=== PATIENT | female | born 1935 | race Caucasian/White ===

== ENCOUNTER → 2016-03-13 | Outpatient (CLI) | payer MEDICARE, BC ==
[2016-03-13 13:33] LABS: CH 31.1; HCT 46.4 % (34.0-46.0); HGB 14.5 gm/dL (11.4-16.0); MCH 30.6 pg (25.0-35.0); MCHC 31.2 g/dL (31.0-37.0); MCV 98.1 fL (80.0-100.0); Mean Platelet Volume 7.3; RBC 4.73 m/uL (3.80-5.40); RDW 14.3 % (11.5-15.5); WBC 8.9 k/uL (3.8-10.6)
[2016-03-13 13:46] LABS: Calcium 9.7 mg/dL (8.4-10.2); Magnesium 1.9 mg/dL (1.6-2.3); Phosphorous 4.1 mg/dL (2.5-4.5); Potassium 4.8 mmol/L (3.5-5.1); Uric Acid 6.1 mg/dL (3.7-7.4)
[2016-03-13 13:50] LABS: Appearance,Urine Cloudy (Clear); Bacteria,Urine Rare /hpf; Bilirubin,Urine Negative (Negative); Glucose,Urine (UA) Negative (Negative); Ketones,Urine Negative (Negative); Leukocyte Esterase,Urine Large (Negative); Mucus,Urine Rare /hpf; Nitrite,Urine Negative (Negative); Particle Count 5936; Protein,Urine Trace (Negative); RBC,Urine 1 /hpf (0-5); Squamous Epithelial Cell,Urine 2 /hpf (0-4); UA Billing (MACRO vs. MICRO) MICRO; Urobilinogen,Urine <2.0 mg/dL (<2.0); WBC,Urine 47 /hpf (0-5)
[2016-03-13 13:56] LABS: % Iron Saturation 34.9 % (20-50)
== END | disposition home or self-care (01) ==
LOC: LABWHC1 12:39
PROVIDERS: ATTEND Internal Medicine Endocrinology, Diabetes & Metabolism
DX: N18.3 Chronic kidney disease, stage 3 (moderate) (principal); D50.9 Iron deficiency anemia, unspecified; N39.0 Urinary tract infection, site not specified; N25.81 Secondary hyperparathyroidism of renal origin; E55.9 Vitamin D deficiency, unspecified; M10.9 Gout, unspecified; E05.90 Thyrotoxicosis, unspecified without thyrotoxic crisis or storm
CPT/HCPCS: 36415; 80048; 81001; 82306; 82728; 83540; 83550; 83735; 83970; 84100; 84439; 84443; 84550; 85027

== ENCOUNTER → 2016-05-05 | Outpatient (CLI) | payer MEDICARE, BC ==
--- NOTE | 2016-05-06 11:55 | US ---
EXAMINATION TYPE: US thyroid st tissue head/neck DATE OF EXAM: 05/05/2016 4:09 PM COMPARISON: 05/07/2014 CLINICAL HISTORY: E05.90 Thyrotoxicosis, unspecified wo thyrotoxic crisis. follow up nodules. Hypoth yroidism. No biopsies. On medication. GLAND SIZE: Right Lobe: 4.7 x 2.3 x 2.1 cm Overall Parenchyma: heterogenous Left Lobe: 5.1 x 2.6 x 2.5 cm Overall Parenchyma: heterogeneous Isthmus Thickness: 1.5 cm NODULES RIGHT: # of nodules measured on right: 3 1. 0.4 X 0.3 x 0.3 cm Calcification with shadowing at the upper pole with well-defined margins. Prior size: 0.4 x 0.4 x 0.4 cm 2. 0.8 X 0.6 x 0.8 cm isoechoic solid nodule at the mid pole with well-defined margins. This nodule is taller than wide and shows no intranodular vascularity. Prior size: 0.8 x 0.5 x 0.8 cm 3. 0.8 X 0.7 x 0.5 cm echogenic solid nodule at the lower pole with well-defined margins. This nodu le is taller than wide and shows no intranodular vascularity. Prior size: 1.0 x 0.6 x 0.8 cm LEFT: # of nodules measured on left: 2 1. 0.9 X 0.8 x 0.7 cm hypoechoic mixed nodule at the upper pole with well-defined margins. This no dule is taller than wide and shows no intranodular vascularity. Prior size: not seen previously 2. 2.1 X 1.8 x 1.7 cm Solid complex nodule at the mid pole with well-defined margins. This nodule i s taller than wide and shows peripheral vascularity. Prior size: 1.0 x 1.0 x 1.0 cm ISTHMUS: # of nodules measured in the isthmus: 0 TECHNOLOGIST IMPRESSION: Bilateral neck scanned, no abnormal lymphadenopathy noted. Bilateral heterogenous enlarged thyroid lobes. Previous isthmus nodules not seen. Isthmus appears h eterogenous and lobular with no distinct nodules seen. IMPRESSION: 1. New subcentimeter nodule left lobe thyroid. 2. Multinodular goiter
== END | disposition home or self-care (01) ==
LOC: RADUSMAIN 15:19
PROVIDERS: ATTEND Internal Medicine Endocrinology, Diabetes & Metabolism
DX: E04.2 Nontoxic multinodular goiter (principal); E05.90 Thyrotoxicosis, unspecified without thyrotoxic crisis or storm
CPT/HCPCS: 36415; 76536; 84439; 84443; 84480

== ENCOUNTER → 2016-07-20 | Outpatient (CLI) | payer MEDICARE, BC ==
--- NOTE | 2016-07-20 14:26 | CT ---
EXAMINATION TYPE: CT soft tissue neck w con DATE OF EXAM: 07/20/2016 2:05 PM HISTORY: Thyroid nodule per order. COMPARISON: Thyroid ultrasound May 05, 2016. CT DLP: 283.60 mGycm. Automated Exposure Control for Dose Reduction was Utilized. TECHNIQUE: CT scan of the neck is performed with IV Contrast, patient injected with 100 ml mL of Vis ipaque 320, axial images are obtained, coronal and sagittal reformatted images are reviewed. FINDINGS: Airway: Corresponding to recent ultrasound thyroid gland is enlarged in size and heterogeneous in julia earance. There is a hyperdense 1 cm nodule in the inferior left isthmus on axial image 17. There is d ominant heterogeneous hypoechoic nodule posteriorly upper pole level left thyroid lobe measuring 1.7 x 1.6 cm on axial image 25. This correlates with the largest complex cystic measured nodule on recent study. Smaller nodules on ultrasound are less well seen on CT. Mild underlying emphysematous changes felt present. Parotid/submandibular glands: Left submandibular gland is asymmetrically atrophic or surgically absen t. Carotid/Vascular Structures: There is mild to moderate calcified plaque at both carotid bulbs without significant stenosis identified bilaterally . Tortuous course to mid segment right common carotid ar alicia posterior to thyroid gland is noted. Dominant left vertebral artery is noted. Osseous Structures: There is grade 1 retrolisthesis of C5 on C6. There is mild to moderate multilevel spurring and disc space narrowing. Other: No greater than 1 cm neck adenopathy is seen. IMPRESSION: Correlating to recent ultrasound there is heterogeneous enlarged thyroid gland with a dom inant 1.8 cm nodule posteriorly upper to mid pole level left thyroid lobe, this nodule is increased i n size from prior study based on ultrasound report, consider ultrasound guided fine-needle aspiration to further assess.
== END | disposition home or self-care (01) ==
LOC: RADCTMAIN 10:55
PROVIDERS: ATTEND Surgery
DX: E04.1 Nontoxic single thyroid nodule (principal); E04.9 Nontoxic goiter, unspecified
CPT/HCPCS: 82565; 84520; 70491; 36415; Q9967

== ENCOUNTER 2016-08-08 08:31 | Inpatient (IN) | payer MEDICARE, BC ==
[2016-08-04 12:47] VITALS: BMI 23.4
[~2016-08-08 08:31] MED LIST: DEXAMETHASONE SOD PHOSPHATE 10 MG/ML 1 ML VIAL IV ONE; HEPARIN SODIUM,PORCINE 5,000 UNIT/ML 1 ML VIAL SQ ONE; MIDAZOLAM 2 MG/2 ML VIAL IV PRN; ONDANSETRON 4 MG/2 ML VIAL IVP ONE; Pre Op ABX Message 1 EACH MISC MISCELLANE ONE
[2016-08-08] MEDS ORDERED: LIDOCAINE 1% 20 ML VIAL (10MG/ML) FOR IV START INTRADERMA ONE (09:12)
[2016-08-08] MEDS ORDERED: HEPARIN SODIUM,PORCINE 5,000 UNIT/ML 1 ML VIAL SQ ONE (09:15)
[2016-08-08] MEDS: LACTATED RINGERS 1,000 ML IV SCH (09:23)
[2016-08-08 09:38] LABS: Calcium 8.6 mg/dL (8.4-10.2); Potassium 3.9 mmol/L (3.5-5.1)
[2016-08-08] MEDS ORDERED: LIDOCAINE 1% INJ 10MG/ML (20 ML MDV) ONE (09:39)
[2016-08-08] MEDS ORDERED: SUCCINYLCHOLINE CHLORIDE 100 MG/5 ML SYR IV ONE ×2 (09:39→13:39)
[2016-08-08] MEDS ORDERED: ePHEDrine 50 MG/ML 1 ML AMP ONE ×2 (09:39→13:39)
[2016-08-08] MEDS ORDERED: SODIUM CHLORIDE 0.9% 50 ML with ceFAZolin 1,000 MG IV ONE ×2 (09:39)
[2016-08-08] MEDS ORDERED: fentaNYL (PF) 50 MCG/ML 2 ML AMP ONE (09:39)
[2016-08-08] MEDS ORDERED: MIDAZOLAM 2 MG/2 ML VIAL ONE ×2 (09:39→13:39)
[2016-08-08] MEDS ORDERED: PHENYLEPHRINE-0.9% NACL SYG 1 MG/10 ML SYRINGE ONE (09:39)
[2016-08-08] MEDS ORDERED: LABETALOL 5 MG/ML VIAL MDV ONE (09:39)
[2016-08-08] MEDS ORDERED: PROPOFOL 10 MG/ML 20 ML VIAL IV ONE ×2 (09:39→13:39)
[2016-08-08] MEDS ORDERED: HYDROmorphone 1 MG/ML 1 ML SYRINGE IV PRN ×2 (12:38→14:55)
[2016-08-08] MEDS ORDERED: ONDANSETRON 4 MG/2 ML VIAL IVP PRN ×2 (12:38→14:55)
[2016-08-08] MEDS ORDERED: HYDROcodone/APAP 5-325MG 1 EACH TAB PO PRN (12:38)
--- NOTE | 2016-08-08 12:38 | P.OP ---
Date of Procedure: 08/08/16 Preoperative Diagnosis: Hyperthyroidism with bilateral thyroid nodules Postoperative Diagnosis: Same Procedure(s) Performed: Total thyroidectomy Implants: Anesthesia: OLEGA Surgeon: Ashley Rodgers Estimated Blood Loss (ml): 20 IV fluids (ml): 1,200 Urine output (ml): 50 Pathology: other (The thyroid gland) Condition: stable Disposition: PACU Indications for Procedure: bilateral thyroid nodules and hyperthyroidism Operative Findings: Bilateral thyroid nodules. Vascular inflamed gland Description of Procedure: Patient was taken to the operating room and following induction of general anesthesia , the patient was positioned in a beachchair position with some reverse Trendelenburg. Prior to this the [facility] nerve stimulator probes were placed. The neck was prepped and draped in a sterile fashion. A collar incision was made and carried down through the platysma. Superior and inferior skin flaps were developed. The strap muscles were then in the midline in the left lobe of the thyroid was approached. The graft was noted to be hypervascular and inflamed. The lobe was rotated medially. The superior pole vessels were identified. These were ligated and divided. The inferior pole vessels were likewise identified and ligated and divided. This dissection was performed on the gland in the superior and inferior parathyroids were identified and preserved. The recurrent laryngeal nerve was identified and preserved. Was rotated onto the trachea and the then multiple small vessels were identified which were ligated and divided. Some of these were divided using the Harmonic scalpel. Palpation in the neck did not reveal any adenopathy of concern. Following this the right side of the neck was approached. The side of the gland was also hypervascular and inflamed. The superior pole vessels were identified these were ligated and divided. Additionally the inferior pole vessels were identified and ligated and divided. The middle thyroid vein was identified this was ligated and divided. Superior and inferior parathyroid glands were identified and preserved. The recurrent laryngeal nerve was identified and preserved. The nerve on both sides was confirmed that the visual identification as well as identification within them and nerve stimulator. Palpation in the right side of the neck likewise did not reveal any adenopathy of concern. Following removal of the gland a suture was placed on the superior aspect of the left lobe for orientation. After we were assured that hemostasis was attained a Damien drain was placed. The strap muscles were closed in the midline using a 3-0 Vicryl suture. This was followed by closure of the platysma using a 3-0 Vicryl suture. The skin was closed using a 4-0 Monocryl and Steri-Strips were applied. All instrument and sponge counts were correct at the end of the case. The patient tolerated the procedure in stable condition.
[2016-08-08] MEDS ORDERED: DEXTROSE 5%-0.45% NACL 1,000 ML IV SCH (12:45)
[2016-08-08] MEDS ORDERED: CALCIUM CARBONATE 500 MG CHEWABLE PO PRN (12:48)
[2016-08-08] MEDS: HYDROmorphone 1 MG/ML 1 ML SYRINGE IVP PRN ×3 (13:21→15:30)
[2016-08-08] MEDS ORDERED: LACTATED RINGERS 1,000 ML IV ONE (13:39)
[2016-08-08] MEDS ORDERED: THROMBIN (BOVINE) 5,000 UNIT VIAL TOPICAL ONE (14:07)
[2016-08-08] MEDS ORDERED: GELATIN SPONGE,ABSORB (LARGE) 1 EACH SPONGE TOPICAL ONE (14:07)
--- NOTE | 2016-08-08 14:44 | P.PN ---
Elinor I was called to the recovery room approximately 30 minutes after the patient had arrived there secondary to the fact that the patient developed increased swelling in her neck. She had been evaluated initially upon arrival to the recovery room with no evidence of any swelling no drainage from her drain of concern and her voice strong. She had no change in her vital signs no change in her voice and no respiratory stridor. However, she was noted to have some increased swelling in her neck and therefore there was concern that she had bled into the area of the operative procedure and it was determined that she should be taken back to the operating room for irrigation and exploration. Dr. Gallo Lazo vascular surgery was consulted in the event that we should need vascular intervention. It was explained to the patient as well as to her that we would be returning to the operating room. It was felt that the patient was having some bleeding into her neck that going to go back to the operating room for exploration and evacuation of hematoma was the best option. They both were in agreement. They understood the risks and benefits and wished to proceed. Patient was immediately intubated in the preoperative area to avoid any airway compromise, the neck was noted to be swollen with some ecchymosis on the anterior neck. She was taken urgently to the operating suite. Objective - Vital Signs Vital signs: Vital Signs Temp 98.2 F 08/08/16 12:53 Pulse 96 08/08/16 13:23 Resp 18 08/08/16 13:23 BP 147/77 08/08/16 13:23 Pulse Ox 97 08/08/16 13:23 Intake & Output 08/07/16 08/08/16 08/08/16 18:59 06:59 18:59 Intake Total 1300 Output Total 220 Balance 1080 Intake: IV 1300 Output: Urine 50 Estimated Blood Loss 170 - Labs CBC & Chem 7: 08/08/16 09:15 Labs: Abnormal Lab Results - Last 24 Hours (Table) 08/08/16 Range/Units 09:15 Chloride 108 H (98-107) mmol/L Creatinine 1.15 H (0.52-1.04) mg/dL
--- NOTE | 2016-08-08 14:54 | P.OP ---
Date of Procedure: 08/08/16 Preoperative Diagnosis: Hematoma of the neck Postoperative Diagnosis: Same Procedure(s) Performed: Operative exploration, evacuation of hematoma, oversewing of a small unnamed vessel near the ligament of Valentine Implants: Anesthesia: OLEGA Surgeon: Ashley Rodgers Welding Equipment Repairer Supervisor #1: Gallo Alvarado Welding Equipment Repairer Supervisor #2: Sylwia Nelson Estimated Blood Loss (ml): 140 IV fluids (ml): 300 Pathology: none sent Condition: stable Disposition: PACU Indications for Procedure: Postoperative development of hematoma Operative Findings: Hematoma on the left side of the neck greater than the right with a small vascular bleeding near the area of the ligament of Valentine. This was less than a 0.5 mm in size Description of Procedure: The patient is an 80-year-old white female status post total thyroidectomy she had tolerated her initial operative procedure well with no evidence of intraoperative bleeding. The procedure had been done by Dr. Raymond Woodson with Sammie Nelson as certified surgical tech/first assistant. At the termination of the procedure there was no evidence of any active bleeding and the procedure was terminated and the patient taken to the recovery room. In the recovery room her incision was clean and dry her voice was strong and the patient was doing well. However, approximately a half an hour into the recovery room experience the nurse noted that the patients neck became acutley swollen. At this point we were concerned about a postoperative hematoma and it was determined that the take the patient should be taken back to the operating suite for exploration. Dr. Gallo Alvarado vascular surgery was consulted at this point, and joined us in the operating room. Upon arrival to the operating room general anesthesia was initiated. The neck was prepped and draped in a sterile fashion. The prior incision was opened and a hematoma was evacuated. Approximately 140 mL of old blood was noted. Upon evacuation of the hematoma there was noted on the left paratracheal area near the ligament of Valentine a very small vessel with active bleeding. This site was oversewn using Prolene suture. We were careful to avoid injury to the recurrent laryngeal nerve in the process. After this had been accomplished the wound was well irrigated. No other active site of bleeding was identified. Gelfoam and thrombin were placed on each side of the neck. A pullout channeled drain was placed. This was brought out lateral to the incision. Again after we were assured that hemostasis was attained the strap muscles were closed in the midline followed by closure of the platysma with Vicryl suture. The skin was closed using 4-0 Monocryl. Steri-Strips were applied. The patient tolerated procedure in stable condition. All instrument and sponge counts were correct at the end of the case.
[2016-08-08] MEDS ORDERED: NALOXONE 0.4 MG/ML 1 ML VIAL IV PRN (14:55)
[2016-08-08 15:59] LABS: Basophils % (A) 0 %; CHCM 32.4; Eosinophils # (A) 0.1 k/uL (0-0.7); Eosinophils % (A) 0 %; HCT 39.8 % (34.0-46.0); HDW 2.55; Luc # (Auto) 0.04; Luc % (Auto) 0; Lymphocytes # (A) 0.7 k/uL (1.0-4.8); Lymphocytes % (A) 6 %; MCH 31.6 pg (25.0-35.0); MCHC 32.7 g/dL (31.0-37.0); MCV 96.5 fL (80.0-100.0); Mean Platelet Volume 6.3; Monocytes # (A) 0.2 k/uL (0-1.0); Monocytes % (A) 1 %; Neutrophils # (A) 11.1 k/uL (1.3-7.7); Neutrophils % (A) 92 %; RBC 4.13 m/uL (3.80-5.40); RDW 14.1 % (11.5-15.5); WBC (Perox) 12.68
[2016-08-08] MEDS ORDERED: HEPARIN SODIUM,PORCINE 5,000 UNIT/ML 1 ML VIAL SQ SCH ×2 (16:00)
[2016-08-08 16:05] LABS: INR 1.1 (<1.1); Prothrombin Time 11.3 sec (9.0-12.0)
[2016-08-08 16:21] LABS: Glucose,Whole Blood 154 mg/dL (75-99)
[2016-08-08 17:03] LABS: Calcium 8.1 mg/dL (8.4-10.2); Magnesium 1.4 mg/dL (1.6-2.3); Phosphorous 4.3 mg/dL (2.5-4.5); Total Bilirubin 0.7 mg/dL (0.2-1.3); Total Protein 6.2 g/dL (6.3-8.2)
[2016-08-08 17:04] LABS: Potassium 3.9 mmol/L (3.5-5.1)
[2016-08-08] MEDS: DEXTROSE 5%-0.45% NACL 1,000 ML IV SCH (17:25)
[2016-08-08] MEDS: CALCIUM CARBONATE 500 MG CHEWABLE PO SCH ×2 (18:10→20:35)
[2016-08-08] MEDS: MAGNESIUM SULFATE-D5W PMX 1 GM in DEXTROSE/WATER 1 100ML.BAG IVPB SCH ×3 (18:10→20:25)
[2016-08-08] MEDS: FAMOTIDINE 20 MG TAB PO SCH (20:34)
[2016-08-08] MEDS ORDERED: FAMOTIDINE 20 MG TAB PO SCH (21:00)
[2016-08-08] MEDS ORDERED: CALCIUM GLUCONATE 1,000 MG in SODIUM CHLORIDE 0.9% 100 ML IVPB ONE (23:11)
[2016-08-09] MEDS ORDERED: HYDROcodone/APAP 5-325MG 1 EACH TAB PO PRN (00:01)
[2016-08-09 04:57] LABS: Basophils % (A) 0 %; CHCM 31.4; Eosinophils % (A) 0 %; HCT 36.5 % (34.0-46.0); HDW 2.41; HGB 11.5 gm/dL (11.4-16.0); Luc # (Auto) 0.19; Luc % (Auto) 2; Lymphocytes # (A) 1.2 k/uL (1.0-4.8); Lymphocytes % (A) 12 %; MCH 31.1 pg (25.0-35.0); MCHC 31.4 g/dL (31.0-37.0); MCV 99.1 fL (80.0-100.0); Mean Platelet Volume 7.1; Monocytes # (A) 0.6 k/uL (0-1.0); Monocytes % (A) 6 %; Neutrophils # (A) 8.1 k/uL (1.3-7.7); Neutrophils % (A) 81 %; RBC 3.68 m/uL (3.80-5.40); WBC 10.1 k/uL (3.8-10.6); WBC (Perox) 10.41
[2016-08-09 05:15] LABS: Calcium 7.9 mg/dL (8.4-10.2); Magnesium 2.3 mg/dL (1.6-2.3); Phosphorous 3.8 mg/dL (2.5-4.5); Potassium 3.8 mmol/L (3.5-5.1)
[2016-08-09] MEDS ORDERED: CALCIUM GLUCONATE 1,000 MG in SODIUM CHLORIDE 0.9% 100 ML IVPB ONE (05:49)
[2016-08-09] MEDS: LACTATED RINGERS 1,000 ML IV SCH (06:26)
[2016-08-09] MEDS: DEXTROSE 5%-0.45% NACL 1,000 ML IV SCH ×2 (06:39→10:56)
[2016-08-09] MEDS ORDERED: POTASSIUM CHLORIDE ER 20 MEQ TAB.ER PO ONE ×2 (06:50→12:00)
[2016-08-09] MEDS: CALCIUM CARBONATE 500 MG CHEWABLE PO SCH ×3 (08:13→20:54)
[2016-08-09] MEDS: FAMOTIDINE 20 MG TAB PO SCH (08:13)
[2016-08-09] MEDS ORDERED: ASCORBIC ACID 500 MG TAB PO SCH (09:00)
[2016-08-09] MEDS ORDERED: FOLIC ACID 1 MG TAB PO SCH (09:00)
[2016-08-09] MEDS ORDERED: prednisoLONE ACETATE 1% OPHTH DROPS 1 ML BTL LEFT EYE SCH (09:00)
--- NOTE | 2016-08-09 09:06 | P.CNPUL ---
History of Present Illness Consult date: 08/09/16 Chief complaint: ICU management post-thyroidectomy History of present illness: 80-year-old female patient with known history of bilateral thyroid nodules and hyperthyroidism. The patient was taken to the operating room yesterday by Dr. Lucinda Woodson and she underwent a total thyroidectomy. Estimated blood loss was 20 mL and the patient received a total of 1200 mL of IV fluids and operating room. Approximately 30 minutes., The surgeon was contacted back in the recovery room as the patient was getting increased swelling in her neck. She was evaluated in the recovery and apparently she had no significant swelling and there was no active drainage from her drain and she had a strong voice. Subsequently she was noted to have some increased swelling in the neck and there was a concern of bleeding. Was determined to take the patient back to the operating room for exploration and irrigation. The patient was immediately intubated in the preoperative area to avoid any airway compromise. The neck was noted to be swollen and there was some ecchymosis on the anterior neck. She was taken back to the operating room and the patient underwent exploration and hematoma was identified in the neck and this was evacuated and oversewing of a small on May vessel near the ligament of Valentine was performed. Following that, the patient got moved to the intensive care for further monitoring. Note that after controlling of the bleeding in the evacuation of the hematoma the patient was extubated and currently she is on room air with a pulse ox of 97%. The patient has a DUKE drain in the anterior neck area and has drained approximately 100 mL since 8 PM yesterday. She is not having any respiratory distress pH is able to talk. She is a strong voice. No stridor. She is a bit hypothermic with temperature any 5.2 and she was given external warming and she is up to 97.4. The hemoglobin is stable and it is above 11. She was given 1 g of calcium for a calcium level of 7.9. This was subsequently repeated. As such she received a total of 2 g of calcium. She is on IV fluids with D5 half-normal saline at the rate of 100 mL an hour. She has no active pain issues. No change in mental status. Lungs remain clear. Review of Systems All systems: negative Constitutional: Denies chills, Denies fever Eyes: denies blurred vision, denies pain Ears, nose, mouth and throat: Denies headache, Denies sore throat Cardiovascular: Denies chest pain, Denies shortness of breath Respiratory: Denies cough Gastrointestinal: Denies abdominal pain, Denies diarrhea, Denies nausea, Denies vomiting Genitourinary: Denies dysuria, Denies hematuria Musculoskeletal: Denies myalgias Integumentary: Denies pruritus, Denies rash Neurological: Denies numbness, Denies weakness Psychiatric: Denies anxiety, Denies depression Endocrine: Denies fatigue, Denies weight change Past Medical History Past Medical History: Blood Disorder, Deep Vein Thrombosis (DVT), Eye Disorder, GERD/Reflux, Thyroid Disorder Additional Past Medical History / Comment(s): History of recurrent DVTs, possible hypercoagulable state nontender the patient has been told to have a pins position for a blood clotting disorder, chronic pernicious anemia, cystocele, hemorrhoids, abdominal wall hernia, thyroid nodules, osteoporosis, GERD, suspected Graves' disease History of Any Multi-Drug Resistant Organisms: None Reported Past Surgical History: Cholecystectomy, Hernia Repair, Hysterectomy Additional Past Surgical History / Comment(s): Colonoscopy; EGD; EXC Cataracts. Past Anesthesia/Blood Transfusion Reactions: No Reported Reaction Past Psychological History: No Psychological Hx Reported Smoking Status: Never smoker Past Alcohol Use History: None Reported Past Drug Use History: None Reported - Past Family History Mother Family Medical History: No Reported History Medications and Allergies Home Medications Medication Instructions Recorded Confirmed Type Ascorbic Acid [Vitamin C] 500 mg PO DAILY 05/14/15 08/08/16 History Cholecalciferol [Vitamin D3] 1,000 unit PO DAILY 05/14/15 08/08/16 History Folic Acid 0.4 mg PO DAILY 05/14/15 08/08/16 History Multivitamins, Thera [Multivitamin] 1 tab PO DAILY 05/14/15 08/08/16 History Cyanocobalamin [Vitamin B-12 1,000 mcg SQ QMONTH 08/04/16 08/08/16 History Injection] Iodine Strong 5% 3 drops PO TID 08/04/16 08/08/16 History Loperamide HCl [Imodium A-D] 2 mg PO DAILY PRN 08/04/16 08/08/16 History Omeprazole [PriLOSEC] 20 mg PO AC-BRKFST 08/04/16 08/08/16 History Potassium Magnesium 1 tab PO DAILY 08/04/16 08/08/16 History Propylene Glycol [Systane Balance] 1 - 2 drop BOTH EYES QID PRN 08/04/16 History Selenium 200 mcg PO DAILY 08/04/16 08/08/16 History prednisoLONE ACETATE 1% OPHTH 1 drops LEFT EYE Q48H 08/04/16 08/08/16 History [Pred Forte 1%] Methimazole [Tapazole] 17.5 mg PO DAILY 08/08/16 08/08/16 History Allergies Allergy/AdvReac Type Severity Reaction Status Date / Time calcitriol [From Rocaltrol] Allergy Rash/Hives Verified 08/08/16 09:03 pneumococcal 23-valent Allergy Swelling Verified 08/08/16 09:03 polysacchari [From Pneumovax 23] aspirin AdvReac Nausea & Verified 08/08/16 09:03 Vomiting clopidogrel [From Plavix] AdvReac Nausea & Verified 08/08/16 09:03 Vomiting codeine AdvReac Nausea & Verified 08/08/16 09:03 Vomiting latex AdvReac Rash/Hives Verified 08/08/16 09:03 propoxyphene HCl AdvReac Unknown Verified 08/08/16 09:03 [From Darvon] Sulfa (Sulfonamide AdvReac Nausea & Verified 08/08/16 09:03 Antibiotics) Vomiting blood thinners AdvReac Nausea & Uncoded 08/08/16 09:03 Vomiting, OVER THINNED BLOOD SEVERELY Physical Exam Vitals: Vital Signs Temp Pulse Pulse Pulse Resp BP BP 08/09/16 07:00 64 20 140/72 08/09/16 06:00 64 13 123/66 08/09/16 05:00 68 14 115/59 08/09/16 04:00 72 14 134/78 08/09/16 03:00 97.4 F L 68 14 125/63 08/09/16 02:00 73 25 H 136/66 08/09/16 01:00 71 20 116/61 08/09/16 00:00 97.4 F L 74 25 H 131/71 08/08/16 23:00 95.2 F L 75 19 108/71 08/08/16 22:00 77 14 118/73 08/08/16 21:00 95.2 F L 80 22 120/74 08/08/16 20:00 90 19 138/75 08/08/16 19:49 08/08/16 19:00 92 18 138/75 08/08/16 18:00 90 15 127/78 08/08/16 17:30 96 21 121/82 08/08/16 17:00 95 18 121/82 08/08/16 16:30 98 18 133/71 08/08/16 16:27 97.6 F 97 18 133/71 08/08/16 16:00 102 H 16 129/76 08/08/16 15:45 101 H 16 131/70 08/08/16 15:30 106 H 16 132/65 08/08/16 15:15 18 122/74 08/08/16 15:01 97.6 F 99 18 123/70 08/08/16 13:23 96 18 147/77 08/08/16 13:08 97 18 136/80 08/08/16 12:53 98.2 F 99 20 151/73 08/08/16 09:01 98.2 F 87 18 BP Pulse Ox 08/09/16 07:00 97 08/09/16 06:00 97 08/09/16 05:00 96 08/09/16 04:00 97 08/09/16 03:00 95 08/09/16 02:00 96 08/09/16 01:00 98 08/09/16 00:00 95 08/08/16 23:00 97 08/08/16 22:00 96 08/08/16 21:00 97 08/08/16 20:00 97 08/08/16 19:49 94 L 08/08/16 19:00 97 08/08/16 18:00 94 L 08/08/16 17:30 97 08/08/16 17:00 98 08/08/16 16:30 94 L 08/08/16 16:27 96 08/08/16 16:00 95 08/08/16 15:45 97 08/08/16 15:30 95 08/08/16 15:15 96 08/08/16 15:01 98 08/08/16 13:23 97 08/08/16 13:08 98 08/08/16 12:53 98 08/08/16 09:01 154/70 97 Intake and Output 08/08/16 08/09/16 08/09/16 22:59 06:59 14:59 Intake Total 990 900 200 Output Total 190 118 Balance 800 782 200 Intake: IV 150 Intake, IV Titration 600 900 200 Amount Calcium Gluconate 1,000 100 100 mg In Sodium Chloride 0.9 % 100 ml @ 100 mls/hr IVPB ONCE ONE Rx#: [id number] Dextrose 5%-0.45% NaCl 1, 300 800 100 000 ml @ 100 mls/hr IV . Q10H [facility] Rx#:[id number] Magnesium Sulfate-D5w Pmx 300 1 gm In Dextrose/Water 1 100ml.bag @ 100 mls/hr IVPB Q1H [facility] Rx#: [id number] Oral 240 Output: Drainage 40 43 Anterior Neck 40 43 Urine 150 75 Other: Voiding Method Indwelling Catheter Indwelling Catheter # Voids 1 # Bowel Movements 1 Weight 54.431 kg 60.1 kg Head exam was generally normal. There was no scleral icterus or corneal arcus. Mucous membranes were moist. The patient has exophthalmos more so in the left eye. Neck is supple. The patient has a soft neck which is free of any hematoma at this point. Surgical incision is clean and intact. The patient has a DUKE drain in place. No hematoma. No firmness. No collection. Full range of motion. There is a skin bruising over the anterior neck and this is extending to the sternum and anterior chest area. No swelling however.Lungs were clear to auscultation and percussion, and with normal diaphragmatic excursion. No wheezes or rales were noted. Cardiac exam revealed the PMI to be normally situated and sized. The rhythm was regular and no extrasystoles were noted during several minutes of auscultation. The first and second heart sounds were normal and physiologic splitting of the second heart sound was noted. There were no murmurs, rubs, clicks, or gallops. Abdomen is soft and the patient is an anterior abdominal wall incision and a large reducible nonincarcerated anterior abdominal wall hernia. Bowel sounds are present.Examination of the extremities revealed easily palpable radial, femoral and pedal pulses. There was no cyanosis, clubbing or edema. Results - Laboratory Findings CBC and BMP: 08/09/16 03:54 08/09/16 03:54 PT/INR, D-dimer PT 11.3 sec (9.0-12.0) 06/06/17 15:50 INR 1.1 (<1.1) 08/08/16 15:50 Abnormal lab findings: Abnormal Labs 08/08/16 08/08/16 08/08/16 09:15 15:00 15:50 WBC 12.0 H RBC Neutrophils # 11.1 H Lymphocytes # 0.7 L Sodium Chloride 108 H 111 H Carbon Dioxide 18 L Creatinine 1.15 H 1.18 H Glucose 150 H POC Glucose (mg/dL) Calcium 8.1 L Magnesium 1.4 L Total Protein 6.2 L Albumin 3.2 L 08/08/16 08/08/16 08/09/16 16:18 22:13 03:54 WBC RBC Neutrophils # Lymphocytes # Sodium Chloride Carbon Dioxide Creatinine Glucose POC Glucose (mg/dL) 154 H Calcium 7.6 L 7.9 L Magnesium Total Protein Albumin 08/09/16 08/09/16 03:54 03:54 WBC RBC 3.68 L Neutrophils # 8.1 H Lymphocytes # Sodium 134 L Chloride Carbon Dioxide Creatinine 1.12 H Glucose 136 H POC Glucose (mg/dL) Calcium 7.9 L Magnesium Total Protein Albumin Assessment and Plan Plan: Assessment 1 Graves' disease/thyroid nodules, status post total thyroidectomy, postop day # 1 2 post thyroidectomy neck hematoma secondary to a bleeding vessel, patient is status post exploration and control of the bleeding and evacuation of the hematoma, postop day #1 and the patient was premedicated with iodine oral prior to surgery. She was maintained and Tapazole for hyperthyroidism on outpatient basis. 3 Graves' disease ophthalmopathy 4 postoperative hypocalcemia, given a total of 2 g of calcium, we'll monitor the calcium level and look for any signs of hypoparathyroidism 5 anterior abdominal wall hernia 6 pernicious anemia 7 history of hypercoagulability with recurrent DVT is currently on no anticoagulants Plan The patient's airway is secured and there is evidence of a hematoma in the neck nor there is any evidence of airway compromise. Keep the DUKE drain in place for another 24 hours and monitor the output. SCDs to lower extremities for DVT prophylaxis. May possibly need thyroid hormone supplementation I will leave it up to the surgeon and with diagnostic technician to decide upon that. Monitor the calcium level and watch for any signs of hypo-calcium anemia. The patient is an IV fluids this will be continued. Adequate pain control. Steroid eye drops. Move the patient to a medical floor. 6 history of DVT with a possible hypercoagulable state
[2016-08-09 11:49] LABS: Calcium 8.2 mg/dL (8.4-10.2); Potassium 3.6 mmol/L (3.5-5.1)
[2016-08-09] MEDS ORDERED: Potassium Replacement Protocol 1 EACH MISC MISCELLANE PRN (11:55)
[2016-08-09] MEDS ORDERED: CHOLECALCIFEROL 1,000 UNIT TAB PO SCH (12:00)
--- NOTE | 2016-08-09 12:03 | P.PN ---
Subjective 80-year-old female being seen and examined in the ICU. Patient is postop total thyroidectomy done on August 08 for bilateral thyroid nodules and hyperthyroidism postop done on August 08 patient developed a hematoma return to the operating room to undergo operative exploration evacuation of a hematoma oversewing of a small unnamed vessel near the ligament of Valentine currently. Currently patient is sitting up in the bed taking a diet. Dressing to the surgical site is dry. Patient has a Jesus-Lu drain to the anterior neck area has put out 100 mL' s in the last 12 hours. Patient's voice is not hoarse. Patient is not having any respiratory distress. Currently patient is on a nasal cannula at 2 L a sats are 99% patient states she has chronic tingling to her fingers on her left hand but is not experiencing any new tingling to the bilateral hands calcium 7.9 this morning mg 2.3 repeat calcium is currently pending Objective - Vital Signs Vital signs: Vital Signs Temp 97.5 F L 08/09/16 08:00 Pulse 64 08/09/16 11:00 Resp 16 08/09/16 11:22 BP 135/64 08/09/16 11:00 Pulse Ox 100 08/09/16 11:00 Intake & Output 08/08/16 08/09/16 08/09/16 18:59 06:59 18:59 Intake Total 2190 1300 700 Output Total 320 208 400 Balance 1870 1092 300 Weight 54.431 kg 60.1 kg Intake: IV 1750 Intake, IV Titration 200 1300 700 Amount Calcium Gluconate 1,000 100 200 mg In Sodium Chloride 0.9 % 100 ml @ 100 mls/hr IVPB ONCE ONE Rx#: [id number] Dextrose 5%-0.45% NaCl 1, 100 1000 500 000 ml @ 100 mls/hr IV . Q10H LISA Rx#:[id number] Magnesium Sulfate-D5w Pmx 100 200 1 gm In Dextrose/Water 1 100ml.bag @ 100 mls/hr IVPB Q1H LISA Rx#: [id number] Oral 240 Output: Drainage 83 Anterior Neck 83 Urine 150 125 400 Estimated Blood Loss 170 Other: Voiding Method Indwelling Catheter Indwelling Catheter Toilet # Voids 1 1 # Bowel Movements 1 1 - Exam Physical exam 80-year-old female sitting up in bed taking a diet voice is not hoarse denies any numbness to bilateral hands no difficulty in swallowing pleasant cooperative oriented 3 Lungs essentially clear with adequate air movement currently on room air Heart S1-S2 audible and regular monitor sinus Neck dressing to the surgical site dry Jesus-Lu drain in place anterior 20 mL noted in the bulb no clots Abdomen soft nontender reports no nausea vomiting does have a soft abdominal wall hernia Extremities no edema to the upper or lower extremities - Labs CBC & Chem 7: 08/09/16 03:54 08/09/16 03:54 Labs: Abnormal Lab Results - Last 24 Hours (Table) 08/08/16 08/08/16 08/08/16 Range/Units 13:10 15:00 15:50 WBC 12.0 H (3.8-10.6) k/uL RBC (3.80-5.40) m/uL Neutrophils # 11.1 H (1.3-7.7) k/uL Lymphocytes # 0.7 L (1.0-4.8) k/uL Sodium (137-145) mmol/L Chloride 111 H (98-107) mmol/L Carbon Dioxide 18 L (22-30) mmol/L Creatinine 1.18 H (0.52-1.04) mg/dL Glucose 150 H (74-99) mg/dL POC Glucose (mg/dL) (75-99) mg/dL Calcium 8.1 L (8.4-10.2) mg/dL Magnesium 1.4 L (1.6-2.3) mg/dL Total Protein 6.2 L (6.3-8.2) g/dL Albumin 3.2 L (3.5-5.0) g/dL PTH Intact <5.5 L (14.0-72.0) pg/mL 08/08/16 08/08/16 08/09/16 Range/Units 16:18 22:13 03:54 WBC (3.8-10.6) k/uL RBC (3.80-5.40) m/uL Neutrophils # (1.3-7.7) k/uL Lymphocytes # (1.0-4.8) k/uL Sodium (137-145) mmol/L Chloride (98-107) mmol/L Carbon Dioxide (22-30) mmol/L Creatinine (0.52-1.04) mg/dL Glucose (74-99) mg/dL POC Glucose (mg/dL) 154 H (75-99) mg/dL Calcium 7.6 L 7.9 L (8.4-10.2) mg/dL Magnesium (1.6-2.3) mg/dL Total Protein (6.3-8.2) g/dL Albumin (3.5-5.0) g/dL PTH Intact (14.0-72.0) pg/mL 08/09/16 08/09/16 Range/Units 03:54 03:54 WBC (3.8-10.6) k/uL RBC 3.68 L (3.80-5.40) m/uL Neutrophils # 8.1 H (1.3-7.7) k/uL Lymphocytes # (1.0-4.8) k/uL Sodium 134 L (137-145) mmol/L Chloride (98-107) mmol/L Carbon Dioxide (22-30) mmol/L Creatinine 1.12 H (0.52-1.04) mg/dL Glucose 136 H (74-99) mg/dL POC Glucose (mg/dL) (75-99) mg/dL Calcium 7.9 L (8.4-10.2) mg/dL Magnesium (1.6-2.3) mg/dL Total Protein (6.3-8.2) g/dL Albumin (3.5-5.0) g/dL PTH Intact (14.0-72.0) pg/mL Assessment and Plan Plan: Impression History of Graves' disease with hyperthyroidism postop August 08 total thyroidectomy Post op unexpected thyroidectomy hematoma of the neck operative exploration, evacuation of hematoma, oversewing of a small unname vessel near the ligament of Valentine Chronic anterior abdominal wall hernia stable Pernicious anemia Postoperative hypo-calcium given a total of 2 g of calcium Graves' disease with thyroid nodules Plan Await endocrinology Dr. Ruff's input for management of the calcium levels Continue to monitor and watch for any signs of hypocalcemia Continue postop surgical care Pain control Patient may be moved to medical floor SCDs to the lower extremities for DVT prophylaxis Jesus-Lu drain management as ordered Further recommendations pending The above dictated assessment and findings were discussed with Dr. Lucinda Andrade Impression and the plan of care have been dictated as directed. Nallely Ayala nurse practitioner acting as a scribe for Dr. Restrepo
[2016-08-09] MEDS: HYDROcodone/APAP 5-325MG 1 EACH TAB PO PRN ×2 (15:46→20:55)
[2016-08-09] MEDS ORDERED: LOPERAMIDE 2 MG CAP PO STA (16:16)
[2016-08-09] MEDS: LOPERAMIDE 2 MG CAP PO PRN (16:46)
[2016-08-09 19:27] LABS: Basophils % (A) 0 %; CH 31.2; CHCM 32.2; Eosinophils # (A) 0.1 k/uL (0-0.7); Eosinophils % (A) 1 %; HDW 2.56; HGB 12.2 gm/dL (11.4-16.0); Luc # (Auto) 0.12; Luc % (Auto) 1; Lymphocytes # (A) 1.4 k/uL (1.0-4.8); Lymphocytes % (A) 16 %; MCH 31.3 pg (25.0-35.0); MCHC 32.1 g/dL (31.0-37.0); MCV 97.7 fL (80.0-100.0); Mean Platelet Volume 6.7; Monocytes # (A) 0.4 k/uL (0-1.0); Monocytes % (A) 4 %; Neutrophils # (A) 6.5 k/uL (1.3-7.7); Neutrophils % (A) 77 %; RBC 3.89 m/uL (3.80-5.40); RDW 14.1 % (11.5-15.5); WBC 8.5 k/uL (3.8-10.6); WBC (Perox) 8.72
[2016-08-09 19:44] LABS: Calcium 8.4 mg/dL (8.4-10.2); Potassium 4.7 mmol/L (3.5-5.1)
--- NOTE | 2016-08-09 21:44 | PN ---
DATE OF SERVICE: 08/09/2016 CHIEF COMPLAINT: Status post thyroidectomy. HISTORY OF PRESENT ILLNESS: This lady is doing well. She has had no hoarseness, fever, chills, significant pain, swelling, carpopedal spasm, etc. PHYSICAL EXAM: Vital signs are normal. Chest is clear. Cardiac exam is normal. Dressing is dry. IMPRESSION: Status post thyroidectomy. PLAN: No recommendation for change in program. Her calcium is slightly low.
--- NOTE | 2016-08-09 21:50 | CONS ---
DATE OF CONSULTATION: CHIEF COMPLAINT: Status post thyroidectomy for Graves' disease. HISTORY OF PRESENT ILLNESS: This lady is admitted for elective total thyroidectomy. REVIEW OF SYSTEMS: She has had no recent headaches, chest pain, shortness of breath, abdominal pain, fever, chills, nausea, vomiting, diarrhea, etc. Past medical history, family history and personal and social histories are unremarkable and can be found in her initial admitting summary. ALLERGIES: 1. ROCALTROL. 2. COUMADIN. 3. FLU VACCINE. 4. PNEUMOVAX. 5. LATEX. 6. CODEINE. 7. ASPIRIN. 8. SULFA. Medications have included: 1. Tapazole 10 mg once a day. 2. Magnesium oxide 400 mg once a day. 3. Omeprazole 20 mg once a day. 4. Prednisolone ophthalmic suspension 1% one drop to the left eye every day. 5. Vitamin B12 once a month. 6. Vitamin D 50,000 units a month. 7. Calcium 1300 mg a day. 8. Iron 325 mg t.i.d. 9. Vitamin C. 10. Folic acid. The remainder of her history is unremarkable. PHYSICAL EXAMINATION: Blood pressure 138/74 with a pulse of 81, respirations of 20, and she is afebrile. In general she appeared to be well-developed, well-nourished, in no acute distress. Skin color is normal. Skin is warm and dry. Lymph nodes are not enlarged. Head, ears, eyes, nose, mouth and throat were normal. Neck veins are not distended. Dressing was in place on the neck. Chest is clear. Cardiac exam is normal with sinus rhythm and no murmurs. ABDOMEN: Soft, nontender. She had multiple scars with a ventral hernia from previous surgeries. EXTREMITIES: Normal. Neurologically she is intact. Voice is intact. IMPRESSION: Status post thyroidectomy for Graves' disease. RECOMMENDATION: No change in program or medications.
[2016-08-10] MEDS: DEXTROSE 5%-0.45% NACL 1,000 ML IV SCH ×2 (00:31→15:04)
[2016-08-10] MEDS: HYDROcodone/APAP 5-325MG 1 EACH TAB PO PRN ×3 (00:59→15:10)
[2016-08-10 07:11] LABS: Basophils % (A) 0 %; CHCM 31.3; Eosinophils # (A) 0.1 k/uL (0-0.7); Eosinophils % (A) 2 %; HCT 38.8 % (34.0-46.0); HDW 2.45; HGB 12.2 gm/dL (11.4-16.0); Luc # (Auto) 0.09; Luc % (Auto) 2; Lymphocytes # (A) 1.2 k/uL (1.0-4.8); Lymphocytes % (A) 20 %; MCH 31.3 pg (25.0-35.0); MCHC 31.4 g/dL (31.0-37.0); MCV 99.6 fL (80.0-100.0); Macrocytosis Slight; Mean Platelet Volume 6.6; Monocytes # (A) 0.3 k/uL (0-1.0); Monocytes % (A) 6 %; Neutrophils # (A) 4.3 k/uL (1.3-7.7); Neutrophils % (A) 72 %; RDW 14.3 % (11.5-15.5); WBC (Perox) 6.45
[2016-08-10 07:28] LABS: Calcium 8.3 mg/dL (8.4-10.2); Magnesium 1.6 mg/dL (1.6-2.3); Phosphorous 3.3 mg/dL (2.5-4.5); Potassium 4.5 mmol/L (3.5-5.1)
[2016-08-10 08:50] VITALS: RESP 16
[2016-08-10] MEDS ORDERED: FAMOTIDINE 20 MG TAB PO SCH (09:00)
[2016-08-10] MEDS: CALCIUM CARBONATE 500 MG CHEWABLE PO SCH (09:04)
[2016-08-10] MEDS ORDERED: MAGNESIUM OXIDE 400 MG TAB PO STA (10:57)
--- NOTE | 2016-08-10 11:10 | P.DS ---
Providers Date of admission: 08/08/16 14:47 Expected date of discharge: 08/10/16 Attending physician: Ashley Rodgers Consults: 08/08/16 12:43 Consult Physician Routine Consulting Provider: Sharon Ruff Consult Reason/Comments: total thyroidectomy follow for calcium levels and thyroid replacement Do you want consulting provider notified?: Yes 08/08/16 12:45 Consult Physician Routine Consulting Provider: Lobito Miguel Consult Reason/Comments: medical managment Do you want consulting provider notified?: Yes 08/08/16 16:02 Consult Physician Urgent Consulting Provider: Ranulfo Bruce Consult Reason/Comments: ICU management Do you want consulting provider notified?: Yes Primary care physician: Lobito Miguel Hospital Course: 80-year-old female presented on the day of admission to undergo total thyroidectomy which was done on August 08 for bilateral thyroid nodules and hyperthyroidism postop on August 08 patient developed a hematoma return to the operating room to undergo operative exploration evacuation of a hematoma oversewing of a small unnamed vessel near the ligament of Valentine patient was admitted to the intensive care unit for closer monitoring . . Patient has a Jesus-Lu drain to the anterior neck area hemoglobin was monitored closely. Patient's voice was not hoarse. Patient not experience any respiratory distress. patient states she has chronic tingling to her fingers on her left hand but is not experiencing any new tingling to the bilateral hands . On the day of discharge date August hemoglobin 12.2. White count 6. Calcium 8.3. magnesium 1.6. Albumin 3.1 Patient was seen and followed by Dr. Ruff moss picker throughout the course of the hospitalization with recommendations appreciated From all consulting physicians patient was felt to be appropriate proceed with a discharge to home at the time of discharge Jesus-Lu drain in place serous sanguinous drainage noted plan was to leave the drain in place until seen in the office and a follow-up visit in one week Impression discharge to History of Graves' disease with hyperthyroidism postop August 08 total thyroidectomy Post op unexpected thyroidectomy hematoma of the neck operative exploration, evacuation of hematoma, oversewing of a small unname vessel near the ligament of Valentine Chronic anterior abdominal wall hernia stable Pernicious anemia Postoperative hypo-calcium given a total of 2 g of calcium Graves' disease with thyroid nodules The above dictated assessment and findings were discussed with Dr. Lucinda Andrade Impression and the plan of care have been dictated as directed. Nallely Ayala nurse practitioner acting as a scribe for Dr. Restrepo Plan - Discharge Summary New Discharge Prescriptions: New HYDROcodone/APAP 5-325MG [Cranks 5-325] 1 each PO Q4HR PRN #30 tab PRN Reason: Moderate Pain Calcium Carbonate [Tums] 500 mg PO BID Loperamide [Imodium] 4 mg PO DAILY PRN cap PRN Reason: Gi Upset Continue Folic Acid 0.4 mg PO DAILY Multivitamins, Thera [Multivitamin (formulary)] 1 tab PO DAILY Cyanocobalamin [Vitamin B-12 Injection] 1,000 mcg SQ QMONTH Omeprazole [PriLOSEC] 20 mg PO AC-BRKFST prednisoLONE ACETATE 1% OPHTH [Pred Forte 1%] 1 drops LEFT EYE Q48H Propylene Glycol [Systane Balance] 1 - 2 drop BOTH EYES QID PRN PRN Reason: DRY EYES Loperamide HCl [Imodium A-D] 2 mg PO DAILY PRN PRN Reason: Diarrhea Discontinued Cholecalciferol [Vitamin D3] 1,000 unit PO DAILY Ascorbic Acid [Vitamin C] 500 mg PO DAILY Iodine Strong 5% 3 drops PO TID Methimazole [Tapazole] 17.5 mg PO DAILY No Action Selenium 200 mcg PO DAILY Potassium Magnesium 1 tab PO DAILY Discharge Medication List Folic Acid 0.4 mg PO DAILY 05/14/15 [History] Multivitamins, Thera [Multivitamin (formulary)] 1 tab PO DAILY 05/14/15 [History ] Cyanocobalamin [Vitamin B-12 Injection] 1,000 mcg SQ QMONTH 08/04/16 [History] Loperamide HCl [Imodium A-D] 2 mg PO DAILY PRN 08/04/16 [History] Omeprazole [PriLOSEC] 20 mg PO AC-BRKFST 08/04/16 [History] Potassium Magnesium 1 tab PO DAILY 08/04/16 [History] Propylene Glycol [Systane Balance] 1 - 2 drop BOTH EYES QID PRN 08/04/16 [ History] Selenium 200 mcg PO DAILY 08/04/16 [History] prednisoLONE ACETATE 1% OPHTH [Pred Forte 1%] 1 drops LEFT EYE Q48H 08/04/16 [ History] Calcium Carbonate [Tums] 500 mg PO BID 08/10/16 [Rx] HYDROcodone/APAP 5-325MG [Cranks 5-325] 1 each PO Q4HR PRN #30 tab 08/10/16 [Rx] Loperamide [Imodium] 4 mg PO DAILY PRN cap 08/10/16 [Rx] Follow up Appointment(s)/Referral(s): Ashley Rodgers MD [STAFF PHYSICIAN] - 1 Week Sharon Ruff MD [STAFF PHYSICIAN] - 1 Week Activity/Diet/Wound Care/Special Instructions: Jesus-Lu drain instructions Discharge Disposition: HOME SELF-CARE
[2016-08-10] MEDS: LOPERAMIDE 2 MG CAP PO PRN (11:16)
[2016-08-10 12:17] VITALS: BP 149/76; PULSE 71; TEMP 97.6
--- NOTE | 2016-08-10 16:36 | P.PN ---
Subjective Principal diagnosis: Thyroidectomy, complicated by hematoma. 80-year-old female patient with known history of bilateral thyroid nodules and hyperthyroidism. The patient was taken to the operating room yesterday by Dr. Lucinda Woodson and she underwent a total thyroidectomy. Estimated blood loss was 20 mL and the patient received a total of 1200 mL of IV fluids and operating room. Approximately 30 minutes., The surgeon was contacted back in the recovery room as the patient was getting increased swelling in her neck. She was evaluated in the recovery and apparently she had no significant swelling and there was no active drainage from her drain and she had a strong voice. Subsequently she was noted to have some increased swelling in the neck and there was a concern of bleeding. Was determined to take the patient back to the operating room for exploration and irrigation. The patient was immediately intubated in the preoperative area to avoid any airway compromise. The neck was noted to be swollen and there was some ecchymosis on the anterior neck. She was taken back to the operating room and the patient underwent exploration and hematoma was identified in the neck and this was evacuated and oversewing of a small on May vessel near the ligament of Valentine was performed. Following that, the patient got moved to the intensive care for further monitoring. Note that after controlling of the bleeding in the evacuation of the hematoma the patient was extubated and currently she is on room air with a pulse ox of 97%. The patient has a DUKE drain in the anterior neck area and has drained approximately 100 mL since 8 PM yesterday. She is not having any respiratory distress pH is able to talk. She is a strong voice. No stridor. She is a bit hypothermic with temperature any 5.2 and she was given external warming and she is up to 97.4. The hemoglobin is stable and it is above 11. She was given 1 g of calcium for a calcium level of 7.9. This was subsequently repeated. As such she received a total of 2 g of calcium. She is on IV fluids with D5 half-normal saline at the rate of 100 mL an hour. She has no active pain issues. No change in mental status. Lungs remain clear. The patient is seen again today 08/10/2016 in follow-up. She is awake and alert in no acute distress. Her incision to the neck is clean dry well approximated. Steri-Strips are intact. No dysphagia. No shortness of breath, no cough or congestion. She is maintaining good O2 saturations in the mid 90s on room air. She is afebrile. Hemodynamically stable. Calcium level 8.3. Objective - Vital Signs Vital signs: Vital Signs Temp 97.6 F 08/10/16 11:45 Pulse 71 08/10/16 11:45 Resp 16 08/10/16 11:45 BP 149/76 08/10/16 11:45 Pulse Ox 96 08/10/16 11:45 Intake & Output 08/09/16 08/10/16 08/10/16 18:59 06:59 18:59 Intake Total 1000 600 Output Total 430 45 5 Balance 570 -45 595 Intake: Intake, IV Titration 1000 Amount Calcium Gluconate 1,000 200 mg In Sodium Chloride 0.9 % 100 ml @ 100 mls/hr IVPB ONCE ONE Rx#: [id number] Dextrose 5%-0.45% NaCl 1, 700 000 ml @ 100 mls/hr IV . Q10H LISA Rx#:[id number] Magnesium Sulfate-D5w Pmx 100 1 gm In Dextrose/Water 1 100ml.bag @ 100 mls/hr IVPB Q1H LISA Rx#: [id number] Oral 600 Output: Drainage 30 45 5 Anterior Neck 30 45 5 Urine 400 Other: Voiding Method Toilet Toilet # Voids 1 1 1 # Bowel Movements 1 - Exam Head exam was generally normal. There was no scleral icterus or corneal arcus. Mucous membranes were moist. The patient has exophthalmos more so in the left eye. Neck is supple. The patient has a soft neck which is free of any hematoma at this point. Surgical incision is clean and intact. The patient has a DUKE drain in place. No hematoma. No firmness. No collection. Full range of motion. There is a skin bruising over the anterior neck and this is extending to the sternum and anterior chest area. No swelling however.Lungs were clear to auscultation and percussion, and with normal diaphragmatic excursion. No wheezes or rales were noted. Cardiac exam revealed the PMI to be normally situated and sized. The rhythm was regular and no extrasystoles were noted during several minutes of auscultation. The first and second heart sounds were normal and physiologic splitting of the second heart sound was noted. There were no murmurs, rubs, clicks, or gallops. Abdomen is soft and the patient is an anterior abdominal wall incision and a large reducible nonincarcerated anterior abdominal wall hernia. Bowel sounds are present.Examination of the extremities revealed easily palpable radial, femoral and pedal pulses. There was no cyanosis, clubbing or edema. - Labs CBC & Chem 7: 08/10/16 06:41 08/10/16 06:41 Labs: Abnormal Lab Results - Last 24 Hours (Table) 08/09/16 08/10/16 Range/Units 18:48 06:41 Creatinine 1.12 H (0.52-1.04) mg/dL Calcium 8.3 L (8.4-10.2) mg/dL Albumin 3.1 L (3.5-5.0) g/dL Assessment and Plan Plan: Assessment 1 Graves' disease/thyroid nodules, status post total thyroidectomy, postop day # 2 2 post thyroidectomy neck hematoma secondary to a bleeding vessel, patient is status post exploration and control of the bleeding and evacuation of the hematoma, postop day #1 and the patient was premedicated with iodine oral prior to surgery. She was maintained and Tapazole for hyperthyroidism on outpatient basis. 3 Graves' disease ophthalmopathy 4 postoperative hypocalcemia, given a total of 2 g of calcium, we'll monitor the calcium level and look for any signs of hypoparathyroidism 5 anterior abdominal wall hernia 6 pernicious anemia 7 history of hypercoagulability with recurrent DVT is currently on no anticoagulants Plan The patient was seen and evaluated by Dr. Del Valle. She is stable from the pulmonary critical care standpoint. We will see the patient on as-needed basis.
--- NOTE | 2016-08-10 17:35 | P.CNEND ---
History of Present Illness Consult date: 08/10/16 History of present illness: 80-year-old patient who was admitted for total thyroidectomy. Patient has multinodular goiter and hyperthyroidism. Patient is on methimazole 4 hyperthyroidism. She had biopsy of thyroid nodules done and result was suspicious for thyroid cancer. Patient underwent total thyroidectomy. No history of hoarseness of voice. No history of numbness tingling or cramps. Postoperatively patient's calcium level has remained stable. Patient reports slight discomfort in the anterior part of the neck otherwise doing very well. No history of swallowing difficulties Review of Systems Constitutional: Denies chills, Denies fever Eyes: denies blurred vision, denies pain Respiratory: Denies cough Gastrointestinal: Denies abdominal pain, Denies diarrhea, Denies nausea, Denies vomiting Genitourinary: Denies dysuria, Denies hematuria Musculoskeletal: Denies myalgias Integumentary: Denies pruritus, Denies rash Neurological: Denies numbness, Denies weakness Psychiatric: Denies anxiety, Denies depression Hematologic/Lymphatic: Reports as per HPI Allergic/Immunologic: Reports as per HPI Past Medical History Past Medical History: Blood Disorder, Deep Vein Thrombosis (DVT), Eye Disorder, GERD/Reflux, Thyroid Disorder Additional Past Medical History / Comment(s): History of recurrent DVTs, possible hypercoagulable state nontender the patient has been told to have a pins position for a blood clotting disorder, chronic pernicious anemia, cystocele, hemorrhoids, abdominal wall hernia, thyroid nodules, osteoporosis, GERD, suspected Graves' disease History of Any Multi-Drug Resistant Organisms: None Reported Past Surgical History: Cholecystectomy, Hernia Repair, Hysterectomy Additional Past Surgical History / Comment(s): Colonoscopy; EGD; EXC Cataracts. Past Anesthesia/Blood Transfusion Reactions: No Reported Reaction Past Psychological History: No Psychological Hx Reported Smoking Status: Never smoker Past Alcohol Use History: None Reported Past Drug Use History: None Reported - Past Family History Mother Family Medical History: No Reported History Medications and Allergies Home Medications Medication Instructions Recorded Confirmed Type Folic Acid 0.4 mg PO DAILY 05/14/15 08/08/16 History Multivitamins, Thera [Multivitamin 1 tab PO DAILY 05/14/15 08/08/16 History (formulary)] Cyanocobalamin [Vitamin B-12 1,000 mcg SQ QMONTH 08/04/16 08/08/16 History Injection] Loperamide HCl [Imodium A-D] 2 mg PO DAILY PRN 08/04/16 08/08/16 History Omeprazole [PriLOSEC] 20 mg PO AC-BRKFST 08/04/16 08/08/16 History Potassium Magnesium 1 tab PO DAILY 08/04/16 08/08/16 History Propylene Glycol [Systane Balance] 1 - 2 drop BOTH EYES QID PRN 08/04/16 History Selenium 200 mcg PO DAILY 08/04/16 08/08/16 History prednisoLONE ACETATE 1% OPHTH 1 drops LEFT EYE Q48H 08/04/16 08/08/16 History [Pred Forte 1%] Allergies Allergy/AdvReac Type Severity Reaction Status Date / Time calcitriol [From Rocaltrol] Allergy Rash/Hives Verified 08/08/16 09:03 pneumococcal 23-valent Allergy Swelling Verified 08/08/16 09:03 polysacchari [From Pneumovax 23] aspirin AdvReac Nausea & Verified 08/08/16 09:03 Vomiting clopidogrel [From Plavix] AdvReac Nausea & Verified 08/08/16 09:03 Vomiting codeine AdvReac Nausea & Verified 08/08/16 09:03 Vomiting latex AdvReac Rash/Hives Verified 08/08/16 09:03 propoxyphene HCl AdvReac Unknown Verified 08/08/16 09:03 [From Darvon] Sulfa (Sulfonamide AdvReac Nausea & Verified 08/08/16 09:03 Antibiotics) Vomiting blood thinners AdvReac Nausea & Uncoded 08/08/16 09:03 Vomiting, OVER THINNED BLOOD SEVERELY Physical Exam Vitals: Vital Signs Temp Pulse Resp BP Pulse Ox 08/10/16 11:45 97.6 F 71 16 149/76 96 08/10/16 08:25 97.9 F 79 16 158/73 95 08/10/16 00:34 97.5 F L 67 18 133/65 94 L 08/09/16 20:20 98.3 F 78 20 110/62 97 08/09/16 17:34 97.7 F 72 20 124/59 97 Intake and Output 08/10/16 08/10/16 08/10/16 06:59 14:59 22:59 Intake Total 600 Output Total 15 5 Balance -15 595 Intake: Oral 600 Output: Drainage 15 5 Anterior Neck 15 5 Other: Voiding Method Toilet # Voids 1 1 1 - Constitutional General appearance: average body habitus - EENT Eyes: EOMI - Neck Carotids: right: upstroke delayed - Respiratory Respiratory: bilateral: CTA - Cardiovascular Rhythm: regular Heart sounds: normal: S1, S2 - Gastrointestinal General gastrointestinal: no organomegaly, soft, no tenderness - Neurologic Neurologic: CNII-XII intact - Musculoskeletal Musculoskeletal: gait normal - Psychiatric Psychiatric: A&O x's 3, appropriate affect Results - Labs Result Diagrams: 08/10/16 06:41 08/10/16 06:41 Abnormal Lab Results - Last 24 Hours (Table) 08/09/16 08/10/16 Range/Units 18:48 06:41 Creatinine 1.12 H (0.52-1.04) mg/dL Calcium 8.3 L (8.4-10.2) mg/dL Albumin 3.1 L (3.5-5.0) g/dL Diabetes panel 08/09/16 08/10/16 Range/Units 18:48 06:41 Sodium 140 (137-145) mmol/L Potassium 4.7 4.5 (3.5-5.1) mmol/L Chloride 107 (98-107) mmol/L Carbon Dioxide 27 (22-30) mmol/L BUN 10 (7-17) mg/dL Creatinine 1.12 H (0.52-1.04) mg/dL Glucose 84 (74-99) mg/dL Calcium 8.4 8.3 L (8.4-10.2) mg/dL Albumin 3.1 L (3.5-5.0) g/dL Calcium panel 08/09/16 08/10/16 Range/Units 18:48 06:41 Calcium 8.4 8.3 L (8.4-10.2) mg/dL Phosphorus 3.3 (2.5-4.5) mg/dL Albumin 3.1 L (3.5-5.0) g/dL Pituitary panel 08/09/16 08/10/16 Range/Units 18:48 06:41 Sodium 140 (137-145) mmol/L Potassium 4.7 4.5 (3.5-5.1) mmol/L Chloride 107 (98-107) mmol/L Carbon Dioxide 27 (22-30) mmol/L BUN 10 (7-17) mg/dL Creatinine 1.12 H (0.52-1.04) mg/dL Glucose 84 (74-99) mg/dL Calcium 8.4 8.3 L (8.4-10.2) mg/dL Adrenal panel 08/09/16 08/10/16 Range/Units 18:48 06:41 Sodium 140 (137-145) mmol/L Potassium 4.7 4.5 (3.5-5.1) mmol/L Chloride 107 (98-107) mmol/L Carbon Dioxide 27 (22-30) mmol/L BUN 10 (7-17) mg/dL Creatinine 1.12 H (0.52-1.04) mg/dL Glucose 84 (74-99) mg/dL Calcium 8.4 8.3 L (8.4-10.2) mg/dL Albumin 3.1 L (3.5-5.0) g/dL Assessment and Plan (1) Thyroid malignant neoplasm Status: Acute (2) Hyperthyroidism Status: Acute (3) Multinodular goiter Status: Acute Plan: Patient is status post total thyroidectomy. She she had biopsy done which was consistent with suspicion for papillary thyroid cancer. Patient is recovering well Patient's calcium level stayed stable. No symptoms of hypocalcemia. Labs normal We'll follow-up on surgical pathology and further treatment of thyroid cancer be done as an outpatient Discontinue methimazole. This was discussed with the patient that she does not need methimazole. The need for replacement of thyroid hormone will be decided as an outpatient. Thank you for letting me participate in patient care.
--- NOTE | 2016-08-10 18:33 | PN ---
CHIEF COMPLAINT: Status post thyroidectomy for Graves' disease. HISTORY OF PRESENT ILLNESS: This lady is doing well and expects to go home today. Calcium dropped slightly, but now it is back up. She is having no chest pain, muscle spasms, etc. PHYSICAL EXAM: She has ecchymosis on the anterior neck down into the upper anterior chest. CHEST: Clear. CARDIAC: Normal. ABDOMEN: Soft, nontender. IMPRESSION: 1. Status post thyroidectomy for Graves' disease. 2. Probably home today.
== END 2016-08-10 18:10 | disposition home or self-care (01) | DRG 626 ==
LOC: OR 08:31 → 6ICU 14:47 → 6PED 08-09 17:57
PROVIDERS: ADMIT Surgery; ATTEND Surgery
PROC: 0GTK0ZZ Resection of Thyroid Gland, Open Approach (ICD-10-PCS; principal; 2016-08-08 09:30)
PROC: 0W360ZZ Control Bleeding in Neck, Open Approach (ICD-10-PCS; principal; 2016-08-08 09:30)
DX: C73 Malignant neoplasm of thyroid gland (principal); M96.841 Postprocedural hematoma of a musculoskeletal structure following other procedure; D51.0 Vitamin B12 deficiency anemia due to intrinsic factor deficiency; E83.51 Hypocalcemia; K21.9 Gastro-esophageal reflux disease without esophagitis; K43.9 Ventral hernia without obstruction or gangrene; M81.0 Age-related osteoporosis without current pathological fracture; Z79.899 Other long term (current) drug therapy; Z86.718 Personal history of other venous thrombosis and embolism; Y83.8 Other surgical procedures as the cause of abnormal reaction of the patient, or of later complication, without mention of misadventure at the time of the procedure; Z88.5 Allergy status to narcotic agent; Z88.2 Allergy status to sulfonamides; Z88.7 Allergy status to serum and vaccine; Z88.4 Allergy status to anesthetic agent; Z91.040 Latex allergy status; E05.20 Thyrotoxicosis with toxic multinodular goiter without thyrotoxic crisis or storm
CPT/HCPCS: 80048; 80053; 82040; 82310; 83735; 83970; 84100; 84132; 85025; 85610; 86850; 86870; 86880; 86900; 86901; 86902; 88307

== ENCOUNTER → 2016-09-13 | Outpatient (CLI) | payer MEDICARE, BC ==
[2016-09-13 14:10] LABS: Basophils % (A) 0 %; CHCM 32.6; Eosinophils # (A) 0.1 k/uL (0-0.7); Eosinophils % (A) 1 %; HCT 41.3 % (34.0-46.0); HDW 2.57; HGB 13.9 gm/dL (11.4-16.0); Luc # (Auto) 0.17; Luc % (Auto) 2; Lymphocytes # (A) 1.9 k/uL (1.0-4.8); Lymphocytes % (A) 25 %; MCH 32.3 pg (25.0-35.0); MCHC 33.8 g/dL (31.0-37.0); MCV 95.7 fL (80.0-100.0); Mean Platelet Volume 6.7; Monocytes # (A) 0.3 k/uL (0-1.0); Monocytes % (A) 4 %; Neutrophils # (A) 5.1 k/uL (1.3-7.7); Neutrophils % (A) 67 %; RBC 4.31 m/uL (3.80-5.40); RDW 15.2 % (11.5-15.5); WBC 7.6 k/uL (3.8-10.6); WBC (Perox) 7.75
[2016-09-13 14:28] LABS: Calcium 7.9 mg/dL (8.4-10.2); Potassium 3.5 mmol/L (3.5-5.1); Uric Acid 7.3 mg/dL (3.7-7.4)
[2016-09-13 14:34] LABS: Appearance,Urine Cloudy (Clear); Bacteria,Urine Moderate /hpf; Bilirubin,Urine Negative (Negative); Glucose,Urine (UA) Negative (Negative); Ketones,Urine Negative (Negative); Leukocyte Esterase,Urine Large (Negative); Mucus,Urine Rare /hpf; Nitrite,Urine Positive (Negative); PH, Urine 5.5 (5.0-8.0); Particle Count 59717; Protein,Urine Trace (Negative); RBC,Urine 4 /hpf (0-5); Specific Gravity,Urine 1.008 (1.001-1.035); UA Billing (MACRO vs. MICRO) MICRO; Urobilinogen,Urine <2.0 mg/dL (<2.0); WBC,Urine >182 /hpf (0-5)
[2016-09-13 14:37] LABS: % Iron Saturation 30.6 % (20-50)
[2016-09-13 16:05] LABS: Magnesium 0.9 mg/dL (1.6-2.3)
== END | disposition home or self-care (01) ==
LOC: LABWHC1 13:37
PROVIDERS: ATTEND Nurse Practitioner Family
DX: N18.3 Chronic kidney disease, stage 3 (moderate) (principal)
CPT/HCPCS: 36415; 80048; 81001; 82306; 82728; 83540; 83550; 83735; 83970; 84100; 84550; 85025

== ENCOUNTER → 2016-09-20 | Outpatient (CLI) | payer MEDICARE, BC | END | disposition home or self-care (01) | LOC: LABWHC1 11:32 | PROVIDERS: ATTEND Internal Medicine Endocrinology, Diabetes & Metabolism | DX: C73 Malignant neoplasm of thyroid gland (principal) | CPT/HCPCS: 36415; 84432; 84443; 86800 ==

== ENCOUNTER → 2016-10-03 | Outpatient (CLI) | payer MEDICARE, BC ==
--- NOTE | 2016-10-04 14:01 | MM ---
Reason for exam: screening (asymptomatic). Last mammogram was performed 1 year and 1 month ago. History: Patient is postmenopausal. Physical Findings: A clinical breast exam by your physician is recommended on an annual basis and results should be correlated with mammographic findings. MG Screening Mammo w CAD Bilateral CC and MLO view(s) were taken. Prior study comparison: August 23, 2015, bilateral MG screening mammo w CAD. August 25, 2014, right breast MG work up mamm w CAD RT. There are scattered fibroglandular densities. No significant changes when compared with prior studies. ASSESSMENT: Negative, BI-RAD 1 RECOMMENDATION: Routine screening mammogram of both breasts in 1 year.
== END | disposition home or self-care (01) ==
LOC: RADMAMWWP 13:24
PROVIDERS: ATTEND Obstetrics & Gynecology
DX: Z12.31 Encounter for screening mammogram for malignant neoplasm of breast (principal)

== ENCOUNTER → 2016-10-11 | Outpatient (CLI) | payer MEDICARE, BC ==
--- NOTE | 2016-10-12 08:53 | NM ---
EXAMINATION: NM Thyroid I-131 therapy for cancer (outpatient) DATE: 10/11/2016 HISTORY: 80-year-old female with 9 mm focus of invasive thyroid cancer. Status post thyroidectomy wit h negative margins. COMPARISON: None. RADIOTRACER: 104.0 mCi I-131. TECHNIQUE: The patient was instructed to hold thyroid medication. TSH was checked and was greater renard n 95. Patient has been maintained on low iodine diet for 2 weeks. Dose was prescribed (written directive) by an Authorized User in conjunction with treatment request joseph Ruff. Risks, benefits, and potential complications of radioactive I-131 therapy were discussed in detail wi th the patient by myself and the [employer]ina sales and service supervisor. Verbal and written informed consent wer e obtained. Written instructions were given for radiation safety precautions to be observed for 5 day s outpatient. The patient specific exposure calculations were done by RSO to ensure estimated max dose to any indiv idual exposed to the patient was less than 5 mSv. The patient was specifically advised to avoid close contact with children, women, and other members of public. Dose was verified in dose caliber and patient was given oral I-131 pill under the supervision of me tank velez the [employer] sales and service supervisor. There were no immediate complications. IMPRESSION: Outpatient 104.0 mCi I-131 oral therapy capsule for thyroid cancer remnant ablation. The patient will follow-up next week for post ablation whole body scan.
== END | disposition home or self-care (01) ==
LOC: RADNMMAIN 13:30
PROVIDERS: ATTEND Internal Medicine Endocrinology, Diabetes & Metabolism
DX: C73 Malignant neoplasm of thyroid gland (principal); Z98.890 Other specified postprocedural states
CPT/HCPCS: 84439; 84443; 84432; 86800; 79005; A9517

== ENCOUNTER → 2016-10-23 | Outpatient (CLI) | payer MEDICARE, BC | END | disposition home or self-care (01) | LOC: LABWHC1 11:34 | PROVIDERS: ATTEND Internal Medicine Endocrinology, Diabetes & Metabolism | DX: C73 Malignant neoplasm of thyroid gland (principal) | CPT/HCPCS: 36415; 84432; 84443; 86800 ==

== ENCOUNTER → 2017-02-02 | Outpatient (CLI) | payer MEDICARE, BC ==
[2017-02-02 13:13] LABS: CH 30.5; CHCM 30.8; HCT 41.7 % (34.0-46.0); HDW 2.51; HGB 13.2 gm/dL (11.4-16.0); Hypochromasia Slight; MCH 31.6 pg (25.0-35.0); MCHC 31.7 g/dL (31.0-37.0); MCV 99.7 fL (80.0-100.0); Mean Platelet Volume 7.4; RBC 4.18 m/uL (3.80-5.40); RDW 14.6 % (11.5-15.5); WBC 7.8 k/uL (3.8-10.6)
[2017-02-02 13:16] LABS: Appearance,Urine Turbid (Clear); Bacteria,Urine Rare /hpf; Bilirubin,Urine Negative (Negative); Glucose,Urine (UA) Negative (Negative); Ketones,Urine Negative (Negative); Leukocyte Esterase,Urine Large (Negative); Mucus,Urine Rare /hpf; Nitrite,Urine Negative (Negative); Particle Count 5956; Protein,Urine 1+ (Negative); RBC,Urine 2 /hpf (0-5); Specific Gravity,Urine 1.007 (1.001-1.035); Squamous Epithelial Cell,Urine 9 /hpf (0-4); UA Billing (MACRO vs. MICRO) MICRO; Urobilinogen,Urine <2.0 mg/dL (<2.0); WBC,Urine >182 /hpf (0-5)
[2017-02-02 13:37] LABS: Calcium 7.1 mg/dL (8.4-10.2); Magnesium 1.5 mg/dL (1.6-2.3); Phosphorus 5.1 mg/dL (2.5-4.5); Potassium 3.9 mmol/L (3.5-5.1); Uric Acid 5.9 mg/dL (3.7-7.4)
[2017-02-02 18:47] LABS: Iron Saturation 23.72 (12.00-45.00)
== END | disposition home or self-care (01) ==
LOC: LABWHC1 12:19
PROVIDERS: ATTEND Nurse Practitioner Family
DX: N18.3 Chronic kidney disease, stage 3 (moderate) (principal); D50.9 Iron deficiency anemia, unspecified; N39.0 Urinary tract infection, site not specified; N25.81 Secondary hyperparathyroidism of renal origin; M10.9 Gout, unspecified; E55.9 Vitamin D deficiency, unspecified
CPT/HCPCS: 36415; 80048; 81001; 82306; 82728; 83540; 83550; 83735; 83970; 84100; 84550; 85027

== ENCOUNTER → 2017-04-04 | Outpatient (CLI) | payer MEDICARE, BC | LOC: LABWHC1 13:07 | PROVIDERS: ATTEND Internal Medicine Endocrinology, Diabetes & Metabolism | DX: C73 Malignant neoplasm of thyroid gland (principal) | CPT/HCPCS: 36415; 84443 ==

== ENCOUNTER → 2017-05-08 | Outpatient (CLI) | payer MEDICARE, BC ==
[2017-05-08 15:14] LABS: Calcium 8.1 mg/dL (8.4-10.2); Potassium 4.6 mmol/L (3.5-5.1)
== END | disposition home or self-care (01) ==
LOC: LABWHC1 14:25
PROVIDERS: ATTEND Nurse Practitioner Family
DX: N18.3 Chronic kidney disease, stage 3 (moderate) (principal)
CPT/HCPCS: 36415; 80048

== ENCOUNTER → 2017-07-10 | Outpatient (CLI) | payer MEDICARE, BC ==
[2017-07-10 20:21] LABS: Thyroglobulin <0.20 ng/mL (1.60-59.90)
== END | disposition home or self-care (01) ==
LOC: LABWHC1 14:09
PROVIDERS: ATTEND Internal Medicine Endocrinology, Diabetes & Metabolism
DX: C73 Malignant neoplasm of thyroid gland (principal)
CPT/HCPCS: 36415; 84432; 84443; 86800

== ENCOUNTER → 2017-08-01 | Outpatient (CLI) | payer MEDICARE, BC ==
[2017-08-01 13:41] LABS: HCT 40.6 % (34.0-46.0); HGB 13.5 gm/dL (11.4-16.0); MCH 32.8 pg (25.0-35.0); MCHC 33.3 g/dL (31.0-37.0); MCV 98.4 fL (80.0-100.0); Mean Platelet Volume 6.8; Platelet Count 241 k/uL (150-450); RBC 4.13 m/uL (3.80-5.40); WBC 6.1 k/uL (3.8-10.6)
[2017-08-01 13:53] LABS: Amorphous Sediment,Urine Occasional /hpf; Appearance,Urine Cloudy (Clear); Bacteria,Urine Few /hpf; Bilirubin,Urine Negative (Negative); Blood,Urine Negative (Negative); Color,Urine Light Yellow; Glucose,Urine (UA) Negative (Negative); Ketones,Urine Trace (Negative); Leukocyte Esterase,Urine Large (Negative); Mucus,Urine Rare /hpf; Nitrite,Urine Negative (Negative); Protein,Urine Negative (Negative); Specific Gravity,Urine 1.004 (1.001-1.035); Squamous Epithelial Cell,Urine 3 /hpf (0-4); Urobilinogen,Urine <2.0 mg/dL (<2.0); WBC,Urine 16 /hpf (0-5)
[2017-08-01 14:01] LABS: Calcium 8.3 mg/dL (8.4-10.2); Magnesium 1.7 mg/dL (1.6-2.3); Phosphorus 5.7 mg/dL (2.5-4.5); Potassium 4.1 mmol/L (3.5-5.1); Uric Acid 6.8 mg/dL (3.7-7.4)
[2017-08-01 18:45] LABS: Iron Saturation 17.14 (12.00-45.00)
[2017-08-01 18:46] LABS: Parathyroid Hormone Intact 34.1 pg/mL (14.0-72.0)
[2017-08-01 19:26] LABS: Anti-DNA, DS unit <1.0 IU/mL; DNA Double-Stranded NEGATIVE (NEGATIVE)
[2017-08-02 13:55] LABS: C-ANCA <1:20 Titer (<1:20); P-ANCA <1:20 Titer (<1:20)
== END | disposition home or self-care (01) ==
LOC: LABWHC1 12:08
PROVIDERS: ATTEND Nurse Practitioner Family
DX: N18.3 Chronic kidney disease, stage 3 (moderate) (principal); D63.1 Anemia in chronic kidney disease; R80.9 Proteinuria, unspecified; N39.0 Urinary tract infection, site not specified; E21.3 Hyperparathyroidism, unspecified; E55.9 Vitamin D deficiency, unspecified; M10.9 Gout, unspecified
CPT/HCPCS: 36415; 80048; 81001; 82728; 83516; 83540; 83550; 83735; 83883; 83970; 84100; 84166; 84550; 85027; 86038; 86160; 86162; 86225; 86255; 86334

== ENCOUNTER → 2017-12-25 | Outpatient (CLI) | payer MEDICARE, BC ==
--- NOTE | 2017-12-25 12:49 | BD ---
EXAMINATION TYPE: Axial Bone Density DATE OF EXAM: 12/25/2017 COMPARISON: NONE CLINICAL HISTORY: Postmenopausal female. Osteoporosis screening. Height: 4 FT 10 1/2 IN Weight: 111 FRAX RISK QUESTIONS: History of Fracture in Adulthood: YES Secondary Osteoporosis: RISK FACTORS HISTORY OF: History of Wrist Fracture: LT WRIST When: 10 YEARS AGO Family History of Osteoporosis: YES Active: YES Postmenopausal woman: AGE 49 Lost more than 2 inches in height since high school: YES MEDICATIONS: Thyroid Medications: YES Which medication: LEVOTHYROXINE How Lon YEARS Additional Medications: OMEPRAZOLE,LEVOTHYROXINE,MAGNESIUM, CALCIUM,VIT D, FOLIC ACID, Additional History: THYROID CANCER 2017 EXAM MEASUREMENTS: Bone mineral densitometry was performed using the mydeco System. Bone mineral density as measured about the Lumbar spine is: ----- L1-L4(G/cm2): 0.911 T Score Values are as follows: ----- L2: -2.2 ----- L3: -2.9 ----- L4: -1.2 ----- L1-L4: -2.2 Bone mineral density has: INCREASED 6.5 % since study of: 2015 Bone mineral density about the R hip (g/cm2): 0.693 Bone mineral density about the L hip (g/cm2): 0.716 T Score values are as follows: -----R Neck: -2.5 -----L Neck: -2.3 -----R Total: -2.3 -----L Total: -2.2 Bone mineral density has: INCREASED 2.7 % since study of: 2015 IMPRESSION: Osteoporosis (T Score less than -2.5). There is increased fracture risk and therapy is usually indicated based on age. Re-Screen 1-2 years. NOTE: T-SCORE=SD OF THE YOUNG ADULT MEAN.
--- NOTE | 2017-12-26 12:43 | MM ---
Reason for exam: screening (asymptomatic). Last mammogram was performed 1 year and 3 months ago. History: Patient is postmenopausal. Physical Findings: A clinical breast exam by your physician is recommended on an annual basis and results should be correlated with mammographic findings. MG Screening Mammo w CAD Bilateral CC and MLO view(s) were taken. Prior study comparison: October 03, 2016, bilateral MG screening mammo w CAD. August 23, 2015, bilateral MG screening mammo w CAD. There are scattered fibroglandular densities. No significant changes when compared with prior studies. ASSESSMENT: Benign, BI-RAD 2 RECOMMENDATION: Routine screening mammogram of both breasts in 1 year.
== END ==
LOC: RADMAMWWP 10:36
PROVIDERS: ATTEND Obstetrics & Gynecology
DX: Z12.31 Encounter for screening mammogram for malignant neoplasm of breast (principal); M81.0 Age-related osteoporosis without current pathological fracture
CPT/HCPCS: 77067; 77080

== ENCOUNTER → 2017-12-25 | Outpatient (CLI) | payer MEDICARE, BC ==
--- NOTE | 2017-12-25 12:17 | US ---
EXAMINATION TYPE: US thyroid st tissue head/neck DATE OF EXAM: 12/25/2017 COMPARISON: US, NM CLINICAL HISTORY: C73 Malignant neoplasm of thyroid gland; patient S/P total thyroidectomy 2017 US of Thyroid bed: no thyroid tissue is seen bilaterally. Bilateral neck scanned: no evidence of lymphadenopathy. IMPRESSION: No residual thyroid tissue seen in the surgical bed. No abnormal local adenopathy.
== END | disposition home or self-care (01) ==
LOC: RADUSWWP 10:41
PROVIDERS: ATTEND Internal Medicine Endocrinology, Diabetes & Metabolism
DX: C73 Malignant neoplasm of thyroid gland (principal)
CPT/HCPCS: 76536

== ENCOUNTER → 2018-01-15 | Outpatient (CLI) | payer MEDICARE, BC ==
[2018-01-15 21:56] LABS: Thyroglobulin <0.20 ng/mL (1.60-59.90)
== END | disposition home or self-care (01) ==
LOC: LABWHC1 12:14
PROVIDERS: ATTEND Internal Medicine Endocrinology, Diabetes & Metabolism
DX: C73 Malignant neoplasm of thyroid gland (principal)
CPT/HCPCS: 36415; 84432; 84443; 86800

== ENCOUNTER → 2018-01-29 | Outpatient (CLI) | payer MEDICARE, BC ==
[2018-01-29 14:53] LABS: Appearance,Urine Clear (Clear); Bacteria,Urine Moderate /hpf; Bilirubin,Urine Negative (Negative); Blood,Urine Negative (Negative); Color,Urine Light Yellow; Glucose,Urine (UA) Negative (Negative); Ketones,Urine Negative (Negative); Leukocyte Esterase,Urine Large (Negative); Mucus,Urine Rare /hpf; Nitrite,Urine Negative (Negative); Protein,Urine Negative (Negative); RBC,Urine 1 /hpf (0-5); Specific Gravity,Urine 1.005 (1.001-1.035); Squamous Epithelial Cell,Urine 1 /hpf (0-4); Urobilinogen,Urine <2.0 mg/dL (<2.0); WBC,Urine 22 /hpf (0-5)
[2018-01-29 15:10] LABS: Basophils % (A) 1 %; Eosinophils # (A) 0.1 k/uL (0-0.7); Eosinophils % (A) 1 %; HCT 42.8 % (34.0-46.0); Lymphocytes # (A) 1.3 k/uL (1.0-4.8); Lymphocytes % (A) 25 %; MCH 30.5 pg (25.0-35.0); MCHC 30.4 g/dL (31.0-37.0); MCV 100.2 fL (80.0-100.0); Macrocytosis Slight; Mean Platelet Volume 7.8; Monocytes # (A) 0.4 k/uL (0-1.0); Monocytes % (A) 8 %; Neutrophils # (A) 3.4 k/uL (1.3-7.7); Neutrophils % (A) 63 %; Platelet Count 270 k/uL (150-450); RBC 4.27 m/uL (3.80-5.40); RDW 14.6 % (11.5-15.5); WBC 5.4 k/uL (3.8-10.6)
[2018-01-29 18:58] LABS: Albumin 4.1 g/dL (3.80-4.90); Anion Gap 5.2 mmol/L (4.00-12.00); Calcium 8.7 mg/dL (8.7-10.3); Carbon Dioxide 31.8 mmol/L (21.6-31.8); Iron Saturation 31.85 (12.00-45.00); Magnesium 1.8 mg/dL (1.5-2.4); Phosphorus 3.9 mg/dL (2.4-5.1); Potassium 4.7 mmol/L (3.5-5.5); Uric Acid 6.1 mg/dL (2.9-7.7)
[2018-01-29 19:06] LABS: Vitamin D 25 Hydroxy 36.2 ng/mL (30.0-100.0)
[2018-01-29 19:54] LABS: Parathyroid Hormone Intact 26.8 pg/mL (14.0-72.0)
== END ==
LOC: LABWHC1 13:02
PROVIDERS: ATTEND Internal Medicine Nephrology
DX: E55.9 Vitamin D deficiency, unspecified (principal); N25.81 Secondary hyperparathyroidism of renal origin; D63.1 Anemia in chronic kidney disease; N18.3 Chronic kidney disease, stage 3 (moderate); M10.9 Gout, unspecified; N39.0 Urinary tract infection, site not specified
CPT/HCPCS: 36415; 80048; 81001; 82040; 82306; 82728; 83540; 83550; 83735; 83970; 84100; 84550; 85025

== ENCOUNTER 2018-06-16 07:17 | Emergency (ER) | payer MEDICARE, BC ==
[2018-06-16 07:33] VITALS: BP 159/80; PULSE 90; RESP 18; TEMP 97.5
--- NOTE | 2018-06-16 07:50 | ED ---
General Adult HPI - General Chief complaint: Skin/Abscess/Foreign Body Stated complaint: rash on face, back and left arm Time Seen by Provider: 06/16/18 07:38 Source: patient Mode of arrival: ambulatory Limitations: no limitations - History of Present Illness Initial comments: Dictation was produced using [employer] dictation software. please excuse any grammatical, word or spelling errors. Chief Complaint: 82-year-old female past medical history of DVT, blood disorder, thyroid disease presents with left chest rash. History of Present Illness: Patient is 82-year-old female she states she was working in the garden. Every spring time almost every year patient develops this similar rash. She came to the emergency department today because her rash was getting worse. Started yesterday after she was in the guarding. Patient states that it initially started off as read. She tried putting some zinc oxide. She noticed that there was some blister formation. Patient has seen a geologic technician for this in the past and no intervention was pursued. She denies any constitutional symptoms. Denies any pain at the rash. Patient denies any dermatologic conditions. The ROS documented in this emergency department record has been reviewed and confirmed by me. Those systems with pertinent positive or negative responses have been documented in the HPI. All other systems are other negative and/or noncontributory. PHYSICAL EXAM: General Impression: Alert and oriented x3, not in acute distress HEENT: Normocephalic atraumatic, extra-ocular movements intact, pupils equal and reactive to light bilaterally, mucous membranes moist. Cardiovascular: Heart regular rate and rhythm, S1&S2 audible, no murmurs, rubs or gallops Chest: Lungs clear to auscultation bilaterally, no rhonchi, no wheeze, no rales Abdomen: Bowel sounds present, abdomen soft, non-tender, non-distended, no organomegaly Musculoskeletal: Pulses present and equal in all extremities, no peripheral edema Motor: no focal deficits noted Neurological: CN II-XII grossly intact, no focal motor or sensory deficits noted Skin: Erythematous, nonscaly rash with flaccid blister formation. Psych: Normal affect and mood ED course: 82-year-old female presents with chief complaint of rash. Vital signs upon arrival are within acceptable limits. Patient is seen geologic technician for this rash in the past. She states it occurs every spring. She denies any changes in medications. Denies any exposures. Patient denies any poison ansley in her garden or poison ansley exposure. It is unclear what this rash is, however at this point rash is not suggestive of acute emergent rash requiring any acute intervention. Patient told to wash the area gently with soap and water. Patient given Medrol Dosepak and referral to geologic technician. - Related Data Home Medications Medication Instructions Recorded Confirmed Folic Acid 0.4 mg PO DAILY 05/14/15 08/08/16 Multivitamins, Thera [Multivitamin 1 tab PO DAILY 05/14/15 08/08/16 (formulary)] Cyanocobalamin [Vitamin B-12 1,000 mcg SQ QMONTH 08/04/16 08/08/16 Injection] Loperamide HCl [Imodium A-D] 2 mg PO DAILY PRN 08/04/16 08/08/16 Omeprazole [PriLOSEC] 20 mg PO AC-BRKFST 08/04/16 08/08/16 Potassium Magnesium 1 tab PO DAILY 08/04/16 08/08/16 Propylene Glycol [Systane Balance] 1 - 2 drop BOTH EYES QID PRN 08/04/16 08/08/16 Selenium 200 mcg PO DAILY 08/04/16 08/08/16 prednisoLONE ACETATE 1% OPHTH 1 drops LEFT EYE Q48H 08/04/16 08/08/16 [Pred Forte 1%] Previous Rx's Medication Instructions Recorded Calcium Carbonate [Tums] 500 mg PO BID 08/10/16 HYDROcodone/APAP 5-325MG [[place] 1 each PO Q4HR PRN #30 tab 08/10/16 5-325] Loperamide [Imodium] 4 mg PO DAILY PRN cap 08/10/16 methylPREDNISolone [Medrol Dose 4 mg PO DIRECTED #1 pack 06/16/18 Pack] Allergies Allergy/AdvReac Type Severity Reaction Status Date / Time calcitriol [From Rocaltrol] Allergy Rash/Hives Verified 06/16/18 07:27 pneumococcal 23-valent Allergy Swelling Verified 06/16/18 07:27 polysacchari [From Pneumovax 23] aspirin AdvReac Nausea & Verified 06/16/18 07:27 Vomiting clopidogrel [From Plavix] AdvReac Nausea & Verified 06/16/18 07:27 Vomiting codeine AdvReac Nausea & Verified 06/16/18 07:27 Vomiting latex AdvReac Rash/Hives Verified 06/16/18 07:27 propoxyphene HCl AdvReac Unknown Verified 06/16/18 07:27 [From Darvon] Sulfa (Sulfonamide AdvReac Nausea & Verified 06/16/18 07:27 Antibiotics) Vomiting blood thinners AdvReac Nausea & Uncoded 06/16/18 07:27 Vomiting, OVER THINNED BLOOD SEVERELY Review of Systems ROS Statement: Those systems with pertinent positive or pertinent negative responses have been documented in the HPI. ROS Other: All systems not noted in ROS Statement are negative. Past Medical History Past Medical History: Blood Disorder, Deep Vein Thrombosis (DVT), Eye Disorder, GERD/Reflux, Thyroid Disorder Additional Past Medical History / Comment(s): History of recurrent DVTs, possible hypercoagulable state nontender the patient has been told to have a pins position for a blood clotting disorder, chronic pernicious anemia, cystocele, hemorrhoids, abdominal wall hernia, thyroid nodules, osteoporosis, GERD, suspected Graves' disease History of Any Multi-Drug Resistant Organisms: None Reported Past Surgical History: Cholecystectomy, Hysterectomy Additional Past Surgical History / Comment(s): Colonoscopy; EGD; Cataracts thyroidectomy Past Anesthesia/Blood Transfusion Reactions: No Reported Reaction Past Psychological History: No Psychological Hx Reported Smoking Status: Never smoker Past Alcohol Use History: None Reported Past Drug Use History: None Reported - Past Family History Mother Family Medical History: No Reported History General Exam Limitations: no limitations Course Vital Signs 06/16/18 07:27 Temperature 97.5 F L Pulse Rate 90 Respiratory 18 Rate Blood Pressure 159/80 O2 Sat by Pulse 98 Oximetry Disposition Clinical Impression: Rash Disposition: HOME SELF-CARE Instructions (If sedation given, give patient instructions): Acute Rash (ED) Prescriptions: methylPREDNISolone [Medrol Dose Pack] 4 mg PO DIRECTED #1 pack Is patient prescribed a controlled substance at d/c from ED?: No Referrals: Lobito Miguel MD [Primary Care Provider] - 1-2 days Time of Disposition: 07:50
--- NOTE | 2018-06-16 07:52 | ED ---
Disposition Clinical Impression: Rash Disposition: HOME SELF-CARE Instructions (If sedation given, give patient instructions): Acute Rash (ED) Prescriptions: methylPREDNISolone [Medrol Dose Pack] 4 mg PO DIRECTED #1 pack Is patient prescribed a controlled substance at d/c from ED?: No Referrals: Lobito Miguel MD [Primary Care Provider] - 1-2 days Richar Alexander MD [STAFF PHYSICIAN] - 1-2 days Time of Disposition: 07:52
== END 2018-06-16 07:59 | disposition home or self-care (01) ==
LOC: EC 07:17
DX: R21 Rash and other nonspecific skin eruption (principal); K21.9 Gastro-esophageal reflux disease without esophagitis; Z79.899 Other long term (current) drug therapy; Z88.8 Allergy status to other drugs, medicaments and biological substances; Z88.6 Allergy status to analgesic agent; Z88.7 Allergy status to serum and vaccine; Z88.5 Allergy status to narcotic agent; Z91.040 Latex allergy status; Z88.2 Allergy status to sulfonamides; Z86.718 Personal history of other venous thrombosis and embolism
CPT/HCPCS: 99282

== ENCOUNTER → 2018-07-16 | Outpatient (CLI) | payer MEDICARE, BC ==
[2018-07-16 19:04] LABS: Thyroglobulin <0.20 ng/mL (1.60-59.90)
== END | disposition home or self-care (01) ==
LOC: LABWHC1 10:42
PROVIDERS: ATTEND Internal Medicine Endocrinology, Diabetes & Metabolism
DX: C73 Malignant neoplasm of thyroid gland (principal)
CPT/HCPCS: 36415; 84432; 84443; 86800

== ENCOUNTER → 2018-07-30 | Outpatient (CLI) | payer MEDICARE, BC ==
[2018-07-30 15:23] LABS: Amorphous Sediment,Urine Rare /hpf; Appearance,Urine Cloudy (Clear); Bacteria,Urine Occasional /hpf; Bilirubin,Urine Negative (Negative); Blood,Urine Moderate (Negative); Color,Urine Light Yellow; Glucose,Urine (UA) Negative (Negative); Ketones,Urine Negative (Negative); Leukocyte Esterase,Urine Large (Negative); Mucus,Urine Rare /hpf; Nitrite,Urine Negative (Negative); PH, Urine 5.5 (5.0-8.0); Protein,Urine 1+ (Negative); RBC,Urine 6 /hpf (0-5); Specific Gravity,Urine 1.005 (1.001-1.035); Squamous Epithelial Cell,Urine 16 /hpf (0-4); Urobilinogen,Urine <2.0 mg/dL (<2.0); WBC,Urine 27 /hpf (0-5)
[2018-07-30 15:41] LABS: Basophils % (A) 0 %; Eosinophils % (A) 1 %; HCT 39.1 % (34.0-46.0); HGB 12.2 gm/dL (11.4-16.0); Lymphocytes # (A) 1.2 k/uL (1.0-4.8); Lymphocytes % (A) 17 %; MCH 30.9 pg (25.0-35.0); MCHC 31.2 g/dL (31.0-37.0); MCV 99.1 fL (80.0-100.0); Macrocytosis Slight; Mean Platelet Volume 6.6; Monocytes # (A) 0.4 k/uL (0-1.0); Monocytes % (A) 5 %; Neutrophils # (A) 5.5 k/uL (1.3-7.7); Neutrophils % (A) 75 %; Platelet Count 268 k/uL (150-450); RBC 3.94 m/uL (3.80-5.40); RDW 15.6 % (11.5-15.5); WBC 7.3 k/uL (3.8-10.6)
[2018-07-30 18:24] LABS: Iron Saturation 39.37 (12.00-45.00)
[2018-07-30 18:32] LABS: Vitamin D 25 Hydroxy 37.3 ng/mL (30.0-100.0)
[2018-07-30 19:01] LABS: African American GFR (CKD) 43.9 (60.0-200.0); Albumin 3.8 g/dL (3.80-4.90); Anion Gap 7.9 mmol/L (4.00-12.00); BUN/Creat Ratio 12.31 Ratio (12.00-20.00); Calcium 7.4 mg/dL (8.7-10.3); Carbon Dioxide 25.1 mmol/L (21.6-31.8); Magnesium 1.6 mg/dL (1.5-2.4); Phosphorus 4.6 mg/dL (2.4-5.1); Potassium 4.2 mmol/L (3.5-5.5); Uric Acid 5.6 mg/dL (2.9-7.7)
[2018-07-30 21:43] LABS: Parathyroid Hormone Intact 35.1 pg/mL (14.0-72.0)
== END | disposition home or self-care (01) ==
LOC: LABWHC1 14:50
PROVIDERS: ATTEND Internal Medicine Nephrology
DX: E83.10 Disorder of iron metabolism, unspecified (principal); E55.9 Vitamin D deficiency, unspecified; E21.3 Hyperparathyroidism, unspecified; M10.9 Gout, unspecified; N39.0 Urinary tract infection, site not specified; N18.3 Chronic kidney disease, stage 3 (moderate)
CPT/HCPCS: 36415; 80048; 81001; 82040; 82306; 82728; 83540; 83550; 83735; 83970; 84100; 84550; 85025

== ENCOUNTER → 2018-09-20 | Outpatient (CLI) | payer MEDICARE, BC ==
--- NOTE | 2018-09-20 13:07 | CT ---
EXAMINATION TYPE: CT abdomen wo con DATE OF EXAM: 09/20/2018 COMPARISON: Ultrasound 09/04/2018 HISTORY: Per patient Abnormal US CT DLP: 159.3 mGycm Automated exposure control for dose reduction was used. TECHNIQUE: Helical acquisition of images was performed from the lung bases through the top of iliac crest to include entire abdomen. CONTRAST: Performed without Oral Contrast and without IV contrast. FINDINGS: LUNG BASES: Large fixed hiatal hernia.Lung bases clear. LIVER/GB: No significant abnormality is appreciated. O cystectomy 6 clips seen. PANCREAS: No significant abnormality is seen. SPLEEN: No significant abnormality is seen. ADRENALS: No significant abnormality is seen. KIDNEYS: Renal atrophic changes noted right greater than left. Nonobstructing nephrolithiasis right k idney. Indeterminate hypoattenuating renal lesion midpole left kidney measures 1 cm. Lack of contrast limits evaluation. No hydronephrosis. BOWEL: Fecal stasis in the region of the cecum unchanged from prior study. Remaining bowel is of nor mal caliber. LYMPH NODES: No significant abnormality is appreciated. OSSEOUS STRUCTURES: No significant abnormality is seen. FREE AIR: No free air is visualized. OTHER: Midline ventral hernia just below the epigastric region contains a short segment of the colon without obstructive change noted. IMPRESSION: 1. Nonspecific hypoattenuating lesion mid pole left kidney could reflect a small cyst. Lack of contra st limits evaluation. Continued follow-up advised. 2. Large fixed hiatal hernia. 3. Midline ventral hernia contains a segment of the colon without obstructive change.
== END | disposition home or self-care (01) ==
LOC: RADCTMAIN 12:27
PROVIDERS: ATTEND Internal Medicine Nephrology
DX: K44.9 Diaphragmatic hernia without obstruction or gangrene (principal); K43.9 Ventral hernia without obstruction or gangrene
CPT/HCPCS: 74150

== ENCOUNTER → 2019-01-08 | Outpatient (CLI) | payer MEDICARE, BC | END | disposition home or self-care (01) | LOC: LABWHC1 10:41 | PROVIDERS: ATTEND Internal Medicine Endocrinology, Diabetes & Metabolism | DX: C73 Malignant neoplasm of thyroid gland (principal) | CPT/HCPCS: 36415; 84432; 84443; 86800 ==

== ENCOUNTER → 2019-01-27 | Outpatient (CLI) | payer MEDICARE, BC ==
[2019-01-27 12:52] LABS: Basophils # (A) 0.1 k/uL (0-0.2); Basophils % (A) 2 %; Eosinophils # (A) 0.1 k/uL (0-0.7); Eosinophils % (A) 1 %; HGB 13.3 gm/dL (11.4-16.0); Lymphocytes # (A) 1.4 k/uL (1.0-4.8); Lymphocytes % (A) 21 %; MCH 31.9 pg (25.0-35.0); MCHC 32.4 g/dL (31.0-37.0); MCV 98.3 fL (80.0-100.0); Monocytes # (A) 0.4 k/uL (0-1.0); Monocytes % (A) 6 %; Neutrophils # (A) 4.7 k/uL (1.3-7.7); Neutrophils % (A) 69 %; Platelet Count 330 k/uL (150-450); RBC 4.17 m/uL (3.80-5.40); RDW 13.9 % (11.5-15.5); WBC 6.8 k/uL (3.8-10.6)
[2019-01-27 13:35] LABS: Appearance,Urine Cloudy (Clear); Bacteria,Urine Few /hpf; Bilirubin,Urine Negative (Negative); Blood,Urine Negative (Negative); Color,Urine Light Yellow; Glucose,Urine (UA) Negative (Negative); Ketones,Urine Negative (Negative); Leukocyte Esterase,Urine Large (Negative); Mucus,Urine Occasional /hpf; Nitrite,Urine Negative (Negative); PH, Urine 5.5 (5.0-8.0); Protein,Urine Negative (Negative); RBC,Urine 6 /hpf (0-5); Specific Gravity,Urine 1.006 (1.001-1.035); Squamous Epithelial Cell,Urine 4 /hpf (0-4); Urobilinogen,Urine <2.0 mg/dL (<2.0); WBC,Urine 115 /hpf (0-5)
[2019-01-27 18:52] LABS: % Iron Saturation 26.96 (12.00-45.00); African American GFR (CKD) 43.6 (60.0-200.0); Albumin 3.9 g/dL (3.80-4.90); BUN/Creat Ratio 13.85 Ratio (12.00-20.00); Calcium 8.2 mg/dL (8.7-10.3); Magnesium 1.6 mg/dL (1.5-2.4); Non-African American GFR(CKD) 37.6 (60.0-200.0); Potassium 4.4 mmol/L (3.5-5.5); Uric Acid 5.3 mg/dL (2.9-7.7)
[2019-01-27 19:00] LABS: Ferritin 98.8 ng/mL (10.0-291.0)
== END ==
LOC: LABWHC1 11:32
PROVIDERS: ATTEND Internal Medicine Nephrology
DX: N39.0 Urinary tract infection, site not specified (principal); N18.3 Chronic kidney disease, stage 3 (moderate); E55.9 Vitamin D deficiency, unspecified; N25.81 Secondary hyperparathyroidism of renal origin; M10.9 Gout, unspecified; D63.1 Anemia in chronic kidney disease
CPT/HCPCS: 36415; 80048; 81001; 82040; 82728; 83540; 83550; 83735; 83970; 84100; 84550; 85025

== ENCOUNTER → 2019-01-29 | Outpatient (CLI) | payer MEDICARE, BC ==
--- NOTE | 2019-01-31 11:46 | MM ---
Reason for exam: screening (asymptomatic). Last mammogram was performed 1 year and 1 month ago. History: Patient is postmenopausal. Physical Findings: A clinical breast exam by your physician is recommended on an annual basis and results should be correlated with mammographic findings. MG Screening Mammo w CAD Bilateral CC and MLO view(s) were taken. Prior study comparison: December 25, 2017, bilateral MG screening mammo w CAD. October 03, 2016, bilateral MG screening mammo w CAD. The breast tissue is heterogeneously dense. This may lower the sensitivity of mammography. There is no discrete abnormality. No significant changes when compared with prior studies. ASSESSMENT: Negative, BI-RAD 1 RECOMMENDATION: Routine screening mammogram of both breasts in 1 year.
== END | disposition home or self-care (01) ==
LOC: RADMAMWWP 12:46
PROVIDERS: ATTEND Obstetrics & Gynecology
DX: Z12.31 Encounter for screening mammogram for malignant neoplasm of breast (principal)
CPT/HCPCS: 77067

== ENCOUNTER → 2019-03-17 | Outpatient (CLI) | payer MEDICARE, BC ==
--- NOTE | 2019-03-17 13:01 | CT ---
EXAMINATION TYPE: CT abdomen wo con DATE OF EXAM: 03/17/2019 HISTORY: Chronic kidney disease per order. CT DLP: 157 mGycm. Automated Exposure Control for Dose Reduction was Utilized. TECHNIQUE: CT scan of the abdomen is performed with oral but without IV contrast. COMPARISON: CT abdomen September 20, [address] from 2009 FINDINGS: Within the limitations of a non-contrast study, the following observations are made. LUNG BASES: Elevated right hemidiaphragm redemonstrated. Patchy bibasilar linear scarring and/or atel ectasis. Coronary artery calcification again. Calcification at level of aortic valve redemonstrated. LIVER/GB: Cholecystectomy clips are again seen. PANCREAS: No significant abnormality is seen. SPLEEN: No significant abnormality is seen. ADRENALS: No significant abnormality is seen. KIDNEYS: Cortical atrophy in both kidneys greater in the right kidney versus left kidney which is asy mmetrically slightly smaller in size. Single 3 mm calculus right kidney midpole level coronal image 6 1 redemonstrated. Nearly 1 cm hypodense lesion probable cyst posteriorly midpole of the left kidney a xial image 31 is stable. There is stable subcentimeter hyperdense focus posteriorly lower pole left k idney coronal image 57 favoring small proteinaceous cyst. BOWEL: Persistent moderate to large size hiatal hernia not significantly changed from most recent CT. Oral contrast only reaches distal jejunal level in the left abdomen. Evaluation of distal bowel as d iscussed suboptimal. There is persistent fecal filled dilated bowel loop right lower quadrant at site of sutures with nondilated ball attached to this level right aspect on current study axial image 45 anteriorly. Another anastomosis right lower aspect coronal image 38 noted. Left-sided colon and left paracolic gutter not identified. This is medially displaced. There is persistent upper abdominal midl ine ventral wall hernia containing bowel loop axial image 26 not significantly changed from prior. Be low this there is focal eventration and possible additional hernia mid to lower abdomen extending int o the left lower quadrant anterior abdominal wall containing nondilated small bowel loop only partial ly imaged. Some scattered air-fluid levels in anterior bowel loops. GENITAL ORGANS: No gross abnormality seen. LYMPH NODES: No greater than 1cm abdominal or pelvic lymph nodes are appreciated. OSSEOUS STRUCTURES: Osseous structures are demineralized. Underlying scoliosis again seen. Multilevel spurring with disc space narrowing throughout the spine is redemonstrated. Endplate sclerotic change s lower thoracic spine again seen. OTHER: No significant additional abnormality is seen. IMPRESSION: 1. Evidence of chronic medical renal disease with asymmetric increased findings the right kidney. No suspicious new or enlarging renal lesions. 2. Persistent nonspecific bowel gas pattern with severe fecal stasis at level of surgery right lower quadrant. No significant change from prior. Ventral wall hernias containing bowel redemonstrated with out obstruction.
== END | disposition home or self-care (01) ==
LOC: RADCTMAIN 11:50
PROVIDERS: ATTEND Nurse Practitioner Family
DX: N18.9 Chronic kidney disease, unspecified (principal); K43.9 Ventral hernia without obstruction or gangrene; R19.5 Other fecal abnormalities
CPT/HCPCS: 74150; Q9967

== ENCOUNTER → 2019-07-04 | Outpatient (CLI) | payer MEDICARE, BC | END | disposition home or self-care (01) | LOC: LABWHC1 10:38 | PROVIDERS: ATTEND Internal Medicine Endocrinology, Diabetes & Metabolism | DX: C73 Malignant neoplasm of thyroid gland (principal) | CPT/HCPCS: 36415; 84432; 84443; 86800 ==

== ENCOUNTER → 2019-08-14 | Outpatient (CLI) | payer MEDICARE, BC ==
--- NOTE | 2019-08-14 20:41 | US ---
EXAMINATION TYPE: US thyroid st tissue head/neck DATE OF EXAM: 08/14/2019 COMPARISON: NONE CLINICAL HISTORY: 83-year-old female C73 malignant neoplasm thyroid gland. Total thyroidectomy. TECHNIQUE: Multiple sonographic images of the thyroidectomy bed were obtained. FINDINGS: GLAND SIZE: Right Lobe: Surgically absent Left Lobe: Surgically absent ISTHMUS: Surgically absent Bilateral neck scanned, no evidence of lymphadenopathy. IMPRESSION: Status post total thyroidectomy. No suspicious residual tissue or suspicious nodules are identified.
== END | disposition home or self-care (01) ==
LOC: RADUSWWP 16:13
PROVIDERS: ATTEND Internal Medicine Endocrinology, Diabetes & Metabolism
DX: C73 Malignant neoplasm of thyroid gland (principal)
CPT/HCPCS: 76536

== ENCOUNTER → 2019-09-23 | Outpatient (CLI) | payer MEDICARE, BC ==
[2019-09-23 10:51] LABS: Basophils % (A) 0 %; Eosinophils # (A) 0.1 k/uL (0-0.7); Eosinophils % (A) 1 %; HCT 43.5 % (34.0-46.0); Lymphocytes # (A) 1.4 k/uL (1.0-4.8); Lymphocytes % (A) 14 %; MCH 31.3 pg (25.0-35.0); MCHC 32.3 g/dL (31.0-37.0); Mean Platelet Volume 6.9; Monocytes # (A) 0.5 k/uL (0-1.0); Monocytes % (A) 5 %; Neutrophils % (A) 79 %; Platelet Count 323 k/uL (150-450); RBC 4.49 m/uL (3.80-5.40); RDW 14.2 % (11.5-15.5); WBC 10.1 k/uL (3.8-10.6)
[2019-09-23 11:37] LABS: Appearance,Urine Cloudy (Clear); Bacteria,Urine Many /hpf; Bilirubin,Urine Negative (Negative); Blood,Urine Trace (Negative); Color,Urine Light Yellow; Glucose,Urine (UA) Negative (Negative); Ketones,Urine Negative (Negative); Leukocyte Esterase,Urine Large (Negative); Mucus,Urine Rare /hpf; Nitrite,Urine Negative (Negative); Protein,Urine Negative (Negative); RBC,Urine 6 /hpf (0-5); Specific Gravity,Urine 1.006 (1.001-1.035); Squamous Epithelial Cell,Urine 5 /hpf (0-4); Urobilinogen,Urine <2.0 mg/dL (<2.0); WBC,Urine >182 /hpf (0-5)
[2019-09-23 16:40] LABS: % Iron Saturation 27.56 (12.00-45.00); African American GFR (CKD) 48.1 (60.0-200.0); Anion Gap 9.3 mmol/L (4.00-12.00); BUN/Creat Ratio 12.5 Ratio (12.00-20.00); Calcium 8.5 mg/dL (8.7-10.3); Carbon Dioxide 29.7 mmol/L (21.6-31.8); Magnesium 1.7 mg/dL (1.5-2.4); Non-African American GFR(CKD) 41.5 (60.0-200.0); Phosphorus 4.6 mg/dL (2.4-5.1); Uric Acid 5.3 mg/dL (2.9-7.7)
[2019-09-23 16:49] LABS: Ferritin 75.4 ng/mL (10.0-291.0)
== END | disposition home or self-care (01) ==
LOC: LABWHC1 09:55
PROVIDERS: ATTEND Nurse Practitioner Family
DX: N18.3 Chronic kidney disease, stage 3 (moderate) (principal); D63.1 Anemia in chronic kidney disease; N39.0 Urinary tract infection, site not specified; M10.9 Gout, unspecified; N25.81 Secondary hyperparathyroidism of renal origin; E55.9 Vitamin D deficiency, unspecified
CPT/HCPCS: 36415; 80048; 81001; 82040; 82728; 83540; 83550; 83735; 83970; 84100; 84550; 85025

== ENCOUNTER → 2019-10-09 | Outpatient (CLI) | payer MEDICARE, BC | END | disposition home or self-care (01) | LOC: LABWHC1 10:22 | PROVIDERS: ATTEND Internal Medicine Nephrology | DX: R82.81 Pyuria (principal) | CPT/HCPCS: 87086 ==

== ENCOUNTER 2020-04-28 11:47 | Inpatient (IN) | payer MEDICARE, BC ==
[2020-04-28] MEDS ORDERED: HYDROmorphone 0.5 MG/0.5 ML SYRINGE IVP STA (12:32)
--- NOTE | 2020-04-28 12:36 | ED ---
General Adult HPI - General Chief complaint: Fall Stated complaint: Fall, Poss R Hip Injury Time Seen by Provider: 04/28/20 11:50 Source: patient, EMS, RN notes reviewed, old records reviewed Mode of arrival: EMS Limitations: physical limitation - History of Present Illness Initial comments: This is a 84-year-old female who presents emergency Department complaining of right hip pain. Patient states she slipped and fell at [employer] and now has lateral right hip pain. Patient states she is unable to move the right hip and she was unable to stand at the scene. Patient denies hitting her head patient denies any neck pain. Patient denies any other symptoms pain. Patient denies back pain patient denies chest pain patient denies abdominal pain. Patient denies any recent fever chills or cough per patient denies any chest pain palpitations shortness of breath. Patient denies headache - Related Data Home Medications Medication Instructions Recorded Confirmed Multivitamins, Thera [Multivitamin 1 tab PO DAILY 05/14/15 04/28/20 (formulary)] Cyanocobalamin [Vitamin B-12 1,000 mcg SQ QMONTH 08/04/16 04/28/20 Injection] Omeprazole [PriLOSEC] 20 mg PO DAILY 08/04/16 04/28/20 Ascorbic Acid [Vitamin C] 1,000 mg PO DAILY 04/28/20 04/28/20 Levothyroxine Sodium [Synthroid] 75 mcg PO DAILY 04/28/20 04/28/20 Allergies Allergy/AdvReac Type Severity Reaction Status Date / Time calcitriol [From Rocaltrol] Allergy Rash/Hives Verified 04/28/20 17:02 aspirin AdvReac Nausea & Verified 04/28/20 17:02 Vomiting codeine AdvReac Nausea & Verified 04/28/20 17:02 Vomiting latex AdvReac Rash/Hives Verified 04/28/20 17:02 propoxyphene HCl AdvReac Unknown Verified 04/28/20 17:02 [From Darvon] Sulfa (Sulfonamide AdvReac Nausea & Verified 04/28/20 17:02 Antibiotics) Vomiting Review of Systems ROS Statement: Those systems with pertinent positive or pertinent negative responses have been documented in the HPI. ROS Other: All systems not noted in ROS Statement are negative. Past Medical History Past Medical History: Blood Disorder, Deep Vein Thrombosis (DVT), Eye Disorder, GERD/Reflux, Thyroid Disorder Additional Past Medical History / Comment(s): History of recurrent DVTs, possible hypercoagulable state nontender the patient has been told to have a pins position for a blood clotting disorder, chronic pernicious anemia, cystocele, hemorrhoids, abdominal wall hernia, thyroid nodules, osteoporosis, GERD, suspected Graves' disease, History of Any Multi-Drug Resistant Organisms: None Reported Past Surgical History: Cholecystectomy, Hysterectomy Additional Past Surgical History / Comment(s): Colonoscopy; EGD; Cataracts thyroidectomy, Past Anesthesia/Blood Transfusion Reactions: No Reported Reaction Past Psychological History: No Psychological Hx Reported Smoking Status: Never smoker Past Alcohol Use History: None Reported Past Drug Use History: None Reported - Past Family History Mother Family Medical History: No Reported History General Exam - General Exam Comments Initial Comments: GENERAL: Patient is well-developed and well-nourished. Patient is nontoxic and well- hydrated and is in mild distress. ENT: Neck is soft and supple. No significant lymphadenopathy is noted. Oropharynx is clear. Moist mucous membranes. Neck has full range of motion without eliciting any pain. EYES: The sclera were anicteric and conjunctiva were pink and moist. Extraocular movements were intact and pupils were equal round and reactive to light. Eyelids were unremarkable. PULMONARY: Unlabored respirations. Good breath sounds bilaterally. No audible rales rhonchi or wheezing was noted. CARDIOVASCULAR: There is a regular rate and rhythm without any murmurs gallops or rubs. Patient has good DP pulses on the right. ABDOMEN: Soft and nontender with normal bowel sounds. SKIN: Skin is clear with no lesions or rashes and otherwise unremarkable. NEUROLOGIC: Patient is alert and oriented x3. Cranial nerves II through XII are grossly intact. Motor and sensory are also intact. Normal speech, volume and content. Symmetrical smile. MUSCULOSKELETAL: Patient's lateral right hip tenderness patient has pain in the right hip with any flexion or external rotation. LYMPHATICS: No significant lymphadenopathy is noted PSYCHIATRIC: Normal psychiatric evaluation. Limitations: physical limitation Course Vital Signs 04/28/20 04/28/20 04/28/20 11:49 14:33 17:13 Temperature 98.7 F 97.7 F 97.8 F Pulse Rate 83 85 86 Respiratory 16 18 18 Rate Blood Pressure 130/70 125/71 144/78 O2 Sat by Pulse 95 100 96 Oximetry 04/28/20 19:33 Temperature 97.7 F Pulse Rate 87 Respiratory 18 Rate Blood Pressure 143/81 O2 Sat by Pulse 96 Oximetry Medical Decision Making - Medical Decision Making EKG shows a normal sinus rhythm at 82 bpm FL interval is 208 bpm QRS is 60 QT interval 386 QTC is 450. Patient's EKG shows no ST segment elevation or depression I spoke with [facility] assistant he agreed to admit the patient admitted the patient I wrote admitting orders. I consult to Dr. Russell and - Lab Data Result diagrams: 04/28/20 17:37 04/28/20 17:37 Disposition Clinical Impression: Fall, Closed right hip fracture Disposition: [facility] Time of Disposition: 20:30
--- NOTE | 2020-04-28 14:16 | XR ---
EXAMINATION TYPE: AP view pelvis and 2 views right hip DATE OF EXAM: 04/28/2020 COMPARISON: NONE HISTORY: 84-year-old female fall, trauma, right hip pain FINDINGS: There is some bony irregularity along the superior aspect of the basicervical femoral neck and possib le lucency within the greater trochanter. No displaced fracture is seen. Mild degenerative change of the right hip. Some retained medication tablets noted within the right mid abdomen and pelvis. There is some soft tissue swelling along the right hip. Slight irregularity of the arcuate lines of the rig ht sacrum. IMPRESSION: 1. Unable to exclude a subtle nondisplaced basicervical femoral neck or incomplete intertrochanteric fracture of the right hip. Underlying mild degenerative change of the right hip. 2. Slight irregularity of the arcuate lines of the right side of the sacrum. Sacral insufficiency fra cture also difficult to exclude.
[2020-04-28] MEDS ORDERED: ONDANSETRON 4 MG/2 ML VIAL IVP STA (15:25)
--- NOTE | 2020-04-28 15:27 | CT ---
EXAMINATION TYPE: CT hip RT wo con DATE OF EXAM: 04/28/2020 COMPARISON: X-ray 04/28/2020 HISTORY: Right sided hip pain post fall today. CT DLP: 358.3 mGycm Automated exposure control for dose reduction was used. FINDINGS: There is a mildly displaced fracture involving the greater trochanter extending into the femoral neck . Pubic rami are intact. Arthropathy and hypertrophic change of the AC joint. Degenerative change low er lumbar spine. Suggestion of a pessary. Bladder distends normally and there is an anterior abdominal wall hernia. Ma rked dilation of the right colon incidentally noted. IMPRESSION: THERE IS A MINIMALLY DISPLACED FRACTURE INVOLVING THE RIGHT GREATER TROCHANTER EXTENDING INTO THE FEM ORAL NECK
[2020-04-28] MEDS ORDERED: SODIUM CHLORIDE 0.9% 1,000 ML IV ONE (16:07)
[2020-04-28] MEDS ORDERED: MECLIZINE 25 MG TAB PO PRN (16:09)
[2020-04-28 18:01] LABS: Basophils % (A) 0 %; Eosinophils % (A) 0 %; HGB 13.2 gm/dL (11.4-16.0); Lymphocytes # (A) 0.6 k/uL (1.0-4.8); Lymphocytes % (A) 4 %; MCH 31.1 pg (25.0-35.0); MCHC 32.9 g/dL (31.0-37.0); MCV 94.6 fL (80.0-100.0); Mean Platelet Volume 6.8; Monocytes # (A) 0.3 k/uL (0-1.0); Monocytes % (A) 2 %; Neutrophils # (A) 11.9 k/uL (1.3-7.7); Neutrophils % (A) 93 %; Platelet Count 277 k/uL (150-450); RBC 4.23 m/uL (3.80-5.40); RDW 13.6 % (11.5-15.5); WBC 12.9 k/uL (3.8-10.6)
[2020-04-28 18:11] LABS: Albumin 3.5 g/dL (3.5-5.0); Calcium 8.5 mg/dL (8.4-10.2); Potassium 4.2 mmol/L (3.5-5.1); Total Bilirubin 0.6 mg/dL (0.2-1.3); Total Protein 6.2 g/dL (6.3-8.2)
--- NOTE | 2020-04-28 18:11 | P.HPOR ---
History of Present Illness H&P Date: 04/28/20 This patient is an 84-year-old female with past medical history of GERD and DVT that presented to [facility] emergency department today via EMS with complaints of right hip pain following a fall. The patient states she was at [facility] with her when she slipped and fell landing directly onto the right hip. She was unable to get up or bear any weight on the right lower extremity due to pain. An EMS was called and the patient was transported to [facility] emergency department. X-rays in the emergency department revealed a possible right hip fracture. Computed tomography scan of the right hip revealed a right very minimally displaced basicervical femoral neck fracture. The patient was admitted under the care of Dr. Yeh with a consult placed to Dr. Miguel for surgical clearance. At the time of my exam, the patient's is bedside. Patient states her pain is currently well-controlled. She denies additional injuries or areas of pain. Patient states she is ambulatory at baseline and does not use a cane or walker. Per patient, she cannot remember being diagnosed with a DVT. She states she is not on blood thinners. She states she did not hit her head when she fell. She denies back pain. She denies numbness or tingling of the right lower extremity. Patient has not eaten today and does feel slightly nauseated. Otherwise, she states she feels well. She denies chest pain, shortness breath, vomiting, fevers, chills. She has no additional complaints at this time. Her vital signs are stable. Past Medical History Past Medical History: Blood Disorder, Deep Vein Thrombosis (DVT), Eye Disorder, GERD/Reflux, Thyroid Disorder Additional Past Medical History / Comment(s): History of recurrent DVTs, possible hypercoagulable state nontender the patient has been told to have a pins position for a blood clotting disorder, chronic pernicious anemia, cystocele, hemorrhoids, abdominal wall hernia, thyroid nodules, osteoporosis, GERD, suspected Graves' disease, History of Any Multi-Drug Resistant Organisms: None Reported Past Surgical History: Cholecystectomy, Hysterectomy Additional Past Surgical History / Comment(s): Colonoscopy; EGD; Cataracts thyroidectomy, Past Anesthesia/Blood Transfusion Reactions: No Reported Reaction Past Psychological History: No Psychological Hx Reported Smoking Status: Never smoker Past Alcohol Use History: None Reported Past Drug Use History: None Reported - Past Family History Mother Family Medical History: No Reported History Medications and Allergies Home Medications Medication Instructions Recorded Confirmed Type Multivitamins, Thera [Multivitamin 1 tab PO DAILY 05/14/15 04/28/20 History (formulary)] Cyanocobalamin [Vitamin B-12 1,000 mcg SQ QMONTH 08/04/16 04/28/20 History Injection] Omeprazole [PriLOSEC] 20 mg PO DAILY 08/04/16 04/28/20 History Ascorbic Acid [Vitamin C] 1,000 mg PO DAILY 04/28/20 04/28/20 History Levothyroxine Sodium [Synthroid] 75 mcg PO DAILY 04/28/20 04/28/20 History Allergies Allergy/AdvReac Type Severity Reaction Status Date / Time calcitriol [From Rocaltrol] Allergy Rash/Hives Verified 04/28/20 17:02 aspirin AdvReac Nausea & Verified 04/28/20 17:02 Vomiting codeine AdvReac Nausea & Verified 04/28/20 17:02 Vomiting latex AdvReac Rash/Hives Verified 04/28/20 17:02 propoxyphene HCl AdvReac Unknown Verified 04/28/20 17:02 [From Darvon] Sulfa (Sulfonamide AdvReac Nausea & Verified 04/28/20 17:02 Antibiotics) Vomiting Physical Examination On examination, the patient is lying in bed in no apparent distress. She is alert and oriented 3. Her is bedside. Her head appears normocephalic and atrauamtic. Her breathing appears nonlabored. On inspection of her bilateral upper extremities, there are no obvious deformities or signs of trauma. On inspection of the left lower extremity, there are no obvious deformities or signs of trauma. On inspection of the right lower extremity, there are no obvious deformities. There is diffuse pain on palpation of the right hip. Range of motion of the right hip is not tested at this time. There is no pain on palpation of the distal thigh, knee, lower leg, ankle, foot. Patient has good strength and range of motion of the right ankle. Calf is soft and nontender to palpation. Motor and sensory flexion are intact of the right lower extremity. Dorsalis pedis pulses easily palpated. Right lower extremity is warm and well-perfused with brisk capillary refill distally. Results Right hip computed tomography scan 04/28/20: Very minimally displaced fracture of the greater trochanter with extension into the femoral neck - Labs Result Diagrams: 04/28/20 17:37 Assessment and Plan Assessment: Minimally displaced femoral neck fracture Plan: - The clinical and imaging findings were discussed with the patient and her . The patient was discussed with Dr. Yeh. Recommend surgical fixation of the right hip fracture. We will plan for surgery tomorrow morning, pending medical clearance and consent. - Strict nonweightbearing on the right lower extremity. - Pain management as needed. - Dr. Miguel consulted for medical management and surgical clearance. - NPO diet at midnight.
[2020-04-28 18:20] LABS: Partial Thromboplastin Time 21.6 sec (22.0-30.0)
[2020-04-28] MEDS: HYDROmorphone 0.5 MG/0.5 ML SYRINGE IVP PRN ×2 (19:39→23:24)
[2020-04-29] MEDS: HYDROmorphone 0.5 MG/0.5 ML SYRINGE IVP PRN ×3 (04:22→20:57)
--- NOTE | 2020-04-29 07:35 | XR ---
EXAMINATION TYPE: XR chest 1V DATE OF EXAM: 04/29/2020 CLINICAL HISTORY: Presurgical study. Right hip fracture. TECHNIQUE: Single AP portable upright view of the chest is obtained. COMPARISON: Chest x-ray from November 23, 2019 FINDINGS: There are moderate chronic parenchymal changes bilaterally with interval progression from 2010 study. No suspicious focal airspace opacity, pleural effusion, or pneumothorax seen bilaterally. Mild cardiomegaly with atherosclerotic thoracic aorta. Osseous structures are demineralized. Underly ing scoliotic curvature. Cholecystectomy clips noted. IMPRESSION: Cardiomegaly and moderate chronic parenchymal changes without acute pulmonary process
[2020-04-29] MEDS ORDERED: ONDANSETRON 4 MG/2 ML VIAL IVP PRN (07:57)
[2020-04-29] MEDS ORDERED: METOCLOPRAMIDE 5 MG/ML 2 ML VIAL IVP PRN (09:51)
--- NOTE | 2020-04-29 11:58 | HP ---
HISTORY AND PHYSICAL CHIEF COMPLAINT: Fall with pain in the right hip. HISTORY OF PRESENT ILLNESS: This is another admission for this 84-year-old white female. She was apparently shopping with her in a grocery store when she slipped and fell on the right hip. She did not strike her head and she was not rendered unconscious. She had no focal neurologic signs or symptoms before or after the event, chest pain, etc. She was brought to the emergency room where she was found to have a right hip fracture. REVIEW OF SYSTEMS: She has no headache, neurologic deficits, change in vision or hearing, chest pain, shortness of breath, abdominal pain. She does have nausea. She has had no melena, hematochezia, GI problems other than the large ventral hernia and a history of constipation. She has had no renal failure, hematuria, dysuria, frequency, etc. Payton catheter is in place. She is not diabetic. Past medical history, family history, and personal and social histories reveal that she cannot take ROCALTROL, WARFARIN, FLU VACCINE, PNEUMOVAX, CODEINE, ASPIRIN, or SULFA. She is allergic to LATEX. Current medications include: 1. Omeprazole 20 mg once a day. 2. Cyanocobalamin 1000 mcg once a month, subcutaneous. 3. Systane ophthalmic solution. 4. Synthroid 0.088 once a day. Past medical history, family history personal social history social histories are otherwise unremarkable. She has had hysterectomy and cholecystectomy. She does not smoke or drink. PHYSICAL EXAMINATION: Blood pressure is 128/80 with a pulse of 103, respirations 12, and she is afebrile. In general, she appeared to be slender, well developed, well nourished and well preserved for her age. Skin was dry and lymph nodes were not enlarged. Head, ears, eyes, nose, mouth and throat were unremarkable. Neck veins not distended. Carotids are normal. There are no bruits. Chest is clear. Cardiac exam demonstrates a grade 1 to 2 systolic murmur heard at the base of the left sternal border. There is S3 or S4. Abdomen is soft and nontender and there is a large ventral hernia. Extremities are normal. Neurologically, she is intact. She is admitted to the hospital with diagnoses: 1. Fracture of the right hip. 2. Hypothyroidism. 3. Ventral hernia. RECOMMENDATIONS: None. She is cleared for surgery. MMODL / IJN: [id number] /
[2020-04-29] MEDS ORDERED: IV FLUID CONTINUATION 1,000 ML IV ONE (13:33)
[2020-04-29] MEDS ORDERED: PHENYLEPHRINE-0.9% NACL SYG 1,000 MCG/10 ML SYRINGE ONE (14:59)
[2020-04-29] MEDS ORDERED: fentaNYL (PF) 50 MCG/ML 2 ML AMP ONE (14:59)
[2020-04-29] MEDS ORDERED: KETAMINE 10 MG/ML 20 ML VIAL ONE (14:59)
[2020-04-29] MEDS ORDERED: MIDAZOLAM 2 MG/2 ML VIAL ONE (14:59)
[2020-04-29] MEDS ORDERED: PROPOFOL 10 MG/ML 20 ML VIAL IV ONE (14:59)
[2020-04-29] MEDS ORDERED: SODIUM CHLORIDE 0.9% 100 ML with ceFAZolin 2,000 MG IV ONE ×2 (15:02)
[2020-04-29] MEDS ORDERED: ceFAZolin 1,000 MG in SODIUM CHLORIDE 0.9% 1,000 ML IRRIGATION ONE (15:26)
[2020-04-29] MEDS ORDERED: LACTATED RINGERS 1,000 ML IV ONE (15:30)
[2020-04-29] MEDS ORDERED: HYDROmorphone 1 MG/ML 1 ML SYRINGE IVP PRN (16:54)
[2020-04-29] MEDS ORDERED: BENZOCAINE/MENTHOL LOZENG 1 EACH LOZENGE MUCOUS MEM PRN (16:54)
[2020-04-29] MEDS ORDERED: HYDROmorphone 0.5 MG/0.5 ML SYRINGE IVP PRN (16:54)
[2020-04-29] MEDS ORDERED: MAGNESIUM HYDROXIDE 2,400 MG/10 ML CUP PO PRN (16:55)
[2020-04-29] MEDS ORDERED: traMADol 50 MG TAB PO PRN (16:55)
[2020-04-29] MEDS ORDERED: NALOXONE 0.4 MG/ML 1 ML VIAL IV PRN (16:55)
[2020-04-29] MEDS ORDERED: HYDROmorphone 0.5 MG/0.5 ML SYRINGE IVP ONE ×2 (16:59→17:14)
--- NOTE | 2020-04-29 17:01 | P.OP ---
Date of Procedure: 04/29/20 Preoperative Diagnosis: Right hip basicervical acute traumatic hip fracture Postoperative Diagnosis: Same Anesthesia: spinal Pathology: other (Femoral reamings to pathology) Condition: stable Disposition: PACU Description of Procedure: Preoperative diagnosis: Right hip basicervical acute traumatic hip fracture Postoperative diagnosis: Same Procedure: intertrochanteric hip screw placement Use of fluoroscopic guidance Closed reduction Surgeon: Dr. Ruba Yepez.: Aidee Carvalho who is present that the entire the case persistence during positioning dissection exposure placement of hardware and closure Anesthesia: Spinal Estimated blood loss: Approximately 250 mL Components implanted: [employer] InterTAN short 125 x 10 IM hip screw with lag screw and locking screw and distal locking screw Disposition: To recovery room in good stable condition Operative indications The patient sustained a injury and suffered a hip fracture at the basicervical /inter-trochanteric area of her femur which was minimally displaced and severely symptomatic. We were involved in the case in regard to his hip fracture. We discussed multiple treatment options given her injury. After evaluation it was determined that they would be a candidate for hip internal fixation and stabilization via surgical intervention. This would give them the best chance of mobilization and ambulation. We discussed the range of treatment options from conservative to surgical. They elected proceed with surgical intervention. We answered their questions to the best of our ability healing which they can understand. They signed an informed consent. Operative summary After obtaining informed consent evaluation by anesthesia, preoperative evaluation and clearance for medical service, the patient was identified and prepped Payton area and the surgical site was marked at the right thigh. There brought to the operating room where the given appropriate anesthesia by the anesthesia department in standard fashion without any complications. Once the anesthesia was established we were able to position the patient. The patient was placed on a fracture table with a well-padded perineal post. The operative side on the right was placed in a foot barbosa stirrup which was well-padded well molded and placed in gentle in-line traction. The nonoperative leg was placed in a padded stirrup. C-arm was brought in and we performed a closed reduction technique at the hip. We are able to get good alignment good position of the intertrochanteric fracture with gentle reduction techniques and traction utilizing the fracture table. Once patient was well positioned lower extremity was prepped and draped in normal standard sterile fashion. An appropriate keystone protocol and timeout was completed and were able to proceed with surgery. He started point just proximal to the greater trochanter was established and a median incision approximately 2 inches in length approximately to the greater trochanter. I dissected down through the fascia and I was able to expose the tip of the greater trochanter. A sharp starting hole was established at the tip of the greater trochanter near the junction of the anterior and middle third. Positioning was confirmed with C-arm guidance. I was able to start the awl into the bone and then use a guidepin at the starting point establish down to the level of the lesser trochanter at the intramedullary space. I then used a starting reamer for the greater trochanter placed over the guidepin and reamed down appropriately under C-arm guidance. I was unable to place a guidepin into the intramedullary aspect of the femur and then reamed appropriately to the appropriate length. The positioning was confirmed on C-arm guidance. With the femur appropriately reamed I then chose the appropriate size intramedullary carlos which was connected to the appropriate jig. The jig was checked for alignment. The area was copiously irrigated and suctioned dry and we're able place the carlos at intramedullary space through the starting hole appropriately. It was seated down for appropriate position to align the leg pain into the femoral neck and head. A second incision was established at the site for the placement of the lag screw area and the guide was established at the lateral aspect of the femur and a guidepin was drilled into the femoral neck and head and near center center position. With this appropriate alignment and position where a reamer over the guidepin making sure not to penetrate the a rticular surface. The position was confirmed on C-arm guidance in AP and lateral positions. With this established we were able to place the appropriate size lag screw after measuring. Lag screw was placed into the femoral neck and head good alignment good position with excellent bony purchase. It was appropriately aligned and we placed a locking screw through the carlos appropriately and checked that the position was established. I was able to drill and place the compression screw immediately adjacent and inferior to the lag screw which gave good compression across the fracture site in good alignment and position. With the area in good position able place a distal locking screw. We utilized the guide sleeve a separate incision was made at the skin. The guide sleeve was placed in the lateral aspect of the femur and the distal locking screw hole was established through the femur and distal locking hole of the intramedullary carlos. It was measured appropriately and a distal locking screw was placed in good alignment and good position with excellent bony purchase. The position was checked to make sure it was through the appropriate hole in the intramedullary carlos. With this established we're able to remove the jig completely from the carlos and final images were taken which showed excellent alignment and position of the hardware and the fracture. With the carlos in place and the fracture stable, although the incision sites were copiously irrigated and suctioned dry. Good hemostasis was maintained. Deep fascial layers were closed with #1 Vicryl. Subcu tissue was closed with 2-0 Vicryl. Subcuticular tissues closed with 3-0 Vicryl. Was are cleaned and dried with dressed with exophytic including Telfa and tape. Drapes were broken down, the hip was held in stable position with the post being removed safely once the positioning was stabilized. The patient was then transferred back to their hospital bed being careful to maintain the hip and C- spine alignment and airway. Once stable to patient was transferred back to the postanesthesia care unit to be readmitted for pain control and DVT prophylaxis medical management and monitoring and mobilization we will continue follow patient closely throughout their postoperative course.
[2020-04-29] MEDS: SODIUM CHLORIDE 0.9% 1,000 ML IV SCH (17:36)
[2020-04-29 18:42] LABS: Basophils % (A) 0 %; Eosinophils % (A) 0 %; HCT 41.3 % (34.0-46.0); HGB 13.4 gm/dL (11.4-16.0); Lymphocytes # (A) 0.8 k/uL (1.0-4.8); Lymphocytes % (A) 6 %; MCH 31.1 pg (25.0-35.0); MCHC 32.4 g/dL (31.0-37.0); MCV 96.1 fL (80.0-100.0); Mean Platelet Volume 6.6; Monocytes # (A) 0.5 k/uL (0-1.0); Monocytes % (A) 4 %; Neutrophils # (A) 12.3 k/uL (1.3-7.7); Neutrophils % (A) 90 %; Platelet Count 274 k/uL (150-450); RDW 13.7 % (11.5-15.5); WBC 13.7 k/uL (3.8-10.6)
[2020-04-29 19:56] LABS: T4, Free (Free Thyroxine) 2.03 ng/dL (0.78-2.19)
[2020-04-30] MEDS: HYDROmorphone 0.5 MG/0.5 ML SYRINGE IVP PRN ×2 (02:42→05:48)
[2020-04-30] MEDS: SODIUM CHLORIDE 0.9% 1,000 ML IV SCH ×2 (05:49→20:10)
[2020-04-30] MEDS: SENNOSIDES-DOCUSATE SODIUM 1 EACH TAB PO SCH (06:54)
[2020-04-30] MEDS: PANTOPRAZOLE 40 MG TABLET PO SCH (06:54)
[2020-04-30] MEDS: HYDROcodone/APAP 5-325MG 1 EACH TAB PO PRN ×2 (06:54→16:09)
--- NOTE | 2020-04-30 07:26 | XR ---
Fluoroscopy History: ORIF RIGHT HIP ORIF RIGHT HIP WITH , 1 MIN AND 48 SEC OF FLUORO. 3 IMAGES SAVED.
[2020-04-30] MEDS: APIXABAN 2.5 MG TABLET PO SCH ×2 (09:27→20:10)
--- NOTE | 2020-04-30 15:31 | P.PN ---
Progress Note - Text Progress Note Date: 04/30/20 Postoperative day #1 Patient is seen and examined today at bedside. The patient has some pain around the surgical site as expected. Pain is being controlled with medication. She is up in a chair and feeling quite well. She still requiring 2 person. To get up out of bed. Physical Exam Afebrile with stable vital signs Abdomen is soft nontender. Chest has good excursion deep and space expiration The incision site is clean dry and intact. No erythema there is no purulence. Her thigh and calf are soft and nontender. Extremities have not had neurologic change from prior to surgery. Calves and thighs were soft nontender without evidence of DVT. She has sustained dorsal flexion plantar flexion and EHL intact. Assessment/Plan Postoperative day #1 status post right hip IM hip screw for her busy cervical femur fracture Patient is progressing as expected from the surgery. She still requiring significant assistance for ringing up out of bed with 2 person max assist. With her advanced age and her at home she is deciding between going home with home health versus group home facility. We will start the process of arranging for group home as I feel that would be the most beneficial for her to get her strong as she needs to remain nonweightbearing on her right lower extremity and this would be very difficult between her and her alone at home. I think she would be safest with group home facility at this point. We will continue to increase the patient's mobilization with therapy. We will continue pain control with oral or IV medications. We'll continue to follow patient closely.
--- NOTE | 2020-04-30 18:48 | PN ---
PROGRESS NOTE DATE OF SERVICE: 04/29/2020 CHIEF COMPLAINT: Right hip fracture. HISTORY OF PRESENT ILLNESS: This lady is doing fairly well. She is having some discomfort, but she is motivated to get up and move about. She has had no chills, fever, shortness of breath, etc. PHYSICAL EXAMINATION: Vital signs are normal. Chest is clear. Cardiac exam is unchanged. The abdomen is soft, nontender with her ventral hernia. IMPRESSION: 1. Right hip fracture, status post open reduction internal fixation. 2. Hypothyroidism. PLAN: Begin postoperative course with increased activity and physical therapy. MMODL / IJN: [id number] /
--- NOTE | 2020-04-30 18:54 | PN ---
PROGRESS NOTE DATE OF SERVICE: 04/30/2020 CHIEF COMPLAINT: Status post right ORIF of hip fracture. HISTORY OF PRESENT ILLNESS: This lady is doing well. She has had no fever, chills, shortness of breath, chest pain, abdominal pain, etc. She has felt slightly nauseated once in a while. PHYSICAL EXAMINATION: Her chest is clear and cardiac exam is normal. The abdomen is soft and nontender. IMPRESSION: Fracture of the right hip. PLAN: Increase activity and start physical therapy. MMODL / IJN: [id number] /
[2020-05-01] MEDS: HYDROcodone/APAP 5-325MG 1 EACH TAB PO PRN ×2 (02:12→17:01)
[2020-05-01] MEDS: APIXABAN 2.5 MG TABLET PO SCH ×2 (07:39→20:27)
[2020-05-01] MEDS: PANTOPRAZOLE 40 MG TABLET PO SCH (07:39)
[2020-05-01] MEDS: SENNOSIDES-DOCUSATE SODIUM 1 EACH TAB PO SCH (07:39)
[2020-05-01 08:52] LABS: Basophils # (A) 0.02 X 10*3/uL (0.00-0.10); Basophils % (A) 0.2 %; Eosinophils # (A) 0.06 X 10*3/uL (0.04-0.35); Eosinophils % (A) 0.7 %; HCT 32.9 % (37.2-46.3); HGB 10.2 g/dL (12.0-15.0); Lymphocytes # (A) 0.72 X 10*3/uL (0.90-5.00); Lymphocytes % (A) 8.9 %; MCH 29.7 pg (27.0-32.0); MCV 95.6 fL (80.0-97.0); Monocytes # (A) 0.57 X 10*3/uL (0.20-1.00); Neutrophils # (A) 6.73 X 10*3/uL (1.80-7.70); Neutrophils % (A) 82.8 %; Platelet Count 187 X 10*3/uL (140-440); RBC 3.44 X 10*6/uL (4.10-5.20); RDW 13.7 % (11.5-14.5); WBC 8.13 X 10*3/uL (4.50-10.00)
--- NOTE | 2020-05-01 10:27 | P.PN ---
Subjective Progress Note Date: 05/01/20 Principal diagnosis: Right hip fracture. Status post IM hip screw right hip. This is an 84-year-old female who is postop day #2 status post close reduction with insertion of IM hip screw right hip. She is stable from an orthopedic standpoint. She has no new complaints or concerns today. Vital signs are stable. Objective - Vital Signs Vital signs: Vital Signs Temp 98.5 F 05/01/20 07:35 Pulse 86 05/01/20 07:35 Resp 17 05/01/20 07:35 BP 124/70 05/01/20 07:35 Pulse Ox 95 05/01/20 07:35 Intake & Output 04/30/20 05/01/20 05/01/20 18:59 06:59 18:59 Intake Total 100 Output Total 150 100 Balance -150 0 Intake: Oral 100 Output: Urine 150 100 Uretheral (Payton) 150 Other: Voiding Method Indwelling Catheter # Voids 2 4 # Bowel Movements 0 - Exam This is a pleasant 84-year-old female in no acute distress. She is alert and oriented at this time. Exam of the right hip reveals that her dressing is clean, dry and intact. She has full knee and foot and ankle motion without difficulty or pain. Neurovascular status to the right lower extremity is intact. - Labs CBC & Chem 7: 05/01/20 05:27 04/28/20 17:37 Labs: Abnormal Lab Results - Last 24 Hours (Table) 05/01/20 Range/Units 05:27 RBC 3.44 L (4.10-5.20) X 10*6/uL Hgb 10.2 L (12.0-15.0) g/dL Hct 32.9 L (37.2-46.3) % MCHC 31.0 L (32.0-37.0) g/dL MPV 9.0 L (9.5-12.2) fL Lymphocytes # 0.72 L (0.90-5.00) X 10*3/uL Assessment and Plan (1) Status post hip surgery Current Visit: Yes Status: Acute Code(s): Z98.890 - OTHER SPECIFIED POSTPROCEDURAL STATES SNOMED Code(s): 277046100 (2) Closed right hip fracture Current Visit: Yes Status: Acute Code(s): S72.001A - FRACTURE OF UNSP PART OF NECK OF RIGHT FEMUR, INIT SNOMED Code(s): 377708590 (3) Fall Current Visit: Yes Status: Acute Code(s): W19.XXXA - UNSPECIFIED FALL, INITIAL ENCOUNTER SNOMED Code(s): 4522517 Plan: The clinical findings are discussed with the patient. She would like to be discharged home. However, she is having difficulty with physical therapy and maintaining nonweightbearing status to the right lower extremity. We will continue to work with her in PT and discussed possible rehab placement on Sunday.
--- NOTE | 2020-05-01 13:58 | PN ---
PROGRESS NOTE CHIEF COMPLAINT: Status post ORIF of the right hip. HISTORY OF PRESENT ILLNESS: This lady seems to be doing well. She is not febrile. She is not complaining of a great deal of pain. She is slightly confused this morning. PHYSICAL EXAMINATION: She is slightly pale. Chest is clear. Cardiac exam is the same. Abdomen is soft, nontender. IMPRESSION: 1. Status post open reduction and internal fixation of the right hip. 2. Hypothyroidism. 3. Delirium. PLAN: Continue to monitor her postoperative course. Should her delirium become worse, further evaluation will be carried out. MMODL / IJN: [id number] /
[2020-05-01] MEDS: SODIUM CHLORIDE 0.9% 1,000 ML IV SCH (20:27)
[2020-05-02] MEDS: SODIUM CHLORIDE 0.9% 1,000 ML IV SCH ×3 (02:16→23:59)
[2020-05-02] MEDS: SENNOSIDES-DOCUSATE SODIUM 1 EACH TAB PO SCH (08:01)
[2020-05-02] MEDS: APIXABAN 2.5 MG TABLET PO SCH ×2 (08:01→19:43)
[2020-05-02] MEDS: HYDROcodone/APAP 5-325MG 1 EACH TAB PO PRN ×2 (08:01→19:43)
[2020-05-02] MEDS: PANTOPRAZOLE 40 MG TABLET PO SCH (08:01)
--- NOTE | 2020-05-02 10:00 | P.PN ---
Subjective Progress Note Date: 05/02/20 Principal diagnosis: Right hip fracture. Status post IM hip screw right hip. This is an 84-year-old female who is postop day #3 status post close reduction with insertion of IM hip screw right hip. She is stable from an orthopedic standpoint. She has no new complaints or concerns today. Vital signs are stable. She is considering inpatient rehab. Objective - Vital Signs Vital signs: Vital Signs Temp 98.7 F 05/02/20 06:50 Pulse 87 05/02/20 07:40 Resp 16 05/02/20 07:40 BP 155/81 05/02/20 06:50 Pulse Ox 95 05/02/20 07:36 Intake & Output 05/01/20 05/02/20 05/02/20 18:59 06:59 18:59 Output Total 1025 Balance -1025 Output: Urine 1025 Other: Voiding Method External Catheter External Catheter # Bowel Movements 1 - Exam This is a pleasant 84-year-old female in no acute distress. She is alert and oriented at this time. Exam of the right hip reveals that her dressing is clean, dry and intact. She has full knee and foot and ankle motion without difficulty or pain. Neurovascular status to the right lower extremity is intact. - Labs CBC & Chem 7: 05/01/20 05:27 04/28/20 17:37 Assessment and Plan (1) Status post hip surgery Current Visit: Yes Status: Acute Code(s): Z98.890 - OTHER SPECIFIED POSTPROCEDURAL STATES SNOMED Code(s): 639950944 (2) Closed right hip fracture Current Visit: Yes Status: Acute Code(s): S72.001A - FRACTURE OF UNSP PART OF NECK OF RIGHT FEMUR, INIT SNOMED Code(s): 897599967 (3) Fall Current Visit: Yes Status: Acute Code(s): W19.XXXA - UNSPECIFIED FALL, INITIAL ENCOUNTER SNOMED Code(s): 7604933 Plan: The clinical findings are discussed with the patient. She would like to be discharged home. However, she is having difficulty with physical therapy and maintaining nonweightbearing status to the right lower extremity. We will continue to work with her in PT and discussed possible rehab placement on Sunday.
[2020-05-03 07:52] VITALS: RESP 16
[2020-05-03] MEDS: SODIUM CHLORIDE 0.9% 1,000 ML IV SCH (08:37)
[2020-05-03] MEDS: SENNOSIDES-DOCUSATE SODIUM 1 EACH TAB PO SCH (08:37)
[2020-05-03] MEDS: PANTOPRAZOLE 40 MG TABLET PO SCH (08:39)
[2020-05-03] MEDS: APIXABAN 2.5 MG TABLET PO SCH (08:39)
--- NOTE | 2020-05-03 12:51 | P.DS ---
Providers Date of admission: 04/28/20 16:08 Expected date of discharge: 05/03/20 Attending physician: Eulogio Yeh Consults: 04/28/20 17:33 Consult Physician Urgent Consulting Provider: Lobito Miguel Consult Reason/Comments: Medical clearance Do you want consulting provider notified?: Yes Primary care physician: Lobito Miguel - Discharge Diagnosis(es) (1) History of DVT (deep vein thrombosis) Current Visit: Yes Status: Acute (2) Blood disorder Current Visit: Yes Status: Acute (3) Closed right hip fracture Current Visit: Yes Status: Acute (4) Fall Current Visit: Yes Status: Acute (5) Status post hip surgery Current Visit: Yes Status: Acute (6) Hyperthyroidism Current Visit: No Status: Acute Hospital Course: This is a pleasant 84-year-old female who presented with right hip basicervical acute traumatic hip fracture. She was admitted for further treatment and evaluation. She underwent a right intertrochanteric hip screw placement performed on 04/29/2020. Postoperatively she has had good improvement of her symptoms. She does have some increased right hip pain during ambulation. She has been nonweightbearing on the right lower extremity. She has no pain at rest. She is ALLERGIC to aspirin. She has been taking Eliquis without difficulty. Her pain continues to be controlled with oral Valencia. She has been using a walker to aid in ambulation. She was hoping to be discharged home but has had some difficulty with independent ambulation given her nonweightbearing status on the right lower extremity. She is planning for discharge to [facility] rehabilitation facility today. She has no complaints of the bedside. She feels she is ready for discharge home today. She's been eating and voiding without difficulty. The patient tolerated the procedure well and did well postoperatively. Condition on day of discharge stable. Patient will be discharged [facility] rehabilitation facility. Patient was cleared preoperatively for surgery by medicine. Patient currently denies any nausea, vomiting, fever, or chills. Patient is eating and voiding freely without difficulty. Patient may shower Optifoam dressing intact. Patient may remove Optifoam dressing in 3 days and shower without a dressing at that time. Patient should refrain from driving until at least after their first follow-up appointment in the office. Patient must remain strict nonweightbearing on the right lower extremity. She is encouraged to use a walker to aid in ambulation. She is encouraged to work with physical therapy to increase mobility and ambulation. [facility] has been reviewed today, 05/03/2020, with no prescriptions found. An "Opiod Start Talking" Form has been signed and placed in the patient's chart. A prescription has been written for Valencia 5 mg/325 mg 1 tab every 6 hours as needed for pain, dispensed #28. Patient is also given a prescription for Eliquis 2.5 mg by mouth twice a day, dispensed #70. Patient should take this medication until completion. Patient's other medical diagnoses include thyroid disorder, history of DVT, blood disorder, and difficulty with those ordering B12 in which she receives injections monthly. Her prescribed home medications do include continuing with monthly B12 injection as prescribed. Physical Exam Intramedullary Rodding for Intertrochanteric Fracture: Status post surgical day number 4 Patient is examined lying in bed Patient is awake and alert, and oriented 3 Vital signs stable Good chest excursion with deep inspiration and expiration No signs or symptoms of DVT; no calf pain Lower extremity cuffs not currently in place bilaterally Dressing of the right hip is clean, dry, and intact; no erythema, purulence, or signs of infection Some bruising around the right buttock and right hip Some generalized swelling at the superior incision site Dressings are dry with no active drainage Mild pain with palpation over the surgical sites Full range of motion of ankles bilaterally Dorsiflexion, plantarflexion, and extensor hallucis longus positive sustained bilaterally Neurovascularly intact bilateral lower extremities Capillary refill less than 2 seconds bilateral lower extremities Procedures: Right hip intramedullary nail fixation for intertrochanteric hip fracture Patient Condition at Discharge: Stable Plan - Discharge Summary Discharge Rx Participant: Yes New Discharge Prescriptions: New Apixaban [Eliquis] 2.5 mg PO BID #70 tab HYDROcodone/APAP 5-325MG [Valencia 5] 1 each PO Q6HR PRN #28 tab PRN Reason: Pain Continue Multivitamins, Thera [Multivitamin (formulary)] 1 tab PO DAILY Cyanocobalamin [Vitamin B-12 Injection] 1,000 mcg SQ QMONTH Omeprazole [PriLOSEC] 20 mg PO DAILY Levothyroxine Sodium [Synthroid] 75 mcg PO DAILY Ascorbic Acid [Vitamin C] 1,000 mg PO DAILY Discharge Medication List Multivitamins, Thera [Multivitamin (formulary)] 1 tab PO DAILY 03/11/16 [History] Cyanocobalamin [Vitamin B-12 Injection] 1,000 mcg SQ QMONTH 08/04/16 [History] Omeprazole [PriLOSEC] 20 mg PO DAILY 08/04/16 [History] Ascorbic Acid [Vitamin C] 1,000 mg PO DAILY 04/28/20 [History] Levothyroxine Sodium [Synthroid] 75 mcg PO DAILY 04/28/20 [History] Apixaban [Eliquis] 2.5 mg PO BID #70 tab 05/03/20 [Rx] HYDROcodone/APAP 5-325MG [Valencia 5] 1 each PO Q6HR PRN #28 tab 05/03/20 [Rx] Follow up Appointment(s)/Referral(s): Lobito Miguel MD [Primary Care Provider] - 1-2 days Activity/Diet/Wound Care/Special Instructions: 1. Nonweightbearing right lower extremity 2. Patient is encouraged to work with physical therapy to increase mobility and ambulation 3. Patient may use walker to aid in ambulation as needed 4. Keep dressings over the right hip clean and intact over the next 3 days; patient may shower without a dressing intact and 72 hours if dressings remain clean and dry 5. Take medications as prescribed Discharge Disposition: TRANSFER TO SNF/ECF
[2020-05-03 14:14] VITALS: BP 151/81; PULSE 96; TEMP 98.7
--- NOTE | 2020-05-04 13:49 | PN ---
PROGRESS NOTE DATE OF SERVICE: 05/02/2020 CHIEF COMPLAINT: Fractured right hip. HISTORY OF PRESENT ILLNESS: This lady is doing well. She is not having any problems with fever and chills, shortness of breath, etc. PHYSICAL EXAMINATION: Chest is clear. Cardiac exam is normal. Abdomen is unchanged. Dressing is dry. IMPRESSION: Status post open reduction internal fixation of right hip. PLAN: Progress activity and she is going to rehab tomorrow. MMODL / IJN: [id number] /
--- NOTE | 2020-05-04 14:01 | PN ---
PROGRESS NOTE CHIEF COMPLAINT: Status post right hip fracture. HISTORY OF PRESENT ILLNESS: This lady is doing well. She is going to the [facility] today. PHYSICAL EXAMINATION: Chest is clear. Cardiac exam is normal. The abdomen is soft. IMPRESSION: 1. Status post open reduction internal fixation of the right hip. 2. Hypothyroidism. 3. Ventral hernia. PLAN: Discharge to halfway today for rehab. MMASAF / FIDEN: [id number] /
== END 2020-05-03 16:02 | DRG 481 ==
LOC: EC 11:47 → 4SSUR 16:08
PROVIDERS: ADMIT Orthopaedic Surgery Orthopaedic Surgery of the Spine; ATTEND Orthopaedic Surgery Orthopaedic Surgery of the Spine
PROC: 0QS636Z Reposition Right Upper Femur with Intramedullary Internal Fixation Device, Percutaneous Approach (ICD-10-PCS; principal; 2020-04-29 07:30)
DX: S72.141A Displaced intertrochanteric fracture of right femur, initial encounter for closed fracture (principal); D68.9 Coagulation defect, unspecified; Z20.822 Contact with and (suspected) exposure to COVID-19; E89.0 Postprocedural hypothyroidism; K21.9 Gastro-esophageal reflux disease without esophagitis; M81.0 Age-related osteoporosis without current pathological fracture; K43.9 Ventral hernia without obstruction or gangrene; R41.0 Disorientation, unspecified; W01.0XXA Fall on same level from slipping, tripping and stumbling without subsequent striking against object, initial encounter; Y92.512 Supermarket, store or market as the place of occurrence of the external cause; Z79.890 Hormone replacement therapy; Z79.899 Other long term (current) drug therapy; Z90.49 Acquired absence of other specified parts of digestive tract; Z86.718 Personal history of other venous thrombosis and embolism; Z90.710 Acquired absence of both cervix and uterus; Z98.42 Cataract extraction status, left eye; Z98.41 Cataract extraction status, right eye; Z88.5 Allergy status to narcotic agent; Z88.2 Allergy status to sulfonamides; Z88.8 Allergy status to other drugs, medicaments and biological substances; Z88.6 Allergy status to analgesic agent; Z91.040 Latex allergy status
CPT/HCPCS: 36415; 71045; 73502; 80053; 84439; 84443; 85025; 85610; 85730; 87635; 88304; 88311; 93005; 94760; 96361; 96374; 96375; 99284

== ENCOUNTER → 2020-07-06 | Outpatient (CLI) | payer MEDICARE, BC ==
--- NOTE | 2020-07-06 12:35 | US ---
EXAMINATION TYPE: US thyroid st tissue head/neck DATE OF EXAM: 07/06/2020 COMPARISON: US CLINICAL HISTORY: C73 MALIGNANT NEOPLASM OF THYROID GLAND. Annual F/U status post thyroidectomy Bilateral neck scanned, no evidence of lymphadenopathy. Bilateral thyroid beds appeared wnl, similar to previous. IMPRESSION: 1. No suspicious thyroid bed abnormality 2017 ACR TI-RADS LEVEL: TR-RADS 1 - BENIGN: No FNA *Highest TI-RADS level nodule reported
== END | disposition home or self-care (01) ==
LOC: RADUSWWP 11:03
PROVIDERS: ATTEND Internal Medicine Endocrinology, Diabetes & Metabolism
DX: C73 Malignant neoplasm of thyroid gland (principal); E89.0 Postprocedural hypothyroidism
CPT/HCPCS: 76536; 84432; 84443; 86800

== ENCOUNTER → 2021-02-11 | Outpatient (CLI) | payer MEDICARE, BC ==
--- NOTE | 2021-02-14 14:00 | MM ---
Reason for exam: screening (asymptomatic). Last mammogram was performed 2 years ago. History: Patient is postmenopausal. Physical Findings: A clinical breast exam by your physician is recommended on an annual basis and results should be correlated with mammographic findings. MG 3D Screening Mammo W/Cad Bilateral CC and MLO view(s) were taken. Prior study comparison: January 29, 2019, bilateral MG screening mammo w CAD. December 25, 2017, bilateral MG screening mammo w CAD. The breast tissue is heterogeneously dense. This may lower the sensitivity of mammography. No significant changes when compared with prior studies. ASSESSMENT: Benign, BI-RAD 2 RECOMMENDATION: Routine screening mammogram of both breasts in 1 year.
== END | disposition home or self-care (01) ==
LOC: RADMAMWWP 11:20
PROVIDERS: ATTEND Obstetrics & Gynecology
DX: Z12.31 Encounter for screening mammogram for malignant neoplasm of breast (principal); Z78.0 Asymptomatic menopausal state
CPT/HCPCS: 77063; 77067

== ENCOUNTER → 2021-05-09 | Outpatient (CLI) | payer MEDICARE, BC | END | disposition home or self-care (01) | LOC: LABWHC1 11:10 | PROVIDERS: ATTEND Internal Medicine Endocrinology, Diabetes & Metabolism | DX: C73 Malignant neoplasm of thyroid gland (principal) | CPT/HCPCS: 36415; 84432; 84443; 86800 ==

== ENCOUNTER → 2021-05-10 | Outpatient (CLI) | payer MEDICARE, BC ==
--- NOTE | 2021-05-10 12:04 | US ---
EXAMINATION TYPE: US thyroid st tissue head/neck DATE OF EXAM: 05/10/2021 COMPARISON: 07/06/2020 CLINICAL HISTORY: 85-year-old female C73 MALIGNANT NEOPLASM OF THYROID GLAND. Malignant neoplasm of t hyroid gland per order. Hx total thyroidectomy. TECHNIQUE: Multiple sonographic images of the thyroidectomy bed are obtained. FINDINGS: GLAND SIZE: Right Lobe: Surgically absent. Left Lobe: Surgically absent. No abnormalities seen at this time. [employer] D[employer] Supervisor notes: Bilateral neck scanned, no evidence of lymphadenopathy. IMPRESSION: The thyroidectomy bed remains clear.
== END | disposition home or self-care (01) ==
LOC: RADUSWWP 08:55
PROVIDERS: ATTEND Internal Medicine Endocrinology, Diabetes & Metabolism
DX: C73 Malignant neoplasm of thyroid gland (principal); E89.0 Postprocedural hypothyroidism
CPT/HCPCS: 76536

== ENCOUNTER → 2021-11-09 | Outpatient (CLI) | payer MEDICARE, BC | END | disposition home or self-care (01) | LOC: LABWHC1 10:56 | PROVIDERS: ATTEND Internal Medicine Endocrinology, Diabetes & Metabolism | DX: C73 Malignant neoplasm of thyroid gland (principal) | CPT/HCPCS: 36415; 84432; 84443; 86800 ==

== ENCOUNTER → 2022-06-22 | Outpatient (CLI) | payer MEDICARE, BC | END | disposition home or self-care (01) | LOC: LABWHC1 09:25 | PROVIDERS: ATTEND Internal Medicine Endocrinology, Diabetes & Metabolism | DX: C73 Malignant neoplasm of thyroid gland (principal) | CPT/HCPCS: 36415; 84432; 84443; 86800 ==

== ENCOUNTER 2023-06-30 10:15 | Inpatient (IN) | payer MEDICARE, BC ==
--- NOTE | 2023-06-30 10:40 | ED ---
General Adult HPI - General Chief complaint: Recheck/Abnormal Lab/Rx Stated complaint: Abn Labs Time Seen by Provider: 06/30/23 10:22 Source: patient, family, RN notes reviewed, old records reviewed (Labs from physician) Mode of arrival: ambulatory Limitations: no limitations, altered mental status - History of Present Illness Initial comments: Patient is a 87-year-old female present to the emergency department with family with concerns for not feeling well. Symptoms have been present for 1 week. Patient was diagnosed with influenza and urinary tract infection. Patient has been having more fatigue. Patient has decreased oral intake. No vomiting. Occasional cough and congestion. Patient denies dyspnea. History is somewhat limited secondary to family reported memory problems - Related Data Home Medications Medication Instructions Recorded Confirmed Omeprazole [PriLOSEC] 20 mg PO DAILY PRN 08/04/16 06/30/23 Alendronate Sodium [Fosamax] 70 mg PO TH 07/07/22 06/30/23 Multivitamin/Iron/Folic Acid 1 tab PO DAILY 07/07/22 06/30/23 [Centrum Women Tablet] Cholecalciferol (Vitamin D3) 50 mcg PO QID 06/30/23 06/30/23 [Vitamin D3 (50 Mcg = 2000 Iu)] Levothyroxine Sodium [Synthroid] 112.5 mcg PO DAILY 06/30/23 06/30/23 Allergies Allergy/AdvReac Type Severity Reaction Status Date / Time calcitriol [From Rocaltrol] Allergy Rash/Hives Verified 06/30/23 11:51 latex Allergy Rash/Hives Verified 06/30/23 11:51 pneumococcal vaccine Allergy Unknown Verified 06/30/23 11:51 propoxyphene HCl Allergy Unknown Verified 06/30/23 11:51 [From Darvon] aspirin AdvReac Nausea & Verified 06/30/23 11:51 Vomiting codeine AdvReac Nausea & Verified 06/30/23 11:51 Vomiting Sulfa (Sulfonamide AdvReac Nausea & Verified 06/30/23 11:51 Antibiotics) Vomiting Review of Systems ROS Statement: Those systems with pertinent positive or pertinent negative responses have been documented in the HPI. ROS Other: All systems not noted in ROS Statement are negative. Constitutional: Reports: chills Eyes: Denies: eye pain ENT: Reports: congestion. Denies: ear pain Respiratory: Reports: cough Cardiovascular: Denies: chest pain Gastrointestinal: Denies: vomiting Past Medical History Past Medical History: Blood Disorder, Deep Vein Thrombosis (DVT), Eye Disorder, GERD/Reflux, Thyroid Disorder Additional Past Medical History / Comment(s): History of recurrent DVTs, possible hypercoagulable state nontender the patient has been told to have a pins position for a blood clotting disorder, chronic pernicious anemia, cystocele, hemorrhoids, abdominal wall hernia, thyroid nodules, osteoporosis, GERD, suspected Graves' disease, History of Any Multi-Drug Resistant Organisms: None Reported Past Surgical History: Cholecystectomy, Hysterectomy, Orthopedic Surgery Additional Past Surgical History / Comment(s): Colonoscopy; EGD; Cataracts thyroidectomy, hip repair Past Anesthesia/Blood Transfusion Reactions: No Reported Reaction Past Psychological History: No Psychological Hx Reported Smoking Status: Never smoker Past Alcohol Use History: None Reported Past Drug Use History: None Reported - Past Family History Mother Family Medical History: No Reported History General Exam Limitations: no limitations General appearance: alert, in no apparent distress Head exam: Present: normocephalic Eye exam: Present: normal appearance ENT exam: Present: normal oropharynx Neck exam: Present: normal inspection Respiratory exam: Present: normal lung sounds bilaterally Cardiovascular Exam: Present: regular rate, normal rhythm GI/Abdominal exam: Present: soft. Absent: tenderness Extremities exam: Present: normal inspection Neurological exam: Present: alert Psychiatric exam: Present: normal affect, normal mood Skin exam: Present: normal color Course Vital Signs 06/30/23 06/30/23 10:19 10:54 Temperature 99 F Pulse Rate 55 L Respiratory 22 16 Rate Blood Pressure 113/54 O2 Sat by Pulse 94 L Oximetry Medical Decision Making - Medical Decision Making Was pt. sent in by a medical professional or institution (, PA, [employer], urgent care, hospital, or snf...) When possible be specific @ -Patient was sent over from Dr. Miguel's Did you speak to anyone other than the patient for history (EMS, parent, family, police, friend...)? What history was obtained from this source @ - is present and provides majority of history as patient is a poor historian Did you review nursing and triage notes (agree or disagree)? Why? @ -I reviewed and agree with nursing and triage notes Were old charts reviewed (outside hosp., previous admission, EMS record, old EKG, old radiological studies, urgent care reports/EKG's, snf records)? Report findings @ -No old charts were reviewed Differential Diagnosis (chest pain, altered mental status, abdominal pain women, abdominal pain men, vaginal bleeding, weakness, fever, dyspnea, syncope, headache, dizziness, GI bleed, back pain, seizure, CVA, palpatations, mental health, musculoskeletal)? @ -Differential Weakness: Hypoglycemia, shock, sepsis, hyponatremia, anemia, infection, MA, ETOH, adverse medicine reaction, overdose, stroke, this is not meant to be an all-inclusive list. EKG interpreted by me (3pts min.). @ -As above X-rays interpreted by me (1pt min.). @ -Chest x-ray shows atelectasis and diffuse interstitial changes CT interpreted by me (1pt min.). @ -None done U/S interpreted by me (1pt. min.). @ -None done What testing was considered but not performed or refused? (CT, X-rays, U/S, labs)? Why? @ -None What meds were considered but not given or refused? Why? @ -None Did you discuss the management of the patient with other professionals (professionals i.e. , PA, [employer], lab, RT, psych nurse, social welfare research worker, electronic commerce specialist, teacher, chief medical officer, case making machine operator)? Give summary @ -Dr. Miguel who will admit his patient Was smoking cessation discussed for >3mins.? @ -No Was critical care preformed (if so, how long)? @ -31 minutes critical care Were there social determinants of health that impacted care today? How? (Homelessness, low income, unemployed, alcoholism, drug addiction, transportation, low edu. Level, literacy, decrease access to med. care, penitentiary, rehab)? @ -No Was there de-escalation of care discussed even if they declined (Discuss DNR or withdrawal of care, Hospice)? DNR status @ -No What co-morbidities impacted this encounter? (DM, HTN, Smoking, COPD, CAD, Cancer, CVA, ARF, Chemo, Hep., AIDS, mental health diagnosis, sleep apnea, morbid obesity)? @ -None Was patient admitted / discharged? Hospital course, mention meds given and route, prescriptions, significant lab abnormalities, going to OR and other pertinent info. @ -Patient presents with influenza and acute renal failure. Patient will be admitted with nephrology consult. Admission orders written. IV fluids started. Tamiflu will be started. Undiagnosed new problem with uncertain prognosis? @ -No Drug Therapy requiring intensive monitoring for toxicity (Heparin, Nitro, Insulin, Cardizem)? @ -No Were any procedures done? @ -No Diagnosis/symptom? @ -Acute renal failure, influenza Acute, or Chronic, or Acute on Chronic? @ -Acute, acute Uncomplicated (without systemic symptoms) or Complicated (systemic symptoms)? @ -Default Side effects of treatment? @ -No Exacerbation, Progression, or Severe Exacerbation? @ -No Poses a threat to life or bodily function? How? (Chest pain, USA, MA, pneumonia, PE, COPD, DKA, ARF, appy, cholecystitis, CVA, Diverticulitis, Homicidal, Suicidal, threat to staff... and all critical care pts) @ -Patient is in new renal failure There is concern for sepsis diagnosed at 11:50 AM. Blood culture and lactic acid and IV antibiotics have all been ordered. - Lab Data Result diagrams: 06/30/23 10:43 06/30/23 10:43 Lab Results 06/30/23 06/30/23 06/30/23 Range/Units 10:43 10:43 10:43 WBC 12.1 H (3.8-10.6) k/uL RBC 4.29 (3.80-5.40) m/uL Hgb 12.8 (11.4-16.0) gm/dL Hct 40.7 (34.0-46.0) % MCV 94.9 (80.0-100.0) fL MCH 29.9 (25.0-35.0) pg MCHC 31.5 (31.0-37.0) g/dL RDW 15.0 (11.5-15.5) % Plt Count 196 (150-450) k/uL MPV 8.4 Neutrophils % 87 % Lymphocytes % 7 % Monocytes % 5 % Eosinophils % 0 % Basophils % 0 % Neutrophils # 10.5 H (1.3-7.7) k/uL Lymphocytes # 0.9 L (1.0-4.8) k/uL Monocytes # 0.6 (0-1.0) k/uL Eosinophils # 0.0 (0-0.7) k/uL Basophils # 0.0 (0-0.2) k/uL PT 10.7 (10.0-12.5) sec INR 1.0 (<1.2) APTT 31.5 H (22.0-30.0) sec Sodium 133 L (137-145) mmol/L Potassium 3.4 L (3.5-5.1) mmol/L Chloride 100 (98-107) mmol/L Carbon Dioxide <5 L* (22-30) mmol/L Anion Gap mmol/L BUN 203 H* (7-17) mg/dL Creatinine 10.46 H* (0.52-1.04) mg/dL Est GFR (CKD-EPI)AfAm 3 (>60 ml/min/1.73 sqM) Est GFR (CKD-EPI)NonAf 3 (>60 ml/min/1.73 sqM) Glucose 123 H (74-99) mg/dL Plasma Lactic Acid Zack (0.7-2.0) mmol/L Calcium 6.0 L* (8.4-10.2) mg/dL Total Bilirubin 0.3 (0.2-1.3) mg/dL AST 33 (14-36) U/L ALT 20 (4-34) U/L Alkaline Phosphatase 80 (38-126) U/L Total Protein 6.8 (6.3-8.2) g/dL Albumin 3.7 (3.5-5.0) g/dL Influenza Type A (PCR) (Not Detectd) Influenza Type B (PCR) (Not Detectd) RSV (PCR) (Not Detectd) SARS-CoV-2 (PCR) (Not Detectd) 06/30/23 06/30/23 Range/Units 10:43 10:43 WBC (3.8-10.6) k/uL RBC (3.80-5.40) m/uL Hgb (11.4-16.0) gm/dL Hct (34.0-46.0) % MCV (80.0-100.0) fL MCH (25.0-35.0) pg MCHC (31.0-37.0) g/dL RDW (11.5-15.5) % Plt Count (150-450) k/uL MPV Neutrophils % % Lymphocytes % % Monocytes % % Eosinophils % % Basophils % % Neutrophils # (1.3-7.7) k/uL Lymphocytes # (1.0-4.8) k/uL Monocytes # (0-1.0) k/uL Eosinophils # (0-0.7) k/uL Basophils # (0-0.2) k/uL PT (10.0-12.5) sec INR (<1.2) APTT (22.0-30.0) sec Sodium (137-145) mmol/L Potassium (3.5-5.1) mmol/L Chloride (98-107) mmol/L Carbon Dioxide (22-30) mmol/L Anion Gap mmol/L BUN (7-17) mg/dL Creatinine (0.52-1.04) mg/dL Est GFR (CKD-EPI)AfAm (>60 ml/min/1.73 sqM) Est GFR (CKD-EPI)NonAf (>60 ml/min/1.73 sqM) Glucose (74-99) mg/dL Plasma Lactic Acid Zack 0.6 L (0.7-2.0) mmol/L Calcium (8.4-10.2) mg/dL Total Bilirubin (0.2-1.3) mg/dL AST (14-36) U/L ALT (4-34) U/L Alkaline Phosphatase (38-126) U/L Total Protein (6.3-8.2) g/dL Albumin (3.5-5.0) g/dL Influenza Type A (PCR) Detected A (Not Detectd) Influenza Type B (PCR) Not Detected (Not Detectd) RSV (PCR) Not Detected (Not Detectd) SARS-CoV-2 (PCR) Not Detected (Not Detectd) Disposition Clinical Impression: Influenza, Acute renal failure Disposition: ADMITTED IP TO THIS HOSP Condition: Serious Is patient prescribed a controlled substance at d/c from ED?: No Referrals: Lobito Miguel MD [Primary Care Provider] - 1-2 days Time of Disposition: 12:15
[2023-06-30] MEDS: ACETAMINOPHEN TAB 325 MG TAB PO STA (10:48)
[2023-06-30] MEDS: SODIUM CHLORIDE 0.9% 1,000 ML IV SCH (10:48)
--- NOTE | 2023-06-30 11:08 | XR ---
EXAMINATION TYPE: XR chest 2V DATE OF EXAM: 06/30/2023 COMPARISON: 04/29/2020 HISTORY: 87-year-old female with fever and shortness of breath TECHNIQUE: AP and lateral views FINDINGS: Heart upper limits of normal size. Atherosclerotic arch calcifications. Diffuse interstitial density. Hyperinflation. Bandlike area of atelectasis right midlung. Cholecystectomy clips. IMPRESSION: COPD and diffuse increased interstitial density may reflect atypical pneumonias. Additional right mid lung opacity, likely bandlike atelectasis. Follow-up after treatment to assess for clearance.
[2023-06-30 11:12] LABS: Basophils % (A) 0 %; Eosinophils % (A) 0 %; HCT 40.7 % (34.0-46.0); HGB 12.8 gm/dL (11.4-16.0); Lymphocytes # (A) 0.9 k/uL (1.0-4.8); Lymphocytes % (A) 7 %; MCH 29.9 pg (25.0-35.0); MCHC 31.5 g/dL (31.0-37.0); MCV 94.9 fL (80.0-100.0); Mean Platelet Volume 8.4; Monocytes # (A) 0.6 k/uL (0-1.0); Monocytes % (A) 5 %; Neutrophils # (A) 10.5 k/uL (1.3-7.7); Neutrophils % (A) 87 %; Platelet Count 196 k/uL (150-450); RBC 4.29 m/uL (3.80-5.40); WBC 12.1 k/uL (3.8-10.6)
[2023-06-30 11:36] LABS: ALT 20 U/L (4-34); AST 33 U/L (14-36); African American GFR (CKD) 3 (>60 ml/min/1.73 sqM); Albumin 3.7 g/dL (3.5-5.0); Alkaline Phosphatase 80 U/L (38-126); Chloride 100 mmol/L (98-107); Glucose 123 mg/dL (74-99); Non-African American GFR(CKD) 3 (>60 ml/min/1.73 sqM); Potassium 3.4 mmol/L (3.5-5.1); Sodium 133 mmol/L (137-145); Total Bilirubin 0.3 mg/dL (0.2-1.3); Total Protein 6.8 g/dL (6.3-8.2)
[2023-06-30 11:40] LABS: Partial Thromboplastin Time 31.5 sec (22.0-30.0); Prothrombin Time 10.7 sec (10.0-12.5)
[2023-06-30 11:53] LABS: Carbon Dioxide <5 mmol/L (22-30)
[2023-06-30 11:55] LABS: Blood Urea Nitrogen 203 mg/dL (7-17)
[2023-06-30] MEDS ORDERED: NALOXONE 0.4 MG/ML 1 ML VIAL IV PRN (12:18)
[2023-06-30] MEDS ORDERED: ACETAMINOPHEN TAB 325 MG TAB PO PRN (12:18)
[2023-06-30] MEDS ORDERED: PANTOPRAZOLE 40 MG TABLET PO PRN (12:33)
[2023-06-30] MEDS: SODIUM BICARB 8.4% 50 ML SYR (1 MEQ/ML) IV STA (12:44)
[2023-06-30 13:25] LABS: Appearance,Urine Turbid (Clear); Bacteria,Urine Moderate /hpf; Bilirubin,Urine Negative (Negative); Blood,Urine Small (Negative); Color,Urine Yellow; Glucose,Urine (UA) Negative (Negative); Ketones,Urine Negative (Negative); Leukocyte Esterase,Urine Large (Negative); Nitrite,Urine Negative (Negative); Protein,Urine 2+ (Negative); RBC,Urine 56 /hpf (0-5); Squamous Epithelial Cell,Urine 13 /hpf (0-4); Urobilinogen,Urine <2.0 mg/dL (<2.0); WBC,Urine >182 /hpf (0-5)
[2023-06-30 13:32] LABS: Specific Gravity,Urine 1.014 (1.001-1.035)
--- NOTE | 2023-06-30 14:35 | P.NPCON ---
History of Present Illness - Reason for Consult Consult date: 06/30/23 - Chief Complaint Weakness - History of Present Illness Patient is a 87-year-old female present to the emergency department with family with concerns for not feeling well. Symptoms have been present for 1 week. Patient was diagnosed with influenza and urinary tract infection. Patient has been having more fatigue. Patient has decreased oral intake. No vomiting. Occasional cough and congestion. Patient denies dyspnea. Patient with dementia and unable to provide history which was obtained from chart. Vital signs are stable. General: No acute distress. HEENT: Head exam is unremarkable. LUNGS: No audible rhonchi or wheezes. HEART: Rate and Rhythm are regular. ABDOMEN: Nontender. EXTREMITITES: no edema. Review of Systems Constitutional: Reports as per HPI Past Medical History Past Medical History: Blood Disorder, Deep Vein Thrombosis (DVT), Eye Disorder, GERD/Reflux, Thyroid Disorder Additional Past Medical History / Comment(s): History of recurrent DVTs, possible hypercoagulable state nontender the patient has been told to have a pins position for a blood clotting disorder, chronic pernicious anemia, cystocele, hemorrhoids, abdominal wall hernia, thyroid nodules, osteoporosis, GERD, suspected Graves' disease, History of Any Multi-Drug Resistant Organisms: None Reported Past Surgical History: Cholecystectomy, Hysterectomy, Orthopedic Surgery Additional Past Surgical History / Comment(s): Colonoscopy; EGD; Cataracts thyroidectomy, hip repair Past Anesthesia/Blood Transfusion Reactions: No Reported Reaction Past Psychological History: No Psychological Hx Reported Smoking Status: Never smoker Past Alcohol Use History: None Reported Past Drug Use History: None Reported - Past Family History Mother Family Medical History: No Reported History Medications and Allergies Home Medications Medication Instructions Recorded Confirmed Type Omeprazole [PriLOSEC] 20 mg PO DAILY PRN 08/04/16 06/30/23 History Alendronate Sodium [Fosamax] 70 mg PO TH 07/07/22 06/30/23 History Multivitamin/Iron/Folic Acid 1 tab PO DAILY 07/07/22 06/30/23 History [Centrum Women Tablet] Cholecalciferol (Vitamin D3) 50 mcg PO QID 06/30/23 06/30/23 History [Vitamin D3 (50 Mcg = 2000 Iu)] Levothyroxine Sodium [Synthroid] 112.5 mcg PO DAILY 06/30/23 06/30/23 History Allergies Allergy/AdvReac Type Severity Reaction Status Date / Time calcitriol [From Rocaltrol] Allergy Rash/Hives Verified 06/30/23 11:51 latex Allergy Rash/Hives Verified 06/30/23 11:51 pneumococcal vaccine Allergy Unknown Verified 06/30/23 11:51 propoxyphene HCl Allergy Unknown Verified 06/30/23 11:51 [From Darvon] aspirin AdvReac Nausea & Verified 06/30/23 11:51 Vomiting codeine AdvReac Nausea & Verified 06/30/23 11:51 Vomiting Sulfa (Sulfonamide AdvReac Nausea & Verified 06/30/23 11:51 Antibiotics) Vomiting Physical Exam Vitals: Vital Signs Temp Pulse Resp BP Pulse Ox 06/30/23 10:54 16 06/30/23 10:19 99 F 55 L 22 113/54 94 L Intake and Output 06/29/23 06/30/23 06/30/23 22:59 06:59 14:59 Other: Weight 45.359 kg Results - Lab Results Most recent lab results Calcium 6.0 mg/dL (8.4-10.2) L* 06/30/23 10:43 06/30/23 10:43 06/30/23 10:43 Assessment and Plan Plan: Assessment: 1. Oliguric FELIX likely ATN from severe volume depletion. Previous baseline 1.2 (2020), most recent creatinine July 2022 2.0 mg/dL. Presented creatinine 10.4 with volume depletion. PVR negative. UA consistent with infection. 2. CKD Stage 4, baseline creatinine possibly around 2.0 mg/dL GFR 23. 3. Severe dehydration. 4. Hypokalemia related to poor intake. 5. Severe AGMA related to FELIX 6. Hypocalcemia 7. Influenza A Plan: Change IVF to bicarb drip at 125 cc/hr. Potassium supplementation, will worsen with bicarb drip. Repeat BMP this evening Check ionized calcium, if low give 2g calcium gluconate IV Renal US ordered, strict I/O's No indication for emergent HD today, monitor daily.
[2023-06-30] MEDS: CHOLECALCIFEROL 25 MCG (1000 IU) TABLET PO SCH (14:50)
[2023-06-30] MEDS: POTASSIUM CHLORIDE ER 20 MEQ TAB.ER PO SCH (14:50)
[2023-06-30] MEDS: OSELTAMIVIR 30 MG CAP PO SCH (15:16)
[2023-06-30] MEDS: DEXTROSE 5% IN WATER 1,000 ML with SODIUM BICARB (1 MEQ/ML) 150 ML IV SCH (15:47)
--- NOTE | 2023-06-30 16:15 | US ---
EXAMINATION TYPE: US kidneys/renal and bladder DATE OF EXAM: 06/30/2023 COMPARISON: NONE CLINICAL INDICATION: Female, 87 years old with history of FELIX. EXAM MEASUREMENTS: Right Kidney: 6.2 x 2.8 x 3.1 cm Left Kidney: 9.9 x 3.9 x 3.8 cm Relays Draftsperson notes:Technical limitations due to patient movement and overlying bowel gas Right Kidney: atrophic. A tiny 8 mm cortical cyst upper pole. No hydronephrosis. Left Kidney: Lower pole cortical cyst measuring 1.8 cm. No hydronephrosis. Bladder: Limited due to nondistention. Bilateral Jets seen: no IMPRESSION: 1. Atrophic right kidney. A couple benign cortical cysts in the kidneys measuring up to 1.8 cm. 2. No hydronephrosis.
[2023-06-30] MEDS: CALCIUM GLUCONATE IN NACL 2 GM in SALINE 1 100ML.BAG IVPB ONE (17:45)
[2023-06-30] MEDS: POTASSIUM CHLORIDE 10 MEQ in WATER FOR INJECTION 1 100ML.BAG IVPB SCH (19:08)
[2023-06-30 23:09] LABS: African American GFR (CKD) 4 (>60 ml/min/1.73 sqM); Anion Gap 24 mmol/L; Chloride 102 mmol/L (98-107); Glucose 92 mg/dL (74-99); Non-African American GFR(CKD) 3 (>60 ml/min/1.73 sqM); Potassium 3.1 mmol/L (3.5-5.1); Sodium 134 mmol/L (137-145)
[2023-06-30] MEDS: FAMOTIDINE 20 MG TAB PO SCH (23:17)
[2023-06-30 23:33] LABS: Carbon Dioxide 8 mmol/L (22-30)
[2023-06-30 23:34] LABS: Blood Urea Nitrogen 195 mg/dL (7-17); Calcium 6.2 mg/dL (8.4-10.2)
[2023-07-01] MEDS ORDERED: Potassium Replacement Protocol 1 EACH MISC MISCELLANE PRN (01:56)
[2023-07-01 03:51] LABS: Ionized Calcium 3.5 mg/dL (4.5-5.3)
[2023-07-01 03:54] LABS: Basophils % (A) 0 %; Eosinophils % (A) 0 %; HCT 34.6 % (34.0-46.0); HGB 11.4 gm/dL (11.4-16.0); Lymphocytes # (A) 0.7 k/uL (1.0-4.8); Lymphocytes % (A) 6 %; MCH 30.7 pg (25.0-35.0); MCHC 33.1 g/dL (31.0-37.0); MCV 92.9 fL (80.0-100.0); Mean Platelet Volume 8.7; Monocytes # (A) 0.4 k/uL (0-1.0); Monocytes % (A) 3 %; Neutrophils # (A) 10.7 k/uL (1.3-7.7); Neutrophils % (A) 90 %; Platelet Count 173 k/uL (150-450); RBC 3.73 m/uL (3.80-5.40); RDW 15.5 % (11.5-15.5)
[2023-07-01 03:56] LABS: ALT 17 U/L (4-34); AST 35 U/L (14-36); African American GFR (CKD) 4 (>60 ml/min/1.73 sqM); Albumin 2.8 g/dL (3.5-5.0); Alkaline Phosphatase 59 U/L (38-126); Anion Gap 22 mmol/L; Carbon Dioxide 10 mmol/L (22-30); Chloride 100 mmol/L (98-107); Glucose 117 mg/dL (74-99); Magnesium 1.6 mg/dL (1.6-2.3); Non-African American GFR(CKD) 3 (>60 ml/min/1.73 sqM); Phosphorus 8.1 mg/dL (2.5-4.5); Potassium 3.2 mmol/L (3.5-5.1); Sodium 132 mmol/L (137-145); Total Bilirubin 0.3 mg/dL (0.2-1.3); Total Protein 5.6 g/dL (6.3-8.2)
[2023-07-01 04:49] LABS: Blood Urea Nitrogen 200 mg/dL (7-17)
[2023-07-01 04:51] LABS: Calcium 5.9 mg/dL (8.4-10.2)
[2023-07-01] MEDS: MULTIVITAMINS, THERA 1 EACH TAB PO SCH (08:43)
[2023-07-01] MEDS: LEVOTHYROXINE 75 MCG TAB PO SCH (08:59)
[2023-07-01] MEDS: CALCIUM GLUCONATE IN NACL 2 GM in SALINE 1 100ML.BAG IVPB ONE (10:10)
--- NOTE | 2023-07-01 11:01 | P.PN ---
Subjective Progress Note Date: 07/01/23 Patient seen in follow-up for FELIX. No acute events over night. Patient remains confused. Vital signs are stable. General: No acute distress. HEENT: Head exam is unremarkable. LUNGS: No audible rhonchi or wheezes. HEART: Rate and Rhythm are regular. ABDOMEN: Nontender. EXTREMITITES: no edema. Objective - Vital Signs Vital signs: Vital Signs Temp 97.6 F 07/01/23 05:39 Pulse 83 07/01/23 08:20 Resp 16 07/01/23 08:20 BP 119/70 07/01/23 08:20 Pulse Ox 94 L 07/01/23 08:20 FiO2 Intake & Output 06/30/23 07/01/23 07/01/23 18:59 06:59 18:59 Weight 45.359 kg - Labs CBC & Chem 7: 07/01/23 03:14 07/01/23 03:14 Labs: Abnormal Lab Results - Last 24 Hours (Table) 06/30/23 06/30/23 06/30/23 Range/Units 10:30 10:43 10:43 WBC 12.1 H (3.8-10.6) k/uL RBC (3.80-5.40) m/uL Neutrophils # 10.5 H (1.3-7.7) k/uL Lymphocytes # 0.9 L (1.0-4.8) k/uL APTT 31.5 H (22.0-30.0) sec Sodium (137-145) mmol/L Potassium (3.5-5.1) mmol/L Carbon Dioxide (22-30) mmol/L BUN (7-17) mg/dL Creatinine (0.52-1.04) mg/dL Glucose (74-99) mg/dL Plasma Lactic Acid Zack (0.7-2.0) mmol/L Calcium (8.4-10.2) mg/dL Ionized Calcium Steffanie (4.5-5.3) mg/dL Phosphorus (2.5-4.5) mg/dL Total Protein (6.3-8.2) g/dL Albumin (3.5-5.0) g/dL Procalcitonin (0.02-0.09) ng/mL Urine Appearance Turbid H (Clear) Urine Protein 2+ H (Negative) Urine Blood Small H (Negative) Ur Leukocyte Esterase Large H (Negative) Urine RBC 56 H (0-5) /hpf Urine WBC >182 H (0-5) /hpf Urine WBC Clumps Many H (None) /hpf Ur Squamous Epith Cells 13 H (0-4) /hpf Urine Bacteria Moderate H (None) /hpf Influenza Type A (PCR) (Not Detectd) 06/30/23 06/30/23 06/30/23 Range/Units 10:43 10:43 10:43 WBC (3.8-10.6) k/uL RBC (3.80-5.40) m/uL Neutrophils # (1.3-7.7) k/uL Lymphocytes # (1.0-4.8) k/uL APTT (22.0-30.0) sec Sodium 133 L (137-145) mmol/L Potassium 3.4 L (3.5-5.1) mmol/L Carbon Dioxide <5 L* (22-30) mmol/L BUN 203 H* (7-17) mg/dL Creatinine 10.46 H* (0.52-1.04) mg/dL Glucose 123 H (74-99) mg/dL Plasma Lactic Acid Zack 0.6 L (0.7-2.0) mmol/L Calcium 6.0 L* (8.4-10.2) mg/dL Ionized Calcium Steffanie (4.5-5.3) mg/dL Phosphorus (2.5-4.5) mg/dL Total Protein (6.3-8.2) g/dL Albumin (3.5-5.0) g/dL Procalcitonin (0.02-0.09) ng/mL Urine Appearance (Clear) Urine Protein (Negative) Urine Blood (Negative) Ur Leukocyte Esterase (Negative) Urine RBC (0-5) /hpf Urine WBC (0-5) /hpf Urine WBC Clumps (None) /hpf Ur Squamous Epith Cells (0-4) /hpf Urine Bacteria (None) /hpf Influenza Type A (PCR) Detected A (Not Detectd) 06/30/23 06/30/23 07/01/23 Range/Units 10:43 22:41 03:14 WBC 12.0 H (3.8-10.6) k/uL RBC 3.73 L (3.80-5.40) m/uL Neutrophils # 10.7 H (1.3-7.7) k/uL Lymphocytes # 0.7 L (1.0-4.8) k/uL APTT (22.0-30.0) sec Sodium 134 L (137-145) mmol/L Potassium 3.1 L (3.5-5.1) mmol/L Carbon Dioxide 8 L* (22-30) mmol/L BUN 195 H* (7-17) mg/dL Creatinine 9.71 H* (0.52-1.04) mg/dL Glucose (74-99) mg/dL Plasma Lactic Acid Zack (0.7-2.0) mmol/L Calcium 6.2 L* (8.4-10.2) mg/dL Ionized Calcium Steffanie (4.5-5.3) mg/dL Phosphorus (2.5-4.5) mg/dL Total Protein (6.3-8.2) g/dL Albumin (3.5-5.0) g/dL Procalcitonin 1.68 H (0.02-0.09) ng/mL Urine Appearance (Clear) Urine Protein (Negative) Urine Blood (Negative) Ur Leukocyte Esterase (Negative) Urine RBC (0-5) /hpf Urine WBC (0-5) /hpf Urine WBC Clumps (None) /hpf Ur Squamous Epith Cells (0-4) /hpf Urine Bacteria (None) /hpf Influenza Type A (PCR) (Not Detectd) 07/01/23 Range/Units 03:14 WBC (3.8-10.6) k/uL RBC (3.80-5.40) m/uL Neutrophils # (1.3-7.7) k/uL Lymphocytes # (1.0-4.8) k/uL APTT (22.0-30.0) sec Sodium 132 L (137-145) mmol/L Potassium 3.2 L (3.5-5.1) mmol/L Carbon Dioxide 10 L (22-30) mmol/L BUN 200 H* (7-17) mg/dL Creatinine 9.42 H* (0.52-1.04) mg/dL Glucose 117 H (74-99) mg/dL Plasma Lactic Acid Zack (0.7-2.0) mmol/L Calcium 5.9 L* (8.4-10.2) mg/dL Ionized Calcium Steffanie 3.5 L* (4.5-5.3) mg/dL Phosphorus 8.1 H (2.5-4.5) mg/dL Total Protein 5.6 L (6.3-8.2) g/dL Albumin 2.8 L (3.5-5.0) g/dL Procalcitonin (0.02-0.09) ng/mL Urine Appearance (Clear) Urine Protein (Negative) Urine Blood (Negative) Ur Leukocyte Esterase (Negative) Urine RBC (0-5) /hpf Urine WBC (0-5) /hpf Urine WBC Clumps (None) /hpf Ur Squamous Epith Cells (0-4) /hpf Urine Bacteria (None) /hpf Influenza Type A (PCR) (Not Detectd) Assessment and Plan Plan: Assessment: 1. Oliguric FELIX likely ATN from severe volume depletion. Previous baseline 1.2 (2020), most recent creatinine July 2022 2.0 mg/dL. Presented creatinine 10., nw 9.4 today. PVR negative. UA consistent with infection. Renal US atrophic right kidney no hydronephrosis. 2. CKD Stage 4, baseline creatinine possibly around 2.0 mg/dL GFR 23. 3. Severe dehydration. 4. Hypokalemia related to poor intake. 5. Severe AGMA related to FELIX 6. Hypocalcemia, corrected calcium 6.9. 7. Influenza A Plan: Continue bicarb drip at 125 cc/hr. Potassium supplementation, will worsen with bicarb drip. Will give additional 2g calcium gluconate IV Renal US ordered, strict I/O's No indication for emergent HD today, monitor daily.
--- NOTE | 2023-07-01 21:38 | HP ---
HISTORY AND PHYSICAL CHIEF COMPLAINT: Week-long history of nausea, vomiting, diarrhea, and influenza A. HISTORY OF PRESENT ILLNESS: This is another admission for this frail 87-year-old white female. She has a long- standing history of GI issues and does follow with Gastroenterology. She apparently started to have fever, chills, nausea, vomiting, and diarrhea about a week ago. She came to the office on the day of admission, where she was profoundly dehydrated and confused. Now, she is at the emergency room where she was found to be in acute renal failure. REVIEW OF SYSTEMS: Not easily obtained because of her delirium. Her simply states that she has been vomiting and had diarrhea all week and was not eating or drinking. She is already extremely frail with BNP of around 17. Past medical history, family history, personal and social history are all otherwise unremarkable and noncontributory at this point. Urinalysis demonstrates 2+ protein plus numerous rbcs and wbcs. Her calcium is low at 6 and her BUN is 203 with a creatinine of 10.46. GFR is 3. CO2 is less than 5. PHYSICAL EXAMINATION: VITAL SIGNS: She does have sinus tachycardia. GENERAL: She is pale. HEAD, EARS, EYES, NOSE, MOUTH AND THROAT: Normal except for dry mucous membranes. CHEST: Clear. CARDIAC: Demonstrates tachycardia. ABDOMEN: Soft and protuberant due to her large ventral hernia. There are no masses. EXTREMITIES: Normal. Neurologically, she is delirious. ASSESSMENT: She is admitted to the hospital with diagnosis of, 1. Profound dehydration. 2. Acute kidney injury (stage 5). 3. Urinary tract infection. 4. Influenza A. 5. Hypocalcemia. 6. Metabolic acidosis. PLAN: 1. Bedrest. 2. IV fluids. 3. Reestablished normal electrolytes. 4. Consult with Nephrology. MMODL / IJN: [id number] /
[2023-07-02] MEDS: IPRATROPIUM-ALBUTEROL 3 ML NEB INHALATION PRN (08:25)
--- NOTE | 2023-07-02 08:35 | XR ---
EXAMINATION TYPE: XR chest 1V portable DATE OF EXAM: 07/02/2023 8:24 AM CLINICAL INDICATION:Female, 87 years old with history of SOB; COMPARISON: Chest radiographs from 06/30/2023. TECHNIQUE: XR chest 1V portable Frontal view of the chest. FINDINGS: Lungs/Pleura: Right midlung streaky atelectasis. Similar prior. There is no evidence of pleural effus ion, focal consolidation, or pneumothorax. Pulmonary vascularity: Unremarkable. Heart/mediastinum: Cardiomediastinal silhouette is unremarkable. Atherosclerotic calcifications are seen in the aorta. Musculoskeletal: No acute osseous pathology. IMPRESSION: Stable exam, no acute cardiopulmonary disease/process.
--- NOTE | 2023-07-02 10:59 | PN ---
PROGRESS NOTE DATE OF SERVICE: 07/01/2023 In the emergency room in room 27. CHIEF COMPLAINT: Influenza A with nausea, vomiting, dehydration, and renal failure. HISTORY OF PRESENT ILLNESS: This lady is not significantly different. She is still confused, still very dehydrated. LABORATORY DATA: Laboratory studies have not changed a great deal. PHYSICAL EXAMINATION: CHEST: Clear. CARDIAC: Demonstrates tachycardia, at times looks like atrial fibrillation. ABDOMEN: Soft, nontender. Bowel sounds are present. IMPRESSION: 1. Profound dehydration. 2. Acute kidney injury. 3. Delirium. 4. Electrolyte imbalance. PLAN: 1. Await further recommendations from Nephrology. 2. Correct hypocalcemia. 3. Correct hypokalemia. MMODL / IJN: [id number] /
[2023-07-02 11:03] LABS: African American GFR (CKD) 5 (>60 ml/min/1.73 sqM); Anion Gap 17 mmol/L; Carbon Dioxide 31 mmol/L (22-30); Chloride 83 mmol/L (98-107); Glucose 179 mg/dL (74-99); Non-African American GFR(CKD) 4 (>60 ml/min/1.73 sqM); Sodium 131 mmol/L (137-145)
[2023-07-02] MEDS: FUROSEMIDE 10 MG/ML 10 ML VIAL IV STA (11:10)
[2023-07-02 11:28] LABS: Blood Urea Nitrogen 182 mg/dL (7-17); Calcium 5.3 mg/dL (8.4-10.2); Potassium 2.4 mmol/L (3.5-5.1)
--- NOTE | 2023-07-02 11:52 | P.PN ---
Subjective patient is seen for follow-up for acute kidney injury. tested positive for influenza A. Nursing staff reports worsening shortness of breath today. maintained on IV bicarb. Patient remains confused. No significant urine output documented. O2 sats 98% on 3 L nasal cannula. Objective - Vital Signs Vital signs: Vital Signs Temp 98.1 F 07/02/23 04:00 Pulse 90 07/02/23 08:42 Resp 30 H 07/02/23 08:00 BP 129/61 07/02/23 04:00 Pulse Ox 98 07/02/23 08:26 FiO2 Intake & Output 07/01/23 07/02/23 07/02/23 18:59 06:59 18:59 Weight 45.359 kg Other: Voiding Method Bedside Commode Bedside Commode # Bowel Movements 1 - Exam patient is confused. She is comfortable. No acute distress but tachypneic. Examination of the heart S1 and S2 Examination of the lungs decreased breath sounds at the bases Abdomen is soft nontender large ventral hernia noted Examination of lower extremities shows no significant edema. - Labs CBC & Chem 7: 07/01/23 03:14 07/02/23 10:16 Labs: Abnormal Lab Results - Last 24 Hours (Table) 07/02/23 Range/Units 10:16 Sodium 131 L (137-145) mmol/L Potassium 2.4 L* (3.5-5.1) mmol/L Chloride 83 L (98-107) mmol/L Carbon Dioxide 31 H (22-30) mmol/L BUN 182 H* (7-17) mg/dL Creatinine 8.25 H* (0.52-1.04) mg/dL Glucose 179 H (74-99) mg/dL Calcium 5.3 L* (8.4-10.2) mg/dL Microbiology - Last 24 Hours (Table) 06/30/23 10:31 Urine Culture - Final Urine,Voided 06/30/23 10:58 Blood Culture - Preliminary Blood 06/30/23 10:40 Blood Culture - Preliminary Blood Assessment and Plan Assessment: 1. Oliguric FELIX likely ATN from severe volume depletion. Previous baseline 1.2 (2020), most recent creatinine July 2022 2.0 mg/dL. Presented creatinine 10., now 8.2 today. PVR negative. UA consistent with infection. Renal US atrophic right kidney no hydronephrosis. Given the persistent confusion we will proceed with hemodialysis today. 2. CKD Stage 4, baseline creatinine possibly around 2.0 mg/dL GFR 23. 3. Severe dehydration. 4. Hypokalemia related to poor intake. 5. Severe AGMA related to FELIX 6. Hypocalcemia, corrected calcium 6.9. 7. Influenza A Plan: DC IV bicarb Replace potassium Consult vascular surgery for dialysis catheter placement and hemodialysis today. discussed with and patient. Has been is agreeable. Repeat labs in a.m.
[2023-07-02 12:47] LABS: Allen Test Performed? Yes
--- NOTE | 2023-07-02 12:47 | P.GSCN ---
History of Present Illness History of present illness: 87-year-old white [facility]. Patient is a acute kidney injury positive for influenza Whitis and also has a hypokalemia hypocalcemia BUN/creatinine is high plan is placement of a dialysis catheter Patient was seen in his room very restless check has a few crackles at the lung bases bilaterally abdomen soft nontender Vascular femorals are 1+ Plan is placement of a dialysis catheter risk and complication discussed Past Medical History Past Medical History: Blood Disorder, Deep Vein Thrombosis (DVT), Eye Disorder, GERD/Reflux, Thyroid Disorder Additional Past Medical History / Comment(s): History of recurrent DVTs, possible hypercoagulable state nontender the patient has been told to have a pins position for a blood clotting disorder, chronic pernicious anemia, cysto selin, hemorrhoids, abdominal wall hernia, thyroid nodules, osteoporosis, GERD, suspected Graves' disease, History of Any Multi-Drug Resistant Organisms: None Reported Past Surgical History: Cholecystectomy, Hysterectomy, Orthopedic Surgery Additional Past Surgical History / Comment(s): Colonoscopy; EGD; Cataracts thyroidectomy, hip repair Past Anesthesia/Blood Transfusion Reactions: No Reported Reaction Past Psychological History: No Psychological Hx Reported Smoking Status: Never smoker Past Alcohol Use History: None Reported Past Drug Use History: None Reported - Past Family History Mother Family Medical History: No Reported History Medications and Allergies Home Medications Medication Instructions Recorded Confirmed Type Omeprazole [PriLOSEC] 20 mg PO DAILY PRN 08/04/16 06/30/23 History Alendronate Sodium [Fosamax] 70 mg PO TH 07/07/22 06/30/23 History Multivitamin/Iron/Folic Acid 1 tab PO DAILY 07/07/22 06/30/23 History [Centrum Women Tablet] Cholecalciferol (Vitamin D3) 50 mcg PO QID 06/30/23 06/30/23 History [Vitamin D3 (50 Mcg = 2000 Iu)] Levothyroxine Sodium [Synthroid] 112.5 mcg PO DAILY 06/30/23 06/30/23 History Allergies Allergy/AdvReac Type Severity Reaction Status Date / Time calcitriol [From Rocaltrol] Allergy Rash/Hives Verified 06/30/23 11:51 latex Allergy Rash/Hives Verified 06/30/23 11:51 pneumococcal vaccine Allergy Unknown Verified 06/30/23 11:51 propoxyphene HCl Allergy Unknown Verified 06/30/23 11:51 [From Pedro] aspirin AdvReac Nausea & Verified 06/30/23 11:51 Vomiting codeine AdvReac Nausea & Verified 06/30/23 11:51 Vomiting Sulfa (Sulfonamide AdvReac Nausea & Verified 06/30/23 11:51 Antibiotics) Vomiting Surgical - Exam Vital Signs Temp Pulse Resp BP Pulse Ox 99 F 55 L 22 113/54 94 L 06/30/23 10:19 06/30/23 10:19 06/30/23 10:19 06/30/23 10:19 06/30/23 10:19 Results - Labs 07/01/23 03:14 07/02/23 10:16 Abnormal Lab Results - Last 24 Hours (Table) 07/02/23 Range/Units 10:16 Sodium 131 L (137-145) mmol/L Potassium 2.4 L* (3.5-5.1) mmol/L Chloride 83 L (98-107) mmol/L Carbon Dioxide 31 H (22-30) mmol/L BUN 182 H* (7-17) mg/dL Creatinine 8.25 H* (0.52-1.04) mg/dL Glucose 179 H (74-99) mg/dL Calcium 5.3 L* (8.4-10.2) mg/dL Microbiology - Last 24 Hours (Table) 06/30/23 10:31 Urine Culture - Final Urine,Voided 06/30/23 10:58 Blood Culture - Preliminary Blood 06/30/23 10:40 Blood Culture - Preliminary Blood Diabetes panel 07/02/23 Range/Units 10:16 Sodium 131 L (137-145) mmol/L Potassium 2.4 L* (3.5-5.1) mmol/L Chloride 83 L (98-107) mmol/L Carbon Dioxide 31 H (22-30) mmol/L BUN 182 H* (7-17) mg/dL Creatinine 8.25 H* (0.52-1.04) mg/dL Glucose 179 H (74-99) mg/dL Calcium 5.3 L* (8.4-10.2) mg/dL Calcium panel 07/02/23 Range/Units 10:16 Calcium 5.3 L* (8.4-10.2) mg/dL Pituitary panel 07/02/23 Range/Units 10:16 Sodium 131 L (137-145) mmol/L Potassium 2.4 L* (3.5-5.1) mmol/L Chloride 83 L (98-107) mmol/L Carbon Dioxide 31 H (22-30) mmol/L BUN 182 H* (7-17) mg/dL Creatinine 8.25 H* (0.52-1.04) mg/dL Glucose 179 H (74-99) mg/dL Calcium 5.3 L* (8.4-10.2) mg/dL Adrenal panel 07/02/23 Range/Units 10:16 Sodium 131 L (137-145) mmol/L Potassium 2.4 L* (3.5-5.1) mmol/L Chloride 83 L (98-107) mmol/L Carbon Dioxide 31 H (22-30) mmol/L BUN 182 H* (7-17) mg/dL Creatinine 8.25 H* (0.52-1.04) mg/dL Glucose 179 H (74-99) mg/dL Calcium 5.3 L* (8.4-10.2) mg/dL
[2023-07-02 12:48] LABS: ABG Base Excess 12.2 mmol/L; ABG HCO3 36 mmol/L (21-25); ABG PCO2 51 mmHg (35-45); ABG PH 7.46 (7.35-7.45); ABG PO2 81 mmHg (83-108); ABG TCO2 38 mmol/L (19-24)
[2023-07-02] MEDS: SODIUM CHLORIDE 0.9% 250 ML IV ONE (13:20)
[2023-07-02] MEDS: MIDAZOLAM 2 MG/2 ML VIAL IVP ONE (13:22)
[2023-07-02] MEDS: LIDOCAINE 1% INJ 10MG/ML (20 ML MDV) SQ ONE (13:23)
[2023-07-02] MEDS ORDERED: HEPARIN SODIUM 1,000 UN/ML (10ML VL) ONE (13:27)
--- NOTE | 2023-07-02 13:54 | P.PN ---
Progress Note - Text Pre-op diagnosis acute chronic renal failure Postop same Procedure ultrasound guided 20 cm dialysis catheter placed left medial approach patient brought to the [facility] left groin was prepped and draped in Prestel manner 1% lidocaine was infiltrated with IV sedation ultrasound-guided micropuncture introduced left femoral vein micropuncture guide was passed and 4 point directed out of the guidewire. Then we passed the regular guidewire which was parked in the inferior vena cava dilators were advanced up the guidewire then we placed dialysis catheter top of the guidewire guidewire was removed flushed with heparin saline hep-locked secured with 3-0 nylon dressing applied. Patient tolerated the procedure well
[2023-07-02] MEDS: methylPREDNISolone SOD SUCCI 125 MG/2 ML VIAL IV SCH (14:09)
--- NOTE | 2023-07-02 14:09 | IR ---
EXAMINATION TYPE: IR cvc insert non tunneled DATE OF EXAM: 07/02/2023 COMPARISON: NONE HISTORY: Fluoroscopy time. Fluoroscopy was provided to the referring clinician.
[2023-07-02] MEDS ORDERED: POTASSIUM CHLORIDE 20 MEQ in WATER FOR INJECTION 1 100ML.BAG IVPB SCH (14:45)
[2023-07-02] MEDS ORDERED: Magnesium Replacement Protocol 1 EACH MISC MISCELLANE PRN (14:53)
[2023-07-02] MEDS: POTASSIUM CHLORIDE ER 20 MEQ TAB.ER PO SCH (15:01)
[2023-07-02] MEDS: POTASSIUM BICARBONATE/CIT AC 20 MEQ TABLET.EFF PO SCH (15:01)
[2023-07-02] MEDS: MAGNESIUM SULFATE-D5W PMX 1 GM in DEXTROSE/WATER 1 100ML.BAG IVPB SCH (15:17)
--- NOTE | 2023-07-02 15:38 | P.CNPUL ---
History of Present Illness Consult date: 07/02/23 Chief complaint: FELIX and acute influenza A infection. History of present illness: This is an 87-year-old female patient came into the emergency department, feeling well for the past 1 week and lethargic and short of breath. No nausea or emesis. Yet the patient was having diminished oral intake. She does have underlying dementia and she is a very poor historian. The patient carries a previous history of recurrent DVTs with possibly an underlying hypercoagulable state and the patient has not been receiving any form of anticoagulation on outpatient basis. In the emergency department, the patient was found to be in acute kidney injury. The BUN was at 2 or 3 with a creatinine of 10.4. Sodium levels at 133. WBC count was at 12.1 with hemoglobin 12.8 and a platelet count of 196. Coagulation profile was normal. UA showed multiple WBCs more than 182 was 56 RBCs and many clumps of white cells and moderate amount of bacteria and the patient also tested positive for influenza A. The patient was started on IV fluids. Creatinine this morning is down to 8.25 with a BUN of 182. Sodium level is at 131. The patient's chest x-ray showed n diffuse interstitial markings bilaterally consistent with atypical/viral pneumonia and some areas of bandlike atelectasis bilaterally. The patient is currently on oxygen at 3 L with a pulse ox of 98%. She is bronchospastic and wheezy. She was started on Tamiflu. Blood gas was done on the medical floor and the patient was found to have a pH of 7.46 with a pCO2 of 51 and pO2 of 81. Nephrology on the case. The patient is currently on IV fluids and she was started on bicarb infusion and the follow-up bicarb level from this morning is up to 31. Nephrology has been consulted regarding his acute kidney injury. Based on the absence of any significant urine output with fluids, vascular surgery was consulted for dialysis access. Calcium level is at 6.9. The patient has a baseline chronic stage IV kidney disease with a creatinine of 2.0 from July 2022. Review of Systems ROS unobtainable: due to mental status Past Medical History Past Medical History: Blood Disorder, Deep Vein Thrombosis (DVT), Eye Disorder, GERD/Reflux, Renal Disease, Thyroid Disorder Additional Past Medical History / Comment(s): History of recurrent DVTs, possible hypercoagulable state nontender the patient has been told to have a pins position for a blood clotting disorder, chronic pernicious anemia, cystocele, hemorrhoids, abdominal wall hernia, thyroid nodules, osteoporosis, GERD, suspected Graves' disease, History of Any Multi-Drug Resistant Organisms: None Reported Past Surgical History: Cholecystectomy, Hysterectomy, Orthopedic Surgery Additional Past Surgical History / Comment(s): Colonoscopy; EGD; Cataracts thyro idectomy, hip repair Past Anesthesia/Blood Transfusion Reactions: No Reported Reaction Past Psychological History: No Psychological Hx Reported Smoking Status: Never smoker Past Alcohol Use History: None Reported Past Drug Use History: None Reported - Past Family History Mother Family Medical History: No Reported History Medications and Allergies Home Medications Medication Instructions Recorded Confirmed Type Omeprazole [PriLOSEC] 20 mg PO DAILY PRN 08/04/16 06/30/23 History Alendronate Sodium [Fosamax] 70 mg PO TH 07/07/22 06/30/23 History Multivitamin/Iron/Folic Acid 1 tab PO DAILY 07/07/22 06/30/23 History [Centrum Women Tablet] Cholecalciferol (Vitamin D3) 50 mcg PO QID 06/30/23 06/30/23 History [Vitamin D3 (50 Mcg = 2000 Iu)] Levothyroxine Sodium [Synthroid] 112.5 mcg PO DAILY 06/30/23 06/30/23 History Allergies Allergy/AdvReac Type Severity Reaction Status Date / Time calcitriol [From Rocaltrol] Allergy Rash/Hives Verified 06/30/23 11:51 latex Allergy Rash/Hives Verified 06/30/23 11:51 pneumococcal vaccine Allergy Unknown Verified 06/30/23 11:51 propoxyphene HCl Allergy Unknown Verified 06/30/23 11:51 [From Darvon] aspirin AdvReac Nausea & Verified 06/30/23 11:51 Vomiting codeine AdvReac Nausea & Verified 06/30/23 11:51 Vomiting Sulfa (Sulfonamide AdvReac Nausea & Verified 06/30/23 11:51 Antibiotics) Vomiting Physical Exam Vitals: Vital Signs Temp Pulse Pulse Resp BP BP Pulse Ox 07/02/23 14:30 90 22 07/02/23 12:00 90 28 H 144/75 97 07/02/23 08:42 90 07/02/23 08:26 88 98 04/29/24 08:00 54 L 30 H 07/02/23 04:00 98.1 F 54 L 19 129/61 92 L 07/02/23 00:00 98.5 F 87 19 133/64 92 L 07/01/23 20:00 98.2 F 93 19 135/68 94 L 07/01/23 16:35 89 14 151/70 96 07/01/23 16:00 92 16 133/70 96 Intake and Output 07/02/23 07/02/23 07/02/23 06:59 14:59 22:59 Output Total 30 Balance -30 Output: Urine 30 Other: Voiding Method Bedside Commode External Catheter # Bowel Movements 1 Weight 45.359 kg Patient is lethargic, debilitated with a body mass index of 18.9 with mild degree of respiratory distress currently on 3 L Head exam was generally normal. There was no scleral icterus or corneal arcus. Mucous membranes were moist. Neck was supple and without jugular venous distension, thyromegaly, or carotid bruits. Carotids were easily palpable bilaterally. There was no adenopathy. Lung sounds are diminished bilaterally and the patient is Very wheezes throughout the lung stallings and scattered rhonchi Cardiac exam revealed the PMI to be normally situated and sized. The rhythm was regular and no extrasystoles were noted during several minutes of auscultation. The first and second heart sounds were normal and physiologic splitting of the second heart sound was noted. There were no murmurs, rubs, clicks, or gallops. Abdominal exam revealed normal bowel sounds. The abdomen was soft, non-tender, and without masses, organomegaly, or appreciable enlargement of the abdominal aorta.. Large abdominal wall hernia noted, easily reducible. Examination of the extremities revealed easily palpable radial, femoral and pedal pulses. There was no cyanosis, clubbing or edema. Skin is dry without any ulceration and mucous membranes are also dry Neurologically the patient is moving all 4 extremities. The patient encephalopathic. No focal neurological deficits. Results - Laboratory Findings CBC and BMP: 07/01/23 03:14 07/02/23 10:16 ABG ABG pH 7.46 (7.35-7.45) H 07/02/23 12:06 ABG pCO2 51 mmHg (35-45) H 07/02/23 12:06 ABG pO2 81 mmHg (83-108) L 07/02/23 12:06 ABG O2 Saturation 96.0 % (94-97) 07/02/23 12:06 PT/INR, D-dimer PT 10.7 sec (10.0-12.5) 06/30/23 10:43 INR 1.0 (<1.2) 06/30/23 10:43 Abnormal lab findings: Abnormal Labs 06/30/23 06/30/23 06/30/23 10:30 10:43 10:43 WBC 12.1 H RBC Neutrophils # 10.5 H Lymphocytes # 0.9 L APTT 31.5 H ABG pH ABG pCO2 ABG pO2 ABG HCO3 ABG Total CO2 Sodium Potassium Chloride Carbon Dioxide BUN Creatinine Glucose Plasma Lactic Acid Zack Calcium Ionized Calcium Steffanie Phosphorus Magnesium Total Protein Albumin Procalcitonin Urine Appearance Turbid H Urine Protein 2+ H Urine Blood Small H Ur Leukocyte Esterase Large H Urine RBC 56 H Urine WBC >182 H Urine WBC Clumps Many H Ur Squamous Epith Cells 13 H Urine Bacteria Moderate H Influenza Type A (PCR) 06/30/23 06/30/23 06/30/23 10:43 10:43 10:43 WBC RBC Neutrophils # Lymphocytes # APTT ABG pH ABG pCO2 ABG pO2 ABG HCO3 ABG Total CO2 Sodium 133 L Potassium 3.4 L Chloride Carbon Dioxide <5 L* BUN 203 H* Creatinine 10.46 H* Glucose 123 H Plasma Lactic Acid Zack 0.6 L Calcium 6.0 L* Ionized Calcium Steffanie Phosphorus Magnesium Total Protein Albumin Procalcitonin Urine Appearance Urine Protein Urine Blood Ur Leukocyte Esterase Urine RBC Urine WBC Urine WBC Clumps Ur Squamous Epith Cells Urine Bacteria Influenza Type A (PCR) Detected A 06/30/23 06/30/23 07/01/23 10:43 22:41 03:14 WBC 12.0 H RBC 3.73 L Neutrophils # 10.7 H Lymphocytes # 0.7 L APTT ABG pH ABG pCO2 ABG pO2 ABG HCO3 ABG Total CO2 Sodium 134 L Potassium 3.1 L Chloride Carbon Dioxide 8 L* BUN 195 H* Creatinine 9.71 H* Glucose Plasma Lactic Acid Zack Calcium 6.2 L* Ionized Calcium Steffanie Phosphorus Magnesium Total Protein Albumin Procalcitonin 1.68 H Urine Appearance Urine Protein Urine Blood Ur Leukocyte Esterase Urine RBC Urine WBC Urine WBC Clumps Ur Squamous Epith Cells Urine Bacteria Influenza Type A (PCR) 07/01/23 07/02/23 07/02/23 03:14 10:16 10:16 WBC RBC Neutrophils # Lymphocytes # APTT ABG pH ABG pCO2 ABG pO2 ABG HCO3 ABG Total CO2 Sodium 132 L 131 L Potassium 3.2 L 2.4 L* Chloride 83 L Carbon Dioxide 10 L 31 H BUN 200 H* 182 H* Creatinine 9.42 H* 8.25 H* Glucose 117 H 179 H Plasma Lactic Acid Zack Calcium 5.9 L* 5.3 L* Ionized Calcium Steffanie 3.5 L* Phosphorus 8.1 H Magnesium 1.4 L Total Protein 5.6 L Albumin 2.8 L Procalcitonin Urine Appearance Urine Protein Urine Blood Ur Leukocyte Esterase Urine RBC Urine WBC Urine WBC Clumps Ur Squamous Epith Cells Urine Bacteria Influenza Type A (PCR) 07/02/23 12:06 WBC RBC Neutrophils # Lymphocytes # APTT ABG pH 7.46 H ABG pCO2 51 H ABG pO2 81 L ABG HCO3 36 H ABG Total CO2 38 H Sodium Potassium Chloride Carbon Dioxide BUN Creatinine Glucose Plasma Lactic Acid Zack Calcium Ionized Calcium Steffanie Phosphorus Magnesium Total Protein Albumin Procalcitonin Urine Appearance Urine Protein Urine Blood Ur Leukocyte Esterase Urine RBC Urine WBC Urine WBC Clumps Ur Squamous Epith Cells Urine Bacteria Influenza Type A (PCR) - Diagnostic Findings Chest x-ray: image reviewed Assessment and Plan Plan: Acute influenza A infection, initial diagnosis was made in the residential 5 days ago. Acute hypoxic respiratory failure, currently on 3 L O2 nasal cannula along with interstitial pulm infiltrates consistent with a viral pneumonia Acute COPD exacerbation secondary to above Acute on chronic kidney disease. The patient has a baseline stage IV kidney disease and the patient presented with acute kidney injury, likely secondary to vascular volume depletion and dehydration and the patient is not producing any urine output despite fluid resuscitation. Acute metabolic acidosis secondary to above Chronic dementia Encephalopathy secondary to above Shortness of breath secondary to above Previous history of DVTs, currently on no anticoagulants History of pernicious anemia History of large abdominal wall hernia History of thyroid nodules Osteoporosis Questionable hypercoagulable state and clotting disorder Hypothyroidism maintained on Synthroid Electrolyte disturbances secondary to above including hypokalemia and hypocalcemia Plan Continue with IV fluids Vascular access for hemodialysis Possible hemodialysis today Ultrasound of the kidneys Nephrology consultation Keep the patient on 3 L O2 nasal cannula and blood gases were noted Continue Tamiflu Continue bronchodilators Add IV Solu-Medrol 60 mg per 6 hours Established CODE STATUS We will continue to follow
[2023-07-02] MEDS: LORazepam 2 MG/ML INJ IV PRN (17:21)
[2023-07-02] MEDS: POTASSIUM CHLORIDE 20 MEQ in WATER FOR INJECTION 1 100ML.BAG IVPB SCH (17:50)
[2023-07-02 19:53] LABS: Glucose,Whole Blood 143 mg/dL (70-110)
[2023-07-02 20:21] LABS: Glucose,Whole Blood 132 mg/dL (70-110)
[2023-07-02] MEDS: DEXMEDETOMIDINE/0.9% NACL(PMX) 400 MCG in EMPTY BAG 1 BAG IV SCH (21:05)
--- NOTE | 2023-07-02 21:05 | XR ---
EXAMINATION TYPE: XR chest 1V portable DATE OF EXAM: 07/02/2023 8:44 PM CLINICAL INDICATION:Female, 87 years old with history of Resp distress; [facility] COMPARISON: Chest radiographs from 07/02/2023 TECHNIQUE: XR chest 1V portable Frontal view of the chest. FINDINGS: Lungs/Pleura: Right midlung airspace streaky opacities. There is no evidence of pleural effusion, foc al consolidation, or pneumothorax. Pulmonary vascularity: Unremarkable. Heart/mediastinum: Cardiomediastinal silhouette is unremarkable. Atherosclerotic calcifications are seen in the aorta. Musculoskeletal: No acute osseous pathology. IMPRESSION: No significant change from prior. Correlate with serum BNP for component of congestive heart failure.
[2023-07-02 21:14] LABS: ALT 34 U/L (4-34); AST 82 U/L (14-36); African American GFR (CKD) 9 (>60 ml/min/1.73 sqM); Alkaline Phosphatase 77 U/L (38-126); Anion Gap 12 mmol/L; Blood Urea Nitrogen 74 mg/dL (7-17); Carbon Dioxide 27 mmol/L (22-30); Chloride 91 mmol/L (98-107); Glucose 135 mg/dL (74-99); Magnesium 2.2 mg/dL (1.6-2.3); Non-African American GFR(CKD) 8 (>60 ml/min/1.73 sqM); Phosphorus 5.6 mg/dL (2.5-4.5); Potassium 3.2 mmol/L (3.5-5.1); Sodium 130 mmol/L (137-145); Total Bilirubin 0.3 mg/dL (0.2-1.3); Total Protein 5.7 g/dL (6.3-8.2)
[2023-07-02 21:29] LABS: Calcium 6.3 mg/dL (8.4-10.2)
[2023-07-02 22:23] LABS: Hepatitis B Surface Antigen Nonreactive (Nonreactive)
[2023-07-02 22:24] LABS: Hepatitis B Surface AB- Quant 3.5 mIU/mL
[2023-07-02] MEDS: CALCIUM GLUCONATE IN NACL 1 GM in SALINE 1 100ML.BAG IVPB ONE (23:17)
[2023-07-03 00:59] LABS: ABG Base Excess 2.1 mmol/L; ABG HCO3 27 mmol/L (21-25); ABG Oxygen Saturation 98.5 % (94-97); ABG PCO2 47 mmHg (35-45); ABG PH 7.37 (7.35-7.45); ABG PO2 340 mmHg (83-108); ABG TCO2 29 mmol/L (19-24); Allen Test Performed? Yes
[2023-07-03 05:23] LABS: Glucose,Whole Blood 103 mg/dL (70-110)
[2023-07-03 06:23] LABS: Basophils % (A) 0 %; Eosinophils % (A) 0 %; HCT 32.9 % (34.0-46.0); HGB 10.6 gm/dL (11.4-16.0); Lymphocytes # (A) 0.3 k/uL (1.0-4.8); Lymphocytes % (A) 7 %; MCH 29.9 pg (25.0-35.0); MCHC 32.1 g/dL (31.0-37.0); MCV 92.9 fL (80.0-100.0); Mean Platelet Volume 8.4; Monocytes # (A) 0.1 k/uL (0-1.0); Monocytes % (A) 3 %; Neutrophils # (A) 3.6 k/uL (1.3-7.7); Neutrophils % (A) 89 %; Platelet Count 163 k/uL (150-450); RBC 3.55 m/uL (3.80-5.40); RDW 15.1 % (11.5-15.5)
[2023-07-03 06:56] LABS: African American GFR (CKD) 7 (>60 ml/min/1.73 sqM); Anion Gap 14 mmol/L; Blood Urea Nitrogen 81 mg/dL (7-17); Carbon Dioxide 22 mmol/L (22-30); Chloride 96 mmol/L (98-107); Glucose 96 mg/dL (74-99); Magnesium 2.1 mg/dL (1.6-2.3); Non-African American GFR(CKD) 6 (>60 ml/min/1.73 sqM); Potassium 3.6 mmol/L (3.5-5.1); Sodium 132 mmol/L (137-145)
[2023-07-03 07:01] LABS: Calcium 6.4 mg/dL (8.4-10.2)
--- NOTE | 2023-07-03 07:44 | PN ---
PROGRESS NOTE DATE OF SERVICE: 06/30/2023 CHIEF COMPLAINT: Acute kidney injury, hypocalcemia, influenza A. HISTORY OF PRESENT ILLNESS: This lady is doing poorly. She is confused. She is still very dehydrated. She has been seen by Nephrology. Her GFR would measure out at 3. PHYSICAL EXAMINATION: GENERAL: She is pale, dehydrated, weak and confused. CHEST: Clear. CARDIAC: Demonstrates sinus tachycardia. At times, it looks like she is in atrial fibrillation. ABDOMEN: Nontender. IMPRESSION: 1. Influenza A. 2. Profound dehydration. 3. Acute kidney injury. 4. Delirium. PLAN: Continue with rehydration and await recommendations from Nephrology. She may require dialysis. MMODL / IJN: [id number] /
--- NOTE | 2023-07-03 08:03 | PN ---
PROGRESS NOTE DATE OF SERVICE: 07/02/2023 CHIEF COMPLAINT: Acute kidney injury with dehydration and influenza. HISTORY OF PRESENT ILLNESS: This lady continues to struggle. She is very agitated and confused. She remains very dehydrated. Renal function is just about the same. Magnesium, calcium, potassium, as well as sodium are all abnormal. PHYSICAL EXAMINATION: LUNGS: She has good breath sounds bilaterally. CARDIAC: Reveals sinus tachycardia. GENERAL: She is weak, pale and dehydrated and very confused. IMPRESSION: 1. Acute kidney injury. 2. Influenza A. 3. Dehydration. 4. Delirium. PLAN: Repeat laboratory studies and continue with IV fluids. She should be dialyzed. MMODL / IJN: [id number] /
--- NOTE | 2023-07-03 10:52 | P.PN ---
Subjective patient is seen for follow-up for acute kidney injury. tested positive for influenza A. Started hemodialysis on 07/02/2023 for confusion in the setting of advanced acute kidney injury. UF 1.2 L yesterday. Patient remains confused. No significant urine output documented. maintained on BiPAP. Objective - Vital Signs Vital signs: Vital Signs Temp 97.6 F 07/03/23 09:00 Pulse 82 07/03/23 09:00 Resp 25 H 07/03/23 09:00 BP 117/72 07/03/23 09:00 Pulse Ox 98 07/03/23 09:00 FiO2 50 07/03/23 09:00 Intake & Output 07/02/23 07/03/23 07/03/23 18:59 06:59 18:59 Intake Total 400 350 60 Output Total 1230 0 0 Balance -830 350 60 Weight 45.359 kg 44.6 kg Intake: IV 10 0.9 NS @ KVO 10 Intake, IV Titration 350 50 Amount Calcium Gluconate in NaCl 100 1 gm In Saline 1 100ml. bag @ 100 mls/hr IVPB ONCE ONE Rx#:[id number] Potassium Chloride 20 meq 200 In Water For Injection 1 100ml.bag @ 50 mls/hr IVPB Q2H [facility] Rx#: [id number] cefTRIAXone 1 gm In 50 50 Sodium Chloride 0.9% 50 ml @ 100 mls/hr IVPB Q12HR [facility] Rx#:[id number] Hemodialysis 400 Output: Urine 30 0 0 Hemodialysis 1200 Other: Voiding Method External Catheter Incontinent Incontinent # Bowel Movements 1 1 - Exam patient is confused. Maintained on BiPAP. She is comfortable. No acute distress but tachypneic. Examination of the heart S1 and S2 Examination of the lungs decreased breath sounds at the bases Abdomen is soft nontender large ventral hernia noted Examination of lower extremities shows no significant edema. - Labs CBC & Chem 7: 07/03/23 05:40 07/03/23 05:40 Labs: Abnormal Lab Results - Last 24 Hours (Table) 07/02/23 07/02/23 07/02/23 Range/Units 10:16 10:16 12:06 RBC (3.80-5.40) m/uL Hgb (11.4-16.0) gm/dL Hct (34.0-46.0) % Lymphocytes # (1.0-4.8) k/uL ABG pH 7.46 H (7.35-7.45) ABG pCO2 51 H (35-45) mmHg ABG pO2 81 L (83-108) mmHg ABG HCO3 36 H (21-25) mmol/L ABG Total CO2 38 H (19-24) mmol/L ABG O2 Saturation (94-97) % Sodium 131 L (137-145) mmol/L Potassium 2.4 L* (3.5-5.1) mmol/L Chloride 83 L (98-107) mmol/L Carbon Dioxide 31 H (22-30) mmol/L BUN 182 H* (7-17) mg/dL Creatinine 8.25 H* (0.52-1.04) mg/dL Glucose 179 H (74-99) mg/dL POC Glucose (mg/dL) (70-110) mg/dL Calcium 5.3 L* (8.4-10.2) mg/dL Phosphorus (2.5-4.5) mg/dL Magnesium 1.4 L (1.6-2.3) mg/dL AST (14-36) U/L Total Protein (6.3-8.2) g/dL Albumin (3.5-5.0) g/dL 07/02/23 07/02/23 07/02/23 Range/Units 19:50 20:20 20:37 RBC (3.80-5.40) m/uL Hgb (11.4-16.0) gm/dL Hct (34.0-46.0) % Lymphocytes # (1.0-4.8) k/uL ABG pH (7.35-7.45) ABG pCO2 (35-45) mmHg ABG pO2 (83-108) mmHg ABG HCO3 (21-25) mmol/L ABG Total CO2 (19-24) mmol/L ABG O2 Saturation (94-97) % Sodium 130 L (137-145) mmol/L Potassium 3.2 L (3.5-5.1) mmol/L Chloride 91 L (98-107) mmol/L Carbon Dioxide (22-30) mmol/L BUN 74 H (7-17) mg/dL Creatinine 4.52 H (0.52-1.04) mg/dL Glucose 135 H (74-99) mg/dL POC Glucose (mg/dL) 143 H 132 H (70-110) mg/dL Calcium 6.3 L* (8.4-10.2) mg/dL Phosphorus 5.6 H (2.5-4.5) mg/dL Magnesium (1.6-2.3) mg/dL AST 82 H (14-36) U/L Total Protein 5.7 L (6.3-8.2) g/dL Albumin 3.0 L (3.5-5.0) g/dL 07/03/23 07/03/23 07/03/23 Range/Units 00:55 05:40 05:40 RBC 3.55 L (3.80-5.40) m/uL Hgb 10.6 L (11.4-16.0) gm/dL Hct 32.9 L (34.0-46.0) % Lymphocytes # 0.3 L (1.0-4.8) k/uL ABG pH (7.35-7.45) ABG pCO2 47 H (35-45) mmHg ABG pO2 340 H (83-108) mmHg ABG HCO3 27 H (21-25) mmol/L ABG Total CO2 29 H (19-24) mmol/L ABG O2 Saturation 98.5 H (94-97) % Sodium 132 L (137-145) mmol/L Potassium (3.5-5.1) mmol/L Chloride 96 L (98-107) mmol/L Carbon Dioxide (22-30) mmol/L BUN 81 H (7-17) mg/dL Creatinine 5.64 H (0.52-1.04) mg/dL Glucose (74-99) mg/dL POC Glucose (mg/dL) (70-110) mg/dL Calcium 6.4 L* (8.4-10.2) mg/dL Phosphorus (2.5-4.5) mg/dL Magnesium (1.6-2.3) mg/dL AST (14-36) U/L Total Protein (6.3-8.2) g/dL Albumin (3.5-5.0) g/dL Microbiology - Last 24 Hours (Table) 06/30/23 10:58 Blood Culture - Preliminary Blood 06/30/23 10:40 Blood Culture - Preliminary Blood 06/30/23 10:31 Urine Culture - Final Urine,Voided Assessment and Plan Assessment: 1. Oliguric FELIX likely ATN from severe volume depletion and hypotension. Previous baseline 1.2 (2020), most recent creatinine July 2022 2.0 mg/dL. Presented creatinine 10., now 8.2 today. PVR negative. UA consistent with infection. Renal US atrophic right kidney no hydronephrosis. Given the persistent confusion patient was started on dialysis on 07/02/2023 2. CKD Stage 4, baseline creatinine possibly around 2.0 mg/dL GFR 23. 3. Severe dehydration. 4. Hypokalemia related to poor intake. 5. Severe AGMA related to FELIX 6. Hypocalcemia, corrected calcium 6.9. 7. Influenza A Plan: repeat hemodialysis today Insert Payton catheter Continue Tamiflu and empiric antibiotics along with IV steroids as per pulmonary.
[2023-07-03] MEDS: ZINC OXIDE PASTE (Z-GUARD) 1 APPLIC TOPICAL PRN (11:45)
--- NOTE | 2023-07-03 12:38 | XR ---
EXAMINATION TYPE: XR chest 1V portable DATE OF EXAM: 07/03/2023 COMPARISON: 07/02/2023 INDICATION: Interstitial infiltrates TECHNIQUE: Single frontal view of the chest is obtained. FINDINGS: The heart size is normal. The pulmonary vasculature is normal. Mild infiltrates in the left midlung. Some linear opacity may be in the right perihilar region. IMPRESSION: 1. Developing left midlung infiltrate. Correlate for pneumonia. Follow-up is recommended.
--- NOTE | 2023-07-03 13:19 | P.PN ---
Subjective Progress Note Date: 07/03/23 This is an 87-year-old female patient came into the emergency department, feeling well for the past 1 week and lethargic and short of breath. No nausea or emesis. Yet the patient was having diminished oral intake. She does have underlying dementia and she is a very poor historian. The patient carries a previous history of recurrent DVTs with possibly an underlying hypercoagulable state and the patient has not been receiving any form of anticoagulation on outpatient basis. In the emergency department, the patient was found to be in acute kidney injury. The BUN was at 2 or 3 with a creatinine of 10.4. Sodium levels at 133. WBC count was at 12.1 with hemoglobin 12.8 and a platelet count of 196. Coagulation profile was normal. UA showed multiple WBCs more than 182 was 56 RBCs and many clumps of white cells and moderate amount of bacteria and the patient also tested positive for influenza A. The patient was started on IV fluids. Creatinine this morning is down to 8.25 with a BUN of 182. Sodium level is at 131. The patient's chest x-ray showed n diffuse interstitial markings bilaterally consistent with atypical/viral pneumonia and some areas of bandlike atelectasis bilaterally. The patient is currently on oxygen at 3 L with a pulse ox of 98%. She is bronchospastic and wheezy. She was started on Tamiflu. Blood gas was done on the medical floor and the patient was found to have a pH of 7.46 with a pCO2 of 51 and pO2 of 81. Nephrology on the case. The patient is currently on IV fluids and she was started on bicarb infusion and the follow-up bicarb level from this morning is up to 31. Nephrology has been consulted regarding his acute kidney injury. Based on the absence of any significant urine output with fluids, vascular surgery was consulted for dialysis access. Calcium level is at 6.9. The patient has a baseline chronic stage IV kidney disease with a creatinine of 2.0 from July 2022. On today's evaluation of 07/03/2023, the patient is being seen in the intensive care unit. At the patient became more short of breath, she got transferred to the intensive care unit and placed on a BiPAP at a pressure of 16/6 with an FiO2 of 50%. Earlier this morning, the patient was taken off the BiPAP and she is currently on 5 L nasal cannula. As mentioned, she has advanced dementia. She is unable to communicate. She mumbles few words and she cannot hold a straight conversation. She was given a hemodialysis cath in the left femoral vein and a session of hemodialysis was completed yesterday with a total ultrafiltration of 800 cc. Urine output is minimal at this point in time. The patient will likely need another session of hemodialysis today. Swallow evaluation is also to be done today. The white cell count is at 4 with a hemoglobin 10.6 and a platelet count of 163. Sodium is at 132, potassium is at 3.6, BUN is 81 with a creatinine of 5.64 and a calcium level is at 6.4 with a phosphorus level of 2.1. Nephrology on the case. The patient is hemodynamically stable and the patient is afebrile at this point in time. She remains on bronchodilators. She remains on IV Solu-Medrol. Objective - Vital Signs Vital signs: Vital Signs Temp 97.6 F 07/03/23 09:00 Pulse 82 07/03/23 09:00 Resp 25 H 07/03/23 09:00 BP 117/72 07/03/23 09:00 Pulse Ox 98 07/03/23 09:00 FiO2 50 07/03/23 09:00 Intake & Output 07/02/23 07/03/23 07/03/23 18:59 06:59 18:59 Intake Total 400 350 50 Output Total 1230 0 0 Balance -830 350 50 Weight 45.359 kg 44.6 kg Intake: Intake, IV Titration 350 50 Amount Calcium Gluconate in NaCl 100 1 gm In Saline 1 100ml. bag @ 100 mls/hr IVPB ONCE ONE Rx#:[id number] Potassium Chloride 20 meq 200 In Water For Injection 1 100ml.bag @ 50 mls/hr IVPB Q2H [facility] Rx#: [id number] cefTRIAXone 1 gm In 50 50 Sodium Chloride 0.9% 50 ml @ 100 mls/hr IVPB Q12HR [facility] Rx#:[id number] Hemodialysis 400 Output: Urine 30 0 0 Hemodialysis 1200 Other: Voiding Method External Catheter Incontinent Incontinent # Bowel Movements 1 1 - Exam Patient is lethargic, debilitated with a body mass index of 18.9 with mild degree of respiratory distress currently on 5 L of oxygen by nasal cannula, has underlying dementia and baseline confusion. Head exam was generally normal. There was no scleral icterus or corneal arcus. Mucous membranes were moist. Neck was supple and without jugular venous distension, thyromegaly, or carotid bruits. Carotids were easily palpable bilaterally. There was no adenopathy. Lung sounds are diminished bilaterally and the patient is Very wheezes throughout the lung stallings and scattered rhonchi Cardiac exam revealed the PMI to be normally situated and sized. The rhythm was regular and no extrasystoles were noted during several minutes of auscultation. The first and second heart sounds were normal and physiologic splitting of the second heart sound was noted. There were no murmurs, rubs, clicks, or gallops. Abdominal exam revealed normal bowel sounds. The abdomen was soft, non-tender, and without masses, organomegaly, or appreciable enlargement of the abdominal aorta.. Large abdominal wall hernia noted, easily reducible. Examination of the extremities revealed easily palpable radial, femoral and pedal pulses. There was no cyanosis, clubbing or edema. Skin is dry without any ulceration and mucous membranes are also dry Neurologically the patient is moving all 4 extremities. The patient encephalopathic. No focal neurological deficits. Confused, unable to hold a straight conversation. Mumbles few words. No agitation. - Labs CBC & Chem 7: 07/03/23 05:40 07/03/23 05:40 Labs: Abnormal Lab Results - Last 24 Hours (Table) 07/02/23 07/02/23 07/02/23 Range/Units 10:16 10:16 12:06 RBC (3.80-5.40) m/uL Hgb (11.4-16.0) gm/dL Hct (34.0-46.0) % Lymphocytes # (1.0-4.8) k/uL ABG pH 7.46 H (7.35-7.45) ABG pCO2 51 H (35-45) mmHg ABG pO2 81 L (83-108) mmHg ABG HCO3 36 H (21-25) mmol/L ABG Total CO2 38 H (19-24) mmol/L ABG O2 Saturation (94-97) % Sodium 131 L (137-145) mmol/L Potassium 2.4 L* (3.5-5.1) mmol/L Chloride 83 L (98-107) mmol/L Carbon Dioxide 31 H (22-30) mmol/L BUN 182 H* (7-17) mg/dL Creatinine 8.25 H* (0.52-1.04) mg/dL Glucose 179 H (74-99) mg/dL POC Glucose (mg/dL) (70-110) mg/dL Calcium 5.3 L* (8.4-10.2) mg/dL Phosphorus (2.5-4.5) mg/dL Magnesium 1.4 L (1.6-2.3) mg/dL AST (14-36) U/L Total Protein (6.3-8.2) g/dL Albumin (3.5-5.0) g/dL 07/02/23 07/02/23 07/02/23 Range/Units 19:50 20:20 20:37 RBC (3.80-5.40) m/uL Hgb (11.4-16.0) gm/dL Hct (34.0-46.0) % Lymphocytes # (1.0-4.8) k/uL ABG pH (7.35-7.45) ABG pCO2 (35-45) mmHg ABG pO2 (83-108) mmHg ABG HCO3 (21-25) mmol/L ABG Total CO2 (19-24) mmol/L ABG O2 Saturation (94-97) % Sodium 130 L (137-145) mmol/L Potassium 3.2 L (3.5-5.1) mmol/L Chloride 91 L (98-107) mmol/L Carbon Dioxide (22-30) mmol/L BUN 74 H (7-17) mg/dL Creatinine 4.52 H (0.52-1.04) mg/dL Glucose 135 H (74-99) mg/dL POC Glucose (mg/dL) 143 H 132 H (70-110) mg/dL Calcium 6.3 L* (8.4-10.2) mg/dL Phosphorus 5.6 H (2.5-4.5) mg/dL Magnesium (1.6-2.3) mg/dL AST 82 H (14-36) U/L Total Protein 5.7 L (6.3-8.2) g/dL Albumin 3.0 L (3.5-5.0) g/dL 07/03/23 07/03/23 07/03/23 Range/Units 00:55 05:40 05:40 RBC 3.55 L (3.80-5.40) m/uL Hgb 10.6 L (11.4-16.0) gm/dL Hct 32.9 L (34.0-46.0) % Lymphocytes # 0.3 L (1.0-4.8) k/uL ABG pH (7.35-7.45) ABG pCO2 47 H (35-45) mmHg ABG pO2 340 H (83-108) mmHg ABG HCO3 27 H (21-25) mmol/L ABG Total CO2 29 H (19-24) mmol/L ABG O2 Saturation 98.5 H (94-97) % Sodium 132 L (137-145) mmol/L Potassium (3.5-5.1) mmol/L Chloride 96 L (98-107) mmol/L Carbon Dioxide (22-30) mmol/L BUN 81 H (7-17) mg/dL Creatinine 5.64 H (0.52-1.04) mg/dL Glucose (74-99) mg/dL POC Glucose (mg/dL) (70-110) mg/dL Calcium 6.4 L* (8.4-10.2) mg/dL Phosphorus (2.5-4.5) mg/dL Magnesium (1.6-2.3) mg/dL AST (14-36) U/L Total Protein (6.3-8.2) g/dL Albumin (3.5-5.0) g/dL Microbiology - Last 24 Hours (Table) 06/30/23 10:58 Blood Culture - Preliminary Blood 06/30/23 10:40 Blood Culture - Preliminary Blood 06/30/23 10:31 Urine Culture - Final Urine,Voided Assessment and Plan Plan: Acute influenza A infection, initial diagnosis was made in the care home 5 days ago. The patient is currently on Tamiflu as long as she is able to take oral medication. She is on bronchodilators. She has been also on steroids. She does have a component of mild viral pneumonia and a chest x-ray with secondary COPD exacerbation. Acute hypoxic respiratory failure, currently on 5 L of oxygen by nasal cannula and BiPAP has been discontinued. Acute COPD exacerbation secondary to above Acute on chronic kidney disease. The patient has a baseline stage IV kidney disease and the patient presented with acute kidney injury, likely secondary to vascular volume depletion and dehydration and the patient is not producing any urine output despite fluid resuscitation. The patient was started on hemodialysis yesterday. First session of hemodialysis was completed on 07/02/2023. Calcium is low. Rest of the electrolytes are stable. Acute metabolic acidosis secondary to above, improved Chronic dementia Encephalopathy secondary to above Shortness of breath secondary to above Previous history of DVTs, currently on no anticoagulants History of pernicious anemia History of large abdominal wall hernia History of thyroid nodules Osteoporosis Questionable hypercoagulable state and clotting disorder Hypothyroidism maintained on Synthroid Electrolyte disturbances secondary to above including hypokalemia and hypocalcemia Plan Keep the patient on 5 L of oxygen by nasal cannula Swallow evaluation Continue bronchodilators and continue steroids for now continue Tamiflu as long as the patient is able to take oral medications Nephrology on the case and the patient is being contemplated for another session of hemodialysis today. Condition remains critical. Patient has significant dementia at baseline with impaired baseline performance and functional status. Outcome is obviously poor due to underlying dementia. Will continue to follow make further recommendations based on her progress. Ultrasound kidney showed no evidence of any hydronephrosis. Will do a swallow evaluation and provide diet as long as the patient is able to swallow safely without Aspiration. She will be kept in ICU for today.
--- NOTE | 2023-07-03 14:56 | CDI ---
Documentation Clarification Form Date: 07/03/2023 02:18:47 PM From: Renay Mcmanus RN CCDS Phone: [phone] Admit Date: 06/30/2023 12:18:00 PM Patient Name: Rossy Adams Visit Number: [id number] Discharge Date: ATTENTION: The Clinical Documentation Specialists (CDI) and [facility] Coding Staff appreciate your assistance in clarifying documentation. Please respond to the clarification below the line at the bottom and electronically sign. The CDI & [facility] Coding staff will review the response and follow-up if needed. Please note: Queries are made part of the Legal Health Record. If you have any questions, please contact the author of this message via ITS. Dr. Dylan Del Valle Encephalopathy is documented 07/01, Pulmonary note. Additional clarification regarding the type of encephalopathy is requested. History/Risk Factors: 87-year-old male presents to the ED from ECF for being lethargic and short of breath for one week. Recent diagnosis of Influenza A Medical history: CKD, Dementia, DVT, Thyroid disorder and chronic pernicious anemia. 06/29, ED note Clinical Indicators: Labs, 06/29: Wbc 12.1, Neutrophils 10.5, Lymphocytes 0.9, NA 133, K 3.4, carbon dioxide <5, BUN 203, Cr 10.46, GFR 3; Lactic acid 0.6; Calcium 6.0; Procalcitonin 1.68; Influenza A VSS, 07/01: BP 122/59; HR 84; Temp 95.1F Rectal; RR 19; SpO2 99% BiPAP Nephrology: Oliguric FELIX likely ATN from severe volume depletion. Previous baseline 1.2 (2020 most recent creatinine July 2022 2.0mg/dl. Treatment:07/01 IR cvc Insert for dialysis; 06/29 Tylenol 650mg PO x 1; 06/29 0.9NS 130cc/hr IV d/c 06/29; 06/29 Sodium Bicarbonate 8.4% 25ml IV x 1; 06/29 07/01 Dextrose/Water with Sodum Bicarbonate 1,150mls@125mls/hr IV; 06/29 Calcium Gluconate/Sodium Cl 2gm IVPB X 1; 06/29 Potasium Chl 10meq IVPB X2 BAGS 06/30 Calcium Gluconate / sodium chl 2gm ivpb x1 06/29 Ceftriaxone 1gm IVPB Q12H; 07/01 Solumedrol 60mg IV Q6H; 06/29 Tamiflu 30mg PO Q24H x 5 doses; 07/01 Calcium Gluconate / Sodium 1gm IVPB X1; Magnesion sulfate 1gm IVPB x 2 bags; Potassium Chl 20meq IVPB x 3 bags; 07/01 Lasix 60mg IV x 1 07/01 Please clarify the type of encephalopathy, if known: [ x ] Metabolic Encephalopathy related to Acute influenza A infection, Acute hypoxic respiratory failure, Acute COPD exacerbation and acute on chronic CKD. [ ] Other, please specify [ ] Unable to determine (Template Last Revised: May 2020) MTDD
--- NOTE | 2023-07-03 15:10 | CDI ---
Documentation Clarification Form Date: 07/03/2023 02:58:23 PM From: Renay Mcmanus RN CCDS Phone: [phone] Admit Date: 06/30/2023 12:18:00 PM Patient Name: Rossy Adams Visit Number: [id number] Discharge Date: ATTENTION: The Clinical Documentation Specialists (CDI) and [facility] Coding Staff appreciate your assistance in clarifying documentation. Please respond to the clarification below the line at the bottom and electronically sign. The CDI & [facility] Coding staff will review the response and follow-up if needed. Please note: Queries are made part of the Legal Health Record. If you have any questions, please contact the author of this message via ITS. Dr. Lobito Miguel The Registered Dietitian assessment on 07/01 indicates this patient is emaciated. Based on this information and the findings below, is there an additional diagnosis that is clinically appropriate for this patient? History/Risk Factors: 87-year-old male presents to the ED from [facility] for being lethargic and short of breath for one week. Recent diagnosis of Influenza A Medical history: CKD, Dementia, DVT, Thyroid disorder and chronic pernicious anemia. 06/29, ED note Clinical Indicators: RD Consult, 07/01: Current BMI: 18.9kg, Hgt 5ft 1in, Wgt 45.359.kg Patient is confused, on droplet precautions. Estimated Nutritional Needs Energy formula for estimated nutritional needs 30-35Kcals/Kg Energy Needs [id number] Kcals Estimated protein needs range 1.0 1.25 grams/kg Protein needs 45-56 grams/day Inadequate energy intake related to confusion, difficulty breathing, no PO intake of Meals x 2 days. [Cite applicable ASPEN criteria listed below] Treatment: Monitor PO intake and supplement intake. Revaluate July 08, 2023. Supplements: Ensure compact BID Is there an additional diagnosis that is clinically appropriate for this patient? [ ] Chronic Moderate Protein Calorie Malnutrition [ ] Chronic Severe Protein-Calorie Malnutrition [ ] No additional diagnosis/Not clinically significant [ ] Other condition, please specify [ ] Unable to Determine Reference: Using the ASPEN Guidelines, Undernutrition (Malnutrition) is characterized by at least two of the following six findings. The severity can be determined based on the criteria listed below. Malnutrition Characteristics for Moderate and Severe Malnutrition Type of Malnutrition Acute Illness or Injury Chronic Illness Degree of Malnutrition Non-severe (moderate) Malnutrition Severe Malnutrition Non-severe (moderate) Malnutrition Severe Malnutrition Energy Intake <75% for >7 days = 50% for = 5 days <75% for = 1 month =75% for = 1 month Weight Loss 1-2% in one week, 5% in 1 month, 7.5% in 3 months 2% in one week, >5% in 1 month, >7.5% in 3 months 5% in one month, 7.5% in 3 months, 10% in 6 months, 20% in 1 year >5% in one month, >7.5% in 3 months, >10% in 6 months, >20% in 1 year Body Fat Wasting Mild Moderate Mild Severe Muscle Wasting Mild Moderate Mild Severe Presence of Edema Mild Moderate to Severe Mild Severe Agency Cashier Strength Not applicable Measurably Reduced Not applicable Measurably Reduced Source: Jake AriasV, Nuvia P, Rohan G, et al. Consensus statement: Academy of Nutrition and Dietetics and [place] [employer] for Parenteral and Enteral Nutrition: characteristics recommended for the identification and documentation of adult malnutrition (undernutrition).STEFFEN J Parenter Enteral Nutr. 2012;36(3):275-283. (Template Last Revised: September 2022) MTDD
[2023-07-03 18:14] LABS: Glucose,Whole Blood 100 mg/dL (70-110)
--- NOTE | 2023-07-04 05:57 | PN ---
PROGRESS NOTE CHIEF COMPLAINT: 1. Stage 5 CKD. 2. Advanced severe dehydration. 3. Delirium. 4. Electrolyte imbalance. HISTORY OF PRESENT ILLNESS: This lady is about the same. She is still delirious and she is on BiPAP. She is being dialyzed. PHYSICAL EXAMINATION: VITAL SIGNS: At the present time, her vital signs are normal. LUNGS: Breath sounds are heard bilaterally. She has a sinus tachycardia or atrial fibrillation. ABDOMEN: Soft and unchanged with her large ventral hernia. IMPRESSION: 1. Acute renal failure. 2. Severe dehydration. 3. Delirium. PLAN: She will be continued on management in ICU with hopes that her renal function will return. MMODL / IJN: [id number] /
[2023-07-04] MEDS: CALCIUM GLUCONATE IN NACL 2 GM in SALINE 1 100ML.BAG IVPB ONE (06:19)
[2023-07-04 06:27] LABS: Basophils % (A) 0 %; Eosinophils % (A) 0 %; HCT 34.3 % (34.0-46.0); HGB 10.8 gm/dL (11.4-16.0); Lymphocytes # (A) 0.4 k/uL (1.0-4.8); Lymphocytes % (A) 5 %; MCH 29.9 pg (25.0-35.0); MCHC 31.5 g/dL (31.0-37.0); MCV 95.1 fL (80.0-100.0); Mean Platelet Volume 8.2; Monocytes # (A) 0.2 k/uL (0-1.0); Monocytes % (A) 3 %; Neutrophils # (A) 7.5 k/uL (1.3-7.7); Neutrophils % (A) 92 %; Platelet Count 172 k/uL (150-450); RBC 3.61 m/uL (3.80-5.40); RDW 15.1 % (11.5-15.5); WBC 8.2 k/uL (3.8-10.6)
[2023-07-04 06:30] LABS: Ionized Calcium 3.8 mg/dL (4.5-5.3)
[2023-07-04 06:39] LABS: African American GFR (CKD) 9 (>60 ml/min/1.73 sqM); Anion Gap 14 mmol/L; Blood Urea Nitrogen 61 mg/dL (7-17); Calcium 6.7 mg/dL (8.4-10.2); Carbon Dioxide 18 mmol/L (22-30); Chloride 106 mmol/L (98-107); Glucose 92 mg/dL (74-99); Non-African American GFR(CKD) 8 (>60 ml/min/1.73 sqM); Potassium 3.1 mmol/L (3.5-5.1); Sodium 138 mmol/L (137-145)
[2023-07-04] MEDS: POTASSIUM CHLORIDE 10 MEQ in WATER FOR INJECTION 1 100ML.BAG IVPB SCH (07:11)
--- NOTE | 2023-07-04 07:59 | XR ---
EXAMINATION TYPE: XR chest 1V portable DATE OF EXAM: 07/04/2023 5:51 AM CLINICAL INDICATION:Female, 87 years old with history of pneumonia; COMPARISON: Chest radiograph from one day prior. TECHNIQUE: XR chest 1V portable Frontal view of the chest. FINDINGS: Lungs/Pleura: Prominent interstitial lung markings are seen scattered throughout the lungs. No eviden ce of focal consolidation, pneumothorax or pleural effusion. Pulmonary vascularity: Unremarkable. Heart/mediastinum: Cardiomediastinal silhouette is unremarkable. Atherosclerotic calcifications are seen in the aorta. Musculoskeletal: No acute osseous pathology. Other findings: None IMPRESSION: Interstitial lung disease changes without acute pulmonary process.
--- NOTE | 2023-07-04 10:36 | P.PN ---
Subjective patient is seen for follow-up for acute kidney injury. tested positive for influenza A. Started hemodialysis on 07/02/2023 for confusion in the setting of advanced acute kidney injury. Patient remains confused. No significant urine output documented. Off of BiPAP and maintained on 6L nasal canula. Objective - Vital Signs Vital signs: Vital Signs Temp 97.0 F L 07/04/23 05:00 Pulse 80 07/04/23 07:00 Resp 23 07/04/23 07:00 BP 89/53 07/04/23 07:00 Pulse Ox 98 07/04/23 07:00 FiO2 35 07/04/23 00:00 Intake & Output 07/03/23 07/04/23 07/04/23 18:59 06:59 18:59 Intake Total 140 177.673 110 Output Total 25 25 5 Balance 115 152.673 105 Weight 42.3 kg Intake: IV 90 120 10 0.9 NS @ KVO 90 120 10 Intake, IV Titration 50 57.673 100 Amount Dexmedetomidine/0.9% NaCl 7.673 (Pmx) 400 mcg In Empty Bag 1 bag @ 0.2 MCG/KG/HR 2.268 mls/hr IV .Q24H LISA Rx#:[id number] Potassium Chloride 10 meq 100 In Water For Injection 1 100ml.bag @ 100 mls/hr IVPB Q1HR LISA Rx#: [id number] cefTRIAXone 1 gm In 50 50 Sodium Chloride 0.9% 50 ml @ 100 mls/hr IVPB Q12HR LISA Rx#:[id number] Output: Urine 25 25 5 Other: Voiding Method Indwelling Catheter Indwelling Catheter # Bowel Movements 1 1 - Exam patient is confused. She is comfortable. No acute distress but tachypneic. Examination of the heart S1 and S2 Examination of the lungs decreased breath sounds at the bases Abdomen is soft nontender large ventral hernia noted Examination of lower extremities shows no significant edema. - Labs CBC & Chem 7: 07/04/23 06:00 07/04/23 06:00 Labs: Abnormal Lab Results - Last 24 Hours (Table) 07/04/23 07/04/23 Range/Units 06:00 06:00 RBC 3.61 L (3.80-5.40) m/uL Hgb 10.8 L (11.4-16.0) gm/dL Lymphocytes # 0.4 L (1.0-4.8) k/uL Potassium 3.1 L (3.5-5.1) mmol/L Carbon Dioxide 18 L (22-30) mmol/L BUN 61 H (7-17) mg/dL Creatinine 4.66 H (0.52-1.04) mg/dL Calcium 6.7 L (8.4-10.2) mg/dL Ionized Calcium Steffanie 3.8 L (4.5-5.3) mg/dL Microbiology - Last 24 Hours (Table) 06/30/23 10:58 Blood Culture - Preliminary Blood 06/30/23 10:40 Blood Culture - Preliminary Blood Assessment and Plan Assessment: 1. Oliguric FELIX likely ATN from severe volume depletion and hypotension. Previous baseline 1.2 (2020), most recent creatinine July 2022 2.0 mg/dL. Presented creatinine 10. U/A consistent with infection. Renal US atrophic right kidney no hydronephrosis. Given the persistent confusion patient was started on dialysis on 07/02/2023 2. CKD Stage 4, baseline creatinine possibly around 2.0 mg/dL GFR 23. 3. Severe dehydration. 4. Hypokalemia related to poor intake. 5. Severe AGMA related to FELIX 6. Hypocalcemia, corrected calcium 6.9. 7. Influenza A pneumonia. Plan: repeat hemodialysis today Continue Tamiflu and empiric antibiotics along with IV steroids as per pulmonary.
[2023-07-04 10:44] VITALS: BMI 17.6
--- NOTE | 2023-07-04 11:47 | P.PN ---
Subjective Progress Note Date: 07/04/23 This is an 87-year-old female patient came into the emergency department, feeling well for the past 1 week and lethargic and short of breath. No nausea or emesis. Yet the patient was having diminished oral intake. She does have underlying dementia and she is a very poor historian. The patient carries a previous history of recurrent DVTs with possibly an underlying hypercoagulable state and the patient has not been receiving any form of anticoagulation on outpatient basis. In the emergency department, the patient was found to be in acute kidney injury. The BUN was at 2 or 3 with a creatinine of 10.4. Sodium levels at 133. WBC count was at 12.1 with hemoglobin 12.8 and a platelet count of 196. Coagulation profile was normal. UA showed multiple WBCs more than 182 was 56 RBCs and many clumps of white cells and moderate amount of bacteria and the patient also tested positive for influenza A. The patient was started on IV fluids. Creatinine this morning is down to 8.25 with a BUN of 182. Sodium level is at 131. The patient's chest x-ray showed n diffuse interstitial markings bilaterally consistent with atypical/viral pneumonia and some areas of bandlike atelectasis bilaterally. The patient is currently on oxygen at 3 L with a pulse ox of 98%. She is bronchospastic and wheezy. She was started on Tamiflu. Blood gas was done on the medical floor and the patient was found to have a pH of 7.46 with a pCO2 of 51 and pO2 of 81. Nephrology on the case. The patient is currently on IV fluids and she was started on bicarb infusion and the follow-up bicarb level from this morning is up to 31. Nephrology has been consulted regarding his acute kidney injury. Based on the absence of any significant urine output with fluids, vascular surgery was consulted for dialysis access. Calcium level is at 6.9. The patient has a baseline chronic stage IV kidney disease with a creatinine of 2.0 from July 2022. On today's evaluation of 07/03/2023, the patient is being seen in the intensive care unit. At the patient became more short of breath, she got transferred to the intensive care unit and placed on a BiPAP at a pressure of 16/6 with an FiO2 of 50%. Earlier this morning, the patient was taken off the BiPAP and she is currently on 5 L nasal cannula. As mentioned, she has advanced dementia. She is unable to communicate. She mumbles few words and she cannot hold a straight conversation. She was given a hemodialysis cath in the left femoral vein and a session of hemodialysis was completed yesterday with a total ultrafiltration of 800 cc. Urine output is minimal at this point in time. The patient will likely need another session of hemodialysis today. Swallow evaluation is also to be done today. The white cell count is at 4 with a hemoglobin 10.6 and a platelet count of 163. Sodium is at 132, potassium is at 3.6, BUN is 81 with a creatinine of 5.64 and a calcium level is at 6.4 with a phosphorus level of 2.1. Nephrology on the case. The patient is hemodynamically stable and the patient is afebrile at this point in time. She remains on bronchodilators. She remains on IV Solu-Medrol. On today's evaluation of 07/04/2023, the patient is being seen for a follow-up. As mentioned, the patient advanced dementia. She is nonverbal. Mumbles few words. She was kept on BiPAP for yesterday at a pressure of 12 over 6 cm of water and this morning she was transitioned to 5 L of oxygen by nasal cannula. She is breathing comfortably. No signs of any respiratory distress. She also required some Precedex to maintain synchrony and tolerate the BiPAP. Currently she is off the Precedex and the patient was taken off the BiPAP. She is on normal saline at rate of 10 cc an hour. She underwent hemodialysis yesterday. Urine output is in order of 5 cc an hour. She is lethargic, unable to communicate, extremely debilitated with a body mass index of 17.6. Profound weakness in all 4 extremities. Swallow needs to be checked at this point in time and the patient is NPO. BUN is at 16 with a creatinine of 4.6 and a sodium level of 138 and a potassium level of 3.1. Ionized calcium was at 3.8 and the patient was given 2 g of calcium gluconate. WBC count of 8.0 with a hemoglobin 10.8 and a platelet count of 172. She remains on bronchodilators. She remains on empiric antibiotic coverage with IV Rocephin. She remains on IV Solu-Medrol. The follow-up chest x-ray from today shows increased interstitial changes bilaterally consistent with interstitial pneumonia, likely viral in nature. Objective - Vital Signs Vital signs: Vital Signs Temp 97.7 F 07/04/23 08:00 Pulse 93 07/04/23 11:00 Resp 22 07/04/23 11:00 BP 103/58 07/04/23 11:00 Pulse Ox 94 L 07/04/23 11:00 FiO2 35 07/04/23 00:00 Intake & Output 07/03/23 07/04/23 07/04/23 18:59 06:59 18:59 Intake Total 140 177.673 320 Output Total 25 25 30 Balance 115 152.673 290 Weight 42.3 kg 42.3 kg Intake: IV 90 120 20 0.9 NS @ KVO 90 120 20 Intake, IV Titration 50 57.673 300 Amount Dexmedetomidine/0.9% NaCl 7.673 (Pmx) 400 mcg In Empty Bag 1 bag @ 0.2 MCG/KG/HR 2.268 mls/hr IV .Q24H LISA Rx#:[id number] Potassium Chloride 10 meq 300 In Water For Injection 1 100ml.bag @ 100 mls/hr IVPB Q1HR LISA Rx#: [id number] cefTRIAXone 1 gm In 50 50 Sodium Chloride 0.9% 50 ml @ 100 mls/hr IVPB Q12HR LISA Rx#:[id number] Output: Urine 25 25 30 Other: Voiding Method Indwelling Catheter Indwelling Catheter # Bowel Movements 1 1 - Exam Patient is lethargic, debilitated with a body mass index of 18.9 with mild degree of respiratory distress currently on 5 L of oxygen by nasal cannula, has underlying dementia and baseline confusion. Head exam was generally normal. There was no scleral icterus or corneal arcus. Mucous membranes were moist. Neck was supple and without jugular venous distension, thyromegaly, or carotid bruits. Carotids were easily palpable bilaterally. There was no adenopathy. Lung sounds are diminished bilaterally and the patient is Very wheezes throughout the lung stallings and scattered rhonchi Cardiac exam revealed the PMI to be normally situated and sized. The rhythm was regular and no extrasystoles were noted during several minutes of auscultation. The first and second heart sounds were normal and physiologic splitting of the second heart sound was noted. There were no murmurs, rubs, clicks, or gallops. Abdominal exam revealed normal bowel sounds. The abdomen was soft, non-tender, and without masses, organomegaly, or appreciable enlargement of the abdominal aorta.. Large abdominal wall hernia noted, easily reducible. Examination of the extremities revealed easily palpable radial, femoral and pedal pulses. There was no cyanosis, clubbing or edema. Skin is dry without any ulceration and mucous membranes are also dry Neurologically the patient is moving all 4 extremities. The patient encephalopathic. No focal neurological deficits. Confused, unable to hold a st raight conversation. Mumbles few words. No agitation. - Labs CBC & Chem 7: 07/04/23 06:00 07/04/23 06:00 Labs: Abnormal Lab Results - Last 24 Hours (Table) 07/04/23 07/04/23 Range/Units 06:00 06:00 RBC 3.61 L (3.80-5.40) m/uL Hgb 10.8 L (11.4-16.0) gm/dL Lymphocytes # 0.4 L (1.0-4.8) k/uL Potassium 3.1 L (3.5-5.1) mmol/L Carbon Dioxide 18 L (22-30) mmol/L BUN 61 H (7-17) mg/dL Creatinine 4.66 H (0.52-1.04) mg/dL Calcium 6.7 L (8.4-10.2) mg/dL Ionized Calcium Steffanie 3.8 L (4.5-5.3) mg/dL Microbiology - Last 24 Hours (Table) 06/30/23 10:58 Blood Culture - Preliminary Blood 06/30/23 10:40 Blood Culture - Preliminary Blood Assessment and Plan Plan: Acute influenza A infection, initial diagnosis was made in the residential 5 days ago. The patient is currently on Tamiflu as long as she is able to take oral medication. She is on bronchodilators. She has been also on steroids. She does have a component of mild viral pneumonia and a chest x-ray with secondary COPD exacerbation. The patient is currently off BiPAP on 5 L of oxygen by nasal cannula. Overnight she was kept on BiPAP. She was also placed on Precedex to maintain synchrony with the BiPAP machine and currently she is off the Precedex. Acute hypoxic respiratory failure, currently on 5 L of oxygen by nasal cannula and BiPAP has been discontinued. Acute COPD exacerbation secondary to above Acute on chronic kidney disease. The patient has a baseline stage IV kidney disease and the patient presented with acute kidney injury, likely secondary to vascular volume depletion and dehydration and the patient is not producing any urine output despite fluid resuscitation. The patient was started on hemodi alysis, hemodialysis being done on a daily basis another session to be done today. Acute metabolic acidosis secondary to above, improved Chronic dementia Encephalopathy secondary to above with underlying dementia and extreme debility and signs of chronic malnutrition with a body mass index of 17.6 Shortness of breath secondary to above Previous history of DVTs, currently on no anticoagulants History of pernicious anemia History of large abdominal wall hernia History of thyroid nodules Osteoporosis Questionable hypercoagulable state and clotting disorder Hypothyroidism maintained on Synthroid Electrolyte disturbances secondary to above including hypokalemia and hypocalcemia, being replaced Plan Keep the patient on 5 L of oxygen by nasal cannula Swallow evaluation to be done today. If failed, is reasonable to consider Dobbhoff catheter for enteral feeding and nutritional support. Continue bronchodilators and continue steroids for now continue Tamiflu as long as the patient is able to take oral medications Nephrology on the case and the patient is being contemplated for another session of hemodialysis today. Condition remains critical. Patient has significant dementia at baseline with impaired baseline performance and functional status. Outcome is obviously poor due to underlying dementia. Will continue to follow make further recommendations based on her progress. Ultrasound kidney showed no evidence of any hydronephrosis. She will be kept in ICU for today. No significant progress since yesterday Time with Patient: Greater than 30
[2023-07-04 14:17] VITALS: BP 106/52; PULSE 83; TEMP 97.9
[2023-07-04 14:18] VITALS: RESP 28
--- NOTE | 2023-07-04 14:55 | P.DS ---
Providers Date of admission: 06/30/23 12:18 Expected date of discharge: 07/04/23 Attending physician: Lobito Miguel Consults: 06/30/23 12:18 Consult Physician Urgent Consulting Provider: Jack Vail Consult Reason/Comments: arf Do you want consulting provider notified?: Yes 07/02/23 09:25 Consult Physician Urgent Consulting Provider: Dylan Del Valle Consult Reason/Comments: Flu A, respiratory distress Do you want consulting provider notified?: Yes 07/02/23 11:04 Consult Physician Urgent Consulting Provider: Gallo Alvarado Consult Reason/Comments: dialysis catheter TRICIA Do you want consulting provider notified?: Yes Primary care physician: Lobito Miguel Hospital Course: Final diagnosis Shortness of breath with generalized weakness and bodyaches secondary to acute influenza A infection, diagnosed in the longterm 5 days prior with underlying viral pneumonia, present on admission Acute hypoxic respiratory failure, secondary to above, initiated on BiPAP and has transition to 5 L via nasal cannula COPD, acute exacerbation Chronic severe calorie malnutrition with a BMI of 17.6 Acute on chronic kidney disease, stage IV, requiring hemodialysis Chronic dementia History of DVT Severe dehydration Discharge disposition Patient is being transitioned in a guarded prognosis to [facility] hospice services, comfort measures. Patient follows with Dr. Miguel in the outpatient setting. Patient is to start comfort measures. Total time taken is greater than 35 minutes. Hospital course This is a 87-year-old femalewho was recently admitted with increasing shortness of breath with generalized weakness and severe dehydration with malnutrition. Patient was noted to have acute influenza A infection at the longterm and had been becoming more weak and more short of breath started on BiPAP initially. Patient has transition to 5-6 L via nasal cannula and family have discussed further making no code. Patient with significant history of dementia and poor oral intake was evaluated by speech and unable to perform due to patient's respiratory status and significant lethargy. Further discussion was had including a hospice and patient's family is agreeable to hospice with comfort measures. Patient meets GIP criteria and will be transitioned to comfort care measures only. Patient currently remains in the ICU and will be moved as appropriate. Overall poor prognosis. Please refer to other consultation notes and pulmonary gristmill operator notes for further HPI Physical exam: Gen: This is a 87-year-old female who is awake, alert x 1-2, extremely lethargic and falls asleep on exam, ill-appearing, elderly appearing, cachectic with significant muscle wasting noted HEENT: Head is atraumatic, normocephalic. Pupils equal, round. Sclerae is anicteric. NECK: Supple. No JVD. No lymphadenopathy. No thyromegaly. LUNGS: Diminished breath sounds bilaterally with coarse rhonchi. Faint crackles noted. Tachypneic on exam. No intercostal retractions. HEART: S1, S2 are muffled, tacky ABDOMEN: Soft. Thin. Bowel sounds are present. No masses. No tenderness. EXTREMITIES: No pedal edema. No calf tenderness. Significant muscle wasting noted of upper and lower extremities NEUROLOGICAL: Patient is awake, alert and oriented x1-2. Diffusely weak Please refer to medication reconciliation sheet for a list of medications. The impression and plan of care has been dictated by Blanca Vang, Nurse Practitioner as directed. Dr. Alberto MD I have performed a history and examination and MDM of this patient, discussed the same with the dictator, and agree with the dictator's assessment and plan as written ,documented as a scribe. Based on total visit time, I have performed more than 50% of the visit. Patient Condition at Discharge: Poor Plan - Discharge Summary Discharge Rx Participant: No New Discharge Prescriptions: No Action RX: Omeprazole [PriLOSEC] 20 mg PO DAILY PRN PRN Reason: Gi Upset Cholecalciferol (Vitamin D3) [Vitamin D3 (50 Mcg = 2000 Iu)] 50 mcg PO QID RX: Multivitamin/Iron/Folic Acid [Centrum Women Tablet] 1 tab PO DAILY RX: Alendronate Sodium [Fosamax] 70 mg PO TH Levothyroxine Sodium [Synthroid] 112.5 mcg PO DAILY Discharge Medication List RX: Omeprazole [PriLOSEC] 20 mg PO DAILY PRN 08/04/16 [History] RX: Alendronate Sodium [Fosamax] 70 mg PO TH 07/07/22 [History] RX: Multivitamin/Iron/Folic Acid [Centrum Women Tablet] 1 tab PO DAILY 07/07/22 [History] Cholecalciferol (Vitamin D3) [Vitamin D3 (50 Mcg = 2000 Iu)] 50 mcg PO QID 06/30/23 [History] Levothyroxine Sodium [Synthroid] 112.5 mcg PO DAILY 06/30/23 [History] Follow up Appointment(s)/Referral(s): Lobito Miguel MD [Primary Care Provider] - 1-2 days
[2023-07-05] MEDS ORDERED: NON FORMULARY DRUG (Alendronate Sodium [Fosamax] 70 MG Tablet) PO SCH (12:33)
== END 2023-07-04 14:45 | disposition hospice, inpatient (51) | DRG 682 ==
LOC: EC 10:15 → 3SCARD 12:18 → 2SICU 07-02 20:03
PROVIDERS: ADMIT Family Medicine; ATTEND Family Medicine
PROC: 5A1D70Z Performance of Urinary Filtration, Intermittent, Less than 6 Hours Per Day (ICD-10-PCS; 2023-07-02)
PROC: 5A09457 Assistance with Respiratory Ventilation, 24-96 Consecutive Hours, Continuous Positive Airway Pressure (ICD-10-PCS; 2023-07-02)
PROC: 02HV33Z Insertion of Infusion Device into Superior Vena Cava, Percutaneous Approach (ICD-10-PCS; principal; 2023-07-02 12:59)
DX: N17.0 Acute kidney failure with tubular necrosis (principal); E43 Unspecified severe protein-calorie malnutrition; J10.08 Influenza due to other identified influenza virus with other specified pneumonia; J96.01 Acute respiratory failure with hypoxia; J12.89 Other viral pneumonia; G93.41 Metabolic encephalopathy; E87.20 Acidosis, unspecified; N39.0 Urinary tract infection, site not specified; Z68.1 Body mass index [BMI] 19.9 or less, adult; F03.911 Unspecified dementia, unspecified severity, with agitation; D68.9 Coagulation defect, unspecified; J44.0 Chronic obstructive pulmonary disease with (acute) lower respiratory infection; J44.1 Chronic obstructive pulmonary disease with (acute) exacerbation; N18.5 Chronic kidney disease, stage 5; Z66 Do not resuscitate; Z51.5 Encounter for palliative care; D51.0 Vitamin B12 deficiency anemia due to intrinsic factor deficiency; E05.00 Thyrotoxicosis with diffuse goiter without thyrotoxic crisis or storm; E86.0 Dehydration; E83.51 Hypocalcemia; E87.6 Hypokalemia; E89.0 Postprocedural hypothyroidism; Z99.2 Dependence on renal dialysis; E86.9 Volume depletion, unspecified; K43.9 Ventral hernia without obstruction or gangrene; Z71.3 Dietary counseling and surveillance; K21.9 Gastro-esophageal reflux disease without esophagitis; N26.1 Atrophy of kidney (terminal); M81.0 Age-related osteoporosis without current pathological fracture; Z20.822 Contact with and (suspected) exposure to COVID-19; Z79.890 Hormone replacement therapy; Z79.899 Other long term (current) drug therapy; Z88.2 Allergy status to sulfonamides; Z88.7 Allergy status to serum and vaccine; Z88.8 Allergy status to other drugs, medicaments and biological substances; Z88.6 Allergy status to analgesic agent; Z91.040 Latex allergy status
CPT/HCPCS: 36415; 36556; 36600; 71045; 71046; 76770; 80048; 80053; 81001; 82330; 82805; 83605; 83735; 84100; 84145; 85025; 85610; 85730; 86706; 87040; 87086; 87340; 87636; 90935; 93005; 94640; 94660; 94760; 96361; 96365; 96366; 96367; 96375; 96376; 99291

== ENCOUNTER 2023-07-04 13:54 | Inpatient (IN) | payer MEDICAID ==
[2023-07-04] MEDS ORDERED: HALOPERIDOL LACTATE 5 MG/ML 1 ML VIAL IM PRN (14:25)
[2023-07-04] MEDS: MORPHINE SULFATE 4 MG/ML SYRINGE IV PRN (14:54)
[2023-07-04] MEDS: LORazepam 2 MG/ML INJ IV PRN (14:55)
--- NOTE | 2023-07-04 15:08 | P.HPIM ---
History of Present Illness H&P Date: 07/04/23 This is an 87-year-old female was admitted with severe dehydration, delirium, electrolyte imbalance along with increased shortness of breath and recently diagnosed with influenza A infection at the detention a few days prior. Patient initially was started on BiPAP and has been transitioned to nasal cannula continuing to do poorly. Patient unable to tolerate any oral intake and attempted to work with speech for evaluation and extremely lethargic. Patient appears uncomfortable and in mild respiratory distress. Family has discussed further and decided on hospice. Patient meets GIP criteria and will be transition to comfort care measures only. Review of systems: Unable to completely assess as patient is lethargic Physical exam: Gen: This is a 87-year-old female who is awake although extremely lethargic and falls asleep during mid conversation, appears in respiratory distress, thin built, cachectic, significant muscle wasting noted, ill-appearing, elderly appearing HEENT: Head is atraumatic, normocephalic. Pupils equal, round. Sclerae is anicteric. NECK: Supple. No JVD. No lymphadenopathy. No thyromegaly. LUNGS: Diminished breath sounds bilaterally with scattered rhonchi and faint crackles noted. No intercostal retractions. HEART: S1, S2 are muffled, tacky ABDOMEN: Soft. Thin, scaphoid bowel sounds are present. No masses. No tenderness. EXTREMITIES: No pedal edema. No calf tenderness. NEUROLOGICAL: Patient is awake, alert and oriented x1-2. Lethargic, extremely weak Assessment: Shortness of breath with generalized weakness and bodyaches secondary to acute influenza A infection, diagnosed in the detention 5 days prior with underlying viral pneumonia, present on admission Acute hypoxic respiratory failure, secondary to above, initiated on BiPAP and has transition to 5 L via nasal cannula COPD, acute exacerbation Chronic severe calorie malnutrition with a BMI of 17.6 Acute on chronic kidney disease, stage IV, requiring hemodialysis Chronic dementia History of DVT Severe dehydration No code Plan: Patient was evaluated and met with family with [facility] hospice and is GIP appropriate and family is agreeable to proceed with comfort care measures. Will continue with supportive care and follow along with [facility] hospice Overall prognosis is poor and guarded The impression and plan of care has been dictated by Blanca Vang, Nurse Practitioner as directed. Dr. Alberto MD I have performed a history and examination and MDM of this patient, discussed the same with the dictator, and agree with the dictator's assessment and plan as written ,documented as a scribe. Based on total visit time, I have performed more than 50% of the visit. Past Medical History Past Medical History: Blood Disorder, Deep Vein Thrombosis (DVT), Eye Disorder, GERD/Reflux, Renal Disease, Thyroid Disorder Additional Past Medical History / Comment(s): History of recurrent DVTs, possible hypercoagulable state nontender the patient has been told to have a pins position for a blood clotting disorder, chronic pernicious anemia, cystocele, hemorrhoids, abdominal wall hernia, thyroid nodules, osteoporosis, GERD, suspected Graves' disease, History of Any Multi-Drug Resistant Organisms: None Reported Past Surgical History: Cholecystectomy, Hysterectomy, Orthopedic Surgery Additional Past Surgical History / Comment(s): Colonoscopy; EGD; Cataracts thyroidectomy, hip repair Past Anesthesia/Blood Transfusion Reactions: No Reported Reaction Past Psychological History: No Psychological Hx Reported Smoking Status: Never smoker Past Alcohol Use History: None Reported Past Drug Use History: None Reported - Past Family History Mother Family Medical History: No Reported History Medications and Allergies Home Medications Medication Instructions Recorded Confirmed Type Omeprazole [PriLOSEC] 20 mg PO DAILY PRN 08/04/16 06/30/23 History Alendronate Sodium [Fosamax] 70 mg PO TH 07/07/22 06/30/23 History Multivitamin/Iron/Folic Acid 1 tab PO DAILY 07/07/22 06/30/23 History [Centrum Women Tablet] Cholecalciferol (Vitamin D3) 50 mcg PO QID 06/30/23 06/30/23 History [Vitamin D3 (50 Mcg = 2000 Iu)] Levothyroxine Sodium [Synthroid] 112.5 mcg PO DAILY 06/30/23 06/30/23 History Allergies Allergy/AdvReac Type Severity Reaction Status Date / Time calcitriol [From Rocaltrol] Allergy Rash/Hives Verified 06/30/23 11:51 latex Allergy Rash/Hives Verified 06/30/23 11:51 pneumococcal vaccine Allergy Unknown Verified 06/30/23 11:51 propoxyphene HCl Allergy Unknown Verified 06/30/23 11:51 [From Darvon] aspirin AdvReac Nausea & Verified 06/30/23 11:51 Vomiting codeine AdvReac Nausea & Verified 06/30/23 11:51 Vomiting Sulfa (Sulfonamide AdvReac Nausea & Verified 06/30/23 11:51 Antibiotics) Vomiting Physical Exam Vitals: Intake and Output 07/03/23 07/04/23 07/04/23 22:59 06:59 14:59 Other: Weight 42.3 kg
[2023-07-04] MEDS: LORazepam 2 MG/ML INJ IV SCH (17:47)
[2023-07-05 09:23] VITALS: BMI 17.6
[2023-07-05] MEDS ORDERED: LORazepam 1 MG/0.5 ML VIAL IV PRN (17:06)
[2023-07-05] MEDS: LORazepam 1 MG/0.5 ML VIAL IV SCH (17:36)
[2023-07-07] MEDS: ATROPINE OPHTH SOLN 1% 5ML BTL SUBLINGUAL PRN (00:19)
[2023-07-08 01:10] VITALS: BP 79/44
--- NOTE | 2023-07-08 08:34 | PN ---
PROGRESS NOTE DATE OF SERVICE: 07/05/2023 CHIEF COMPLAINT: Acute renal failure. HISTORY OF PRESENT ILLNESS: This lady is a comatose. Hospice is watching her medications. PHYSICAL EXAMINATION: VITAL SIGNS: Blood pressure is only in the 90s. LUNGS: Breath sounds are heard bilaterally. CARDIAC: Normal. ABDOMEN: Flat. NEUROLOGIC: She is comatose. IMPRESSION: Terminal care for acute kidney injury. MMODL / IJN: [id number] /
--- NOTE | 2023-07-08 08:41 | PN ---
PROGRESS NOTE DATE OF SERVICE: 07/06/2023 CHIEF COMPLAINT: End of life care with coma. HISTORY OF PRESENT ILLNESS: This lady is in a coma, although she is still breathing. There is no family in attendance. PHYSICAL EXAMINATION: LUNGS: Shallow breath sounds are heard with agonal respiration. CARDIAC: Normal. IMPRESSION: End of life care for acute kidney injury, anuric. MMODL / IJN: [id number] /
[2023-07-08 14:25] VITALS: PULSE 112; TEMP 98.2
[2023-07-08] MEDS: LORazepam 1 MG/0.5 ML VIAL IV PRN (22:37)
[2023-07-09 02:39] VITALS: RESP 18
--- NOTE | 2023-07-09 04:10 | PN ---
PROGRESS NOTE CHIEF COMPLAINT: Hospice for end of life comfort. HISTORY OF PRESENT ILLNESS: This lady is breathing only very shallowly. PHYSICAL EXAMINATION: LUNGS: Breath sounds are heard bilaterally. HEART: Still beating a slow sinus rhythm. IMPRESSION: Stage 5 anuric renal failure with coma. PLAN: Continue with hospice care. ANSONL / IJN: [id number] /
--- NOTE | 2023-07-09 08:02 | PN ---
PROGRESS NOTE DATE OF SERVICE: 07/07/2023 CHIEF COMPLAINT: Acute anuric kidney failure. HISTORY OF PRESENT ILLNESS: This lady is still alive. Respiration is shallow. PHYSICAL EXAMINATION: CARDIAC: Normal. ABDOMEN: Soft. IMPRESSION: Acute anuric renal failure with coma. PLAN: The patient is comfortable at this time and there would be no further recommended treatment. MMODL / IJN: [id number] /
== END 2023-07-09 10:53 | disposition expired | DRG 951 ==
LOC: 2SICU 14:45 → 4SSUR 19:40
PROVIDERS: ADMIT Family Medicine; ATTEND Family Medicine
DX: Z51.5 Encounter for palliative care (principal); E43 Unspecified severe protein-calorie malnutrition; J10.08 Influenza due to other identified influenza virus with other specified pneumonia; J12.9 Viral pneumonia, unspecified; J96.01 Acute respiratory failure with hypoxia; R40.20 Unspecified coma; D68.9 Coagulation defect, unspecified; N18.5 Chronic kidney disease, stage 5; E89.0 Postprocedural hypothyroidism; E04.2 Nontoxic multinodular goiter; N17.9 Acute kidney failure, unspecified; D51.0 Vitamin B12 deficiency anemia due to intrinsic factor deficiency; Z68.1 Body mass index [BMI] 19.9 or less, adult; M81.0 Age-related osteoporosis without current pathological fracture; E86.0 Dehydration; K43.9 Ventral hernia without obstruction or gangrene; K21.9 Gastro-esophageal reflux disease without esophagitis; Z66 Do not resuscitate; Z79.83 Long term (current) use of bisphosphonates; Z79.890 Hormone replacement therapy; Z86.718 Personal history of other venous thrombosis and embolism; Z88.5 Allergy status to narcotic agent; Z88.2 Allergy status to sulfonamides; Z88.7 Allergy status to serum and vaccine; Z88.8 Allergy status to other drugs, medicaments and biological substances; Z88.6 Allergy status to analgesic agent; Z91.040 Latex allergy status
CPT/HCPCS: 94760